=== PATIENT | male | born 1990 | race Caucasian/White ===

== ENCOUNTER 2018-05-22 09:19 | Inpatient (IN) | payer OTHER ==
[2018-05-22 09:31] VITALS: BMI 20.7
--- NOTE | 2018-05-22 10:45 | HP ---
COWS - Scale Resting Pulse: 0= [place] 80 or Below Sweatin= Chills/Flushing Restless Observation: 1= Difficult to Sit Still Pupil Size: 0= Normal to Room Light Bone or Joint Aches: 2= Severe Diffuse Aches Runny Nose/ Eye Tearin= Nasal Congestion GI Upset > 30mins: 2= Nausea/Diarrhea Tremor Observation: 1= Tremor [place], Not Seen Yawning Observation: 1= 1-2x During Session Anxiety or Irritability: 1=Feels Anxious/Irritable Goose Flesh Skin: 0=Smooth Skin COWS Score: 10 CIWA Score - CIWA Score Nausea/Vomitin-Mild Nausea/No Vomiting Muscle Tremors: 1-None Visible, but [place] Anxiety: 2 Agitation: 1-Slight > Activity Paroxysmal Sweats: No Perspiration Orientation: 1-Uncertain about Date Tacttile Disturbances: 1-Very Mild Itch/Numbness Auditory Disturbances: 0-None Visual Disturbances: 0-None Headache: 1-Very Mild CIWA-Ar Total Score: 8 Admission ROS [facility] - HPI Chief Complaint: I need help, I get too sick without the heroin Allergies/Adverse Reactions: Allergies Allergy/AdvReac Type Severity Reaction Status Date / Time No Known Allergies Allergy Verified 05/22/18 10:38 History of Present Illness: 27 yo gentleman here for detox from alcohol, heroin. Denies seizures or black outs. First time here for treatment. Exam Limitations: Clinical Condition - Ebola screening Have you traveled outside of the country in the last 21 days: No Have you had contact with anyone from an Ebola affected area: No Have you been sick,other than usual withdrawal symptoms: No Do you have a fever: No - Review of Systems Constitutional: Loss of Appetite, Changes in sleep, Weakness EENT: reports: Nose Congestion Respiratory: reports: No Symptoms reported Cardiac: reports: No Symptoms Reported GI: reports: Nausea, Poor Appetite, Poor Fluid Intake, Abdominal cramping : reports: Frequency Musculoskeletal: reports: Back Pain, Muscle Pain Integumentary: reports: Dryness Neuro: reports: Headache Endocrine: reports: No Symptoms Reported Hematology: reports: No Symptoms Reported Psychiatric: reports: Judgement Intact, Mood/Affect Appropiate, Anxious Other Systems: Reviewed and Negative Patient History - Patient Medical History Hx Asthma: No Hx Chronic Obstructive Pulmonary Disease (COPD): No Hx Cancer: No Hx Cardiac Disorders: No Hx Congestive Heart Failure: No Hx Hypertension: No HX Cerebrovascular Accident: No Hx Seizures: No Hx Diabetes: No Hx Gastrointestinal Disorders: No Hx Liver Disease: No Hx Genitourinary Disorders: No Hx Sexually Transmitted Disorders: No Hx Renal Disease (ESRD): No Hx Thyroid Disease: No Hx Human Immunodeficiency Virus (HIV): No Hx Hepatitis C: No Hx Depression: No Hx Suicide Attempt: No Hx Schizophrenia: No - Patient Surgical History Past Surgical History: Yes Hx Neurologic Surgery: No Hx Cataract Extraction: No Hx Cardiac Surgery: No Hx Lung Surgery: No Hx Breast Surgery: No Hx Breast Biopsy: No Hx Abdominal Surgery: Yes (hernia repair- 2016) Hx Appendectomy: No Hx Cholecystectomy: No Hx Genitourinary Surgery: No Hx Section: No Hx Orthopedic Surgery: No - PPD History Previous Implant?: Yes Documented Results: Negative w/o proof Implanted On Prior R Admission?: No PPD to be Administered?: Yes - Reproductive History Patient is a Female of Child Bearing Age (11 -55 yrs old): No (male) - Smoking Cessation Smoking history: Never smoked Have you smoked in the past 12 months: No - Substance & Tx. History Hx Alcohol Use: Yes Hx Substance Use: Yes Substance Use Type: Alcohol, Cocaine, Heroin, Marijuana Hx Substance Use Treatment: Yes (history methadone program in [facility]) - Substances Abused Heroin Route: Injection Frequency: Daily Amount used: 4 bags-$40 Age of first use: 25 Date of Last Use: 05/22/18 Alcohol Route: Oral Frequency: Daily Amount used: beer-3cans 24 oz Age of first use: 18 Date of Last Use: 05/21/18 Cocaine Route: Injection Frequency: Daily Amount used: 1bag Age of first use: 27 Date of Last Use: 05/21/18 street methaone Route: Oral Frequency: 3-6 times per week Amount used: 10mg Age of first use: 26 Date of Last Use: 05/21/18 marijuana Route: Smoking Frequency: 1-2 times per week Amount used: 1 blunt Age of first use: 18 Date of Last Use: 05/20/18 Family Disease History - Family Disease History Family Disease History: Other: Father ( - fire - etoh), Mother (living - healthy), Brother (four - living - healthy), Sister (two - living - healthy), Daughter (two - 8 and six ) Admission Physical Exam [facility] - Vital Signs Vital Signs: Vital Signs - 24 hr 05/22/18 09:29 Temperature 97.4 F L Pulse Rate 79 Respiratory 18 Rate Blood Pressure 133/70 - Physical General Appearance: Yes: Nourished, Appropriately Dressed, Moderate Distress, Thin, Anxious HEENTM: Yes: EOMI, Hearing grossly Normal, Normocephalic, Normal Voice, Pharynx Normal Respiratory: Yes: Normal Breath Sounds, No Respiratory Distress Neck: Yes: No masses,lesions,Nodules, Supple Breast: Yes: Breast Exam Deferred Cardiology: Yes: Regular Rhythm, Regular Rate Abdominal: Yes: Flat, Soft Genitourinary: Yes: Frequency Back: Yes: Normal Inspection Musculoskeletal: Yes: full range of Motion, Gait Steady Extremities: Yes: Normal Capillary Refill, Normal Inspection, Normal Range of Motion, Non-Tender Neurological: Yes: Alert, Motor Strength 5/5, Normal Mood/Affect, Normal Response Integumentary: Yes: Normal Color, Warm, Track [place] (both arms) Lymphatic: Yes: Within Normal Limits - Diagnostic (1) Alcohol dependence with uncomplicated withdrawal Current Visit: Yes Status: Acute (2) Opioid dependence with withdrawal Current Visit: Yes Status: Acute (3) Cocaine dependence Current Visit: Yes Status: Acute Qualifiers: Substance use status: uncomplicated Qualified Code(s): F14.20 - Cocaine dependence, uncomplicated (4) Marijuana dependence Current Visit: Yes Status: Acute (5) Underweight Current Visit: Yes Status: Acute Cleared for Admission [facility] - Detox or Rehab [facility] Level of Care: Medically Managed Detox Regimen/Protocol: Methadone/Librium [facility] Breath Alcohol Content Breath Alcohol Content: 0 Urine Drug Screen - Results Drug Screen Negative: No Urine Drug Screen Results: THC-Marijuana, CHAKA-Cocaine, OPI-Opiates, MTD- Methadone
[2018-05-22] MEDS ORDERED: MAGNESIUM CITRATE 300 ML BOTTLE PO PRN (10:51)
[2018-05-22] MEDS ORDERED: chlordiazePOXIDE HCL 25 MG CAPSULE PO PRN (10:51)
[2018-05-22] MEDS ORDERED: LOPERAMIDE HCL 2 MG CAPSULE PO PRN (10:51)
[2018-05-22] MEDS ORDERED: MAG HYDROX/AL HYDROX/SIMETH 30 ML UNIT-DOSE CUP PO PRN (10:51)
[2018-05-22] MEDS ORDERED: guaiFENesin/D-METHORPHAN HB 10 ML UNIT-DOSE CUPS PO PRN (10:51)
[2018-05-22] MEDS ORDERED: P-EPHED 60MG/TRIPROLIDI 2.5MG TABLET PO PRN (10:51)
[2018-05-22] MEDS ORDERED: ACETAMINOPHEN 325 MG TABLET (FP) PO PRN (10:51)
[2018-05-22] MEDS ORDERED: MAGNESIUM HYDROX 2400MG/30ML ORAL SUSPENSION 30 ML CUP PO PRN (10:51)
[2018-05-22] MEDS ORDERED: MENTHOL/PHENOL 1 EACH UD MM PRN (10:51)
[2018-05-22] MEDS ORDERED: IBUPROFEN 400 MG TABLET (FP) PO PRN (10:51)
[2018-05-22] MEDS ORDERED: METHADONE HCL 10 MG TABLET (FOR DETOX USE ONLY) PO ONE ×2 (12:00→23:00)
[2018-05-22] MEDS ORDERED: chlordiazePOXIDE HCL 25 MG CAPSULE PO ONE (12:00)
--- NOTE | 2018-05-22 14:43 | EKG ---
Test Reason : Blood Pressure : / mmHG Vent. Rate : 061 BPM Atrial Rate : 061 BPM P-R Int : 144 ms QRS Dur : 094 ms QT Int : 426 ms P-R-T Axes : 054 081 055 degrees QTc Int : 428 ms NORMAL SINUS RHYTHM NORMAL ECG NO PREVIOUS ECGS AVAILABLE Confirmed by Rhys Osborn ([id number]) on 05/22/2018 2:42:42 PM Referred By: Abby Agrawal Confirmed By:Rhys Osborn
[2018-05-22] MEDS: chlordiazePOXIDE HCL 25 MG CAPSULE PO SCH ×2 (17:21→22:46)
[2018-05-22] MEDS ORDERED: MELATONIN 5 MG TABLETS PO PRN (22:00)
[2018-05-22 22:11] LABS: URINE APPEARANCE CLEAR; URINE BILIRUBIN NEGATIVE (<2.0 mg/dL); URINE COLOR YELLOW; URINE GLUCOSE (UA) NEGATIVE (NEGATIVE); URINE KETONE NEGATIVE (NEGATIVE); URINE LEUK ESTERASE NEGATIVE (NEGATIVE); URINE NITRITE NEGATIVE (NEGATIVE); URINE PROTEIN NEGATIVE (NEGATIVE); URINE UROBILINOGEN 4.0 E.U/dl mg/dL (0.2-1.0)
[2018-05-22] MEDS: THIAMINE HCL 100 MG TABLET (FP) PO SCH (22:46)
[2018-05-23] MEDS: chlordiazePOXIDE HCL 25 MG CAPSULE PO SCH ×4 (06:00→22:32)
[2018-05-23] MEDS ORDERED: METHADONE HCL 10 MG TABLET (FOR DETOX USE ONLY) PO SCH (10:00)
[2018-05-23 10:14] LABS: HEMATOCRIT 41.5 % (35.4-49); HEMOGLOBIN 13.5 GM/dL (11.7-16.9); MCH 31.7 pg (25.7-33.7); MCHC 32.6 g/dl (32.0-35.9); MEAN CELL VOLUME 97.2 fl (80-96); MEAN PLT VOLUME 7.8 fl (7.5-11.1); PLATELET COUNT 239 K/MM3 (134-434); RBC 4.27 M/mm3 (4.00-5.60); RDW 13.8 % (11.9-15.9); WHITE BLOOD COUNT 3.7 K/mm3 (4.0-10.0)
[2018-05-23] MEDS: PRENATAL VITAMINS W/ FOLIC ACID TABLET (FP) PO SCH (10:23)
[2018-05-23 10:28] LABS: ALBUMIN 3.2 g/dl (3.4-5.0); ANION GAP 5 (8-16); BILIRUBIN,TOTAL 0.5 mg/dL (0.2-1.0); BLOOD UREA NITROGEN 14 mg/dL (7-18); CALCIUM 10.1 mg/dL (8.5-10.1); CHLORIDE 109 mmol/L (98-107); CO2 29 mmol/L (21-32); GLUCOSE,RANDOM 76 mg/dL (74-106); POTASSIUM 4.6 mmol/L (3.5-5.1); SGOT/AST 31 U/L (15-37); SGPT/ALT 33 U/L (12-78); SODIUM 143 mmol/L (136-145); TOT PROT 6.2 g/dl (6.4-8.2)
[2018-05-23 10:29] LABS: ALK PHOS 78 U/L (45-117); CREATININE 0.8 mg/dL (0.7-1.3)
--- NOTE | 2018-05-23 11:34 | PN ---
[facility] Progress Note Note: Vital Signs Temperature 97.7 F 05/23/18 09:24 Pulse Rate 75 05/23/18 09:24 Respiratory Rate 18 05/23/18 09:24 Blood Pressure 129/84 05/23/18 09:24 O2 Sat by Pulse Oximetry (%) Laboratory Last Values WBC 3.7 K/mm3 (4.0-10.0) L 05/23/18 07:20 RBC 4.27 M/mm3 (4.00-5.60) 05/23/18 07:20 Hgb 13.5 GM/dL (11.7-16.9) 05/23/18 07:20 Hct 41.5 % (35.4-49) 05/23/18 07:20 MCV 97.2 fl (80-96) H 05/23/18 07:20 MCH 31.7 pg (25.7-33.7) 05/23/18 07:20 MCHC 32.6 g/dl (32.0-35.9) 05/23/18 07:20 RDW 13.8 % (11.9-15.9) 05/23/18 07:20 Plt Count 239 K/MM3 (134-434) 05/23/18 07:20 MPV 7.8 fl (7.5-11.1) 05/23/18 07:20 Sodium 143 mmol/L (136-145) 05/23/18 07:20 Potassium 4.6 mmol/L (3.5-5.1) 05/23/18 07:20 Chloride 109 mmol/L (98-107) H 05/23/18 07:20 Carbon Dioxide 29 mmol/L (21-32) 05/23/18 07:20 Anion Gap 5 (8-16) L 05/23/18 07:20 BUN 14 mg/dL (7-18) 05/23/18 07:20 Creatinine 0.8 mg/dL (0.7-1.3) 05/23/18 07:20 Creat Clearance w eGFR > 60 (>60) 05/23/18 07:20 Random Glucose 76 mg/dL (74-106) 05/23/18 07:20 Calcium 10.1 mg/dL (8.5-10.1) 05/23/18 07:20 Total Bilirubin 0.5 mg/dL (0.2-1.0) 05/23/18 07:20 AST 31 U/L (15-37) 05/23/18 07:20 ALT 33 U/L (12-78) 05/23/18 07:20 Alkaline Phosphatase 78 U/L (45-117) 05/23/18 07:20 Total Protein 6.2 g/dl (6.4-8.2) L 05/23/18 07:20 Albumin 3.2 g/dl (3.4-5.0) L 05/23/18 07:20 Urine Color Yellow 05/22/18 15:00 Urine Appearance Clear 05/22/18 15:00 Urine pH 7.0 (5.0-8.0) 05/22/18 15:00 Ur Specific [place] 1.021 (1.001-1.035) 05/22/18 15:00 Urine Protein Negative (NEGATIVE) 05/22/18 15:00 Urine Glucose (UA) Negative (NEGATIVE) 05/22/18 15:00 Urine Ketones Negative (NEGATIVE) 05/22/18 15:00 Urine Blood Negative (NEGATIVE) 05/22/18 15:00 Urine Nitrite Negative (NEGATIVE) 05/22/18 15:00 Urine Bilirubin Negative (<2.0 mg/dL) 05/22/18 15:00 Urine Urobilinogen 4.0 e.u/dl mg/dL (0.2-1.0) 05/22/18 15:00 Ur Leukocyte Esterase Negative (NEGATIVE) 05/22/18 15:00 RPR Titer Nonreactive (NONREACTIVE) 05/23/18 07:20 HIV 1&2 Antibody Screen Negative 05/23/18 07:20 HIV P24 Antigen Negative 05/23/18 07:20 Patient reports he shared a needle with his friend prior to admission and is concerned regarding meli Hep C. HCV labs ordered. Needle safety discussed with patient.
--- NOTE | 2018-05-23 14:10 | PN ---
[facility] CIWA - CIWA Score Nausea/Vomitin Muscle Tremors: 3 Anxiety: 3 Agitation: 3 Paroxysmal Sweats: 3 Orientation: 0-Oriented Tacttile Disturbances: 0-None Auditory Disturbances: 0-None Visual Disturbances: 0-None Headache: 0-None Present CIWA-Ar Total Score: 15 S COWS - Scale Resting Pulse: 0= [place] 80 or Below Sweatin= Chills/Flushing Restless Observation: 1= Difficult to Sit Still Pupil Size: 0= Normal to Room Light Bone or Joint Aches: 1= Mild Discomfort Runny Nose/ Eye Tearin= Nasal Congestion GI Upset > 30mins: 1= Stomach Cramp Tremor Observation of Outstretched Hands: 2= Slight Tremor Visible Yawning Observation: 1= 1-2x During Session Anxiety or Irritability: 2=Irritable/Anxious Goose Flesh Skin: 0=Smooth Skin COWS Score: 10 [facility] Progress Note (SOAP) Subjective: Shakes sweats Anxious Objective: 05/23/18 14:07 Anxious A & O x 3, not acute distress Vital Signs Temperature 97.7 F 05/23/18 09:24 Pulse Rate 75 05/23/18 09:24 Respiratory Rate 18 05/23/18 09:24 Blood Pressure 129/84 05/23/18 09:24 O2 Sat by Pulse Oximetry (%) Laboratory Last Values WBC 3.7 K/mm3 (4.0-10.0) L 05/23/18 07:20 RBC 4.27 M/mm3 (4.00-5.60) 05/23/18 07:20 Hgb 13.5 GM/dL (11.7-16.9) 05/23/18 07:20 Hct 41.5 % (35.4-49) 05/23/18 07:20 MCV 97.2 fl (80-96) H 05/23/18 07:20 MCH 31.7 pg (25.7-33.7) 05/23/18 07:20 MCHC 32.6 g/dl (32.0-35.9) 05/23/18 07:20 RDW 13.8 % (11.9-15.9) 05/23/18 07:20 Plt Count 239 K/MM3 (134-434) 05/23/18 07:20 MPV 7.8 fl (7.5-11.1) 05/23/18 07:20 Sodium 143 mmol/L (136-145) 05/23/18 07:20 Potassium 4.6 mmol/L (3.5-5.1) 05/23/18 07:20 Chloride 109 mmol/L (98-107) H 05/23/18 07:20 Carbon Dioxide 29 mmol/L (21-32) 05/23/18 07:20 Anion Gap 5 (8-16) L 05/23/18 07:20 BUN 14 mg/dL (7-18) 05/23/18 07:20 Creatinine 0.8 mg/dL (0.7-1.3) 05/23/18 07:20 Creat Clearance w eGFR > 60 (>60) 05/23/18 07:20 Random Glucose 76 mg/dL (74-106) 05/23/18 07:20 Calcium 10.1 mg/dL (8.5-10.1) 05/23/18 07:20 Total Bilirubin 0.5 mg/dL (0.2-1.0) 05/23/18 07:20 AST 31 U/L (15-37) 05/23/18 07:20 ALT 33 U/L (12-78) 05/23/18 07:20 Alkaline Phosphatase 78 U/L (45-117) 05/23/18 07:20 Total Protein 6.2 g/dl (6.4-8.2) L 05/23/18 07:20 Albumin 3.2 g/dl (3.4-5.0) L 05/23/18 07:20 Urine Color Yellow 05/22/18 15:00 Urine Appearance Clear 05/22/18 15:00 Urine pH 7.0 (5.0-8.0) 05/22/18 15:00 Ur Specific [place] 1.021 (1.001-1.035) 05/22/18 15:00 Urine Protein Negative (NEGATIVE) 05/22/18 15:00 Urine Glucose (UA) Negative (NEGATIVE) 05/22/18 15:00 Urine Ketones Negative (NEGATIVE) 05/22/18 15:00 Urine Blood Negative (NEGATIVE) 05/22/18 15:00 Urine Nitrite Negative (NEGATIVE) 05/22/18 15:00 Urine Bilirubin Negative (<2.0 mg/dL) 05/22/18 15:00 Urine Urobilinogen 4.0 e.u/dl mg/dL (0.2-1.0) 05/22/18 15:00 Ur Leukocyte Esterase Negative (NEGATIVE) 05/22/18 15:00 RPR Titer Nonreactive (NONREACTIVE) 05/23/18 07:20 HIV 1&2 Antibody Screen Negative 05/23/18 07:20 HIV P24 Antigen Negative 05/23/18 07:20 labs noted, wnl Assessment: 05/23/18 14:09 withdrawal sx Plan: continue detox
[2018-05-23] MEDS ORDERED: NICOTINE POLACRILEX 4 MG GUM BUC PRN (17:28)
--- NOTE | 2018-05-23 17:31 | PN ---
[facility] Progress Note Note: Patient requested nicotine gum, patient uses 1-2 packs of cigarettes per day. GUM 4mg and patch 21 mg ordered.
[2018-05-23] MEDS: THIAMINE HCL 100 MG TABLET (FP) PO SCH (22:32)
[2018-05-24] MEDS: chlordiazePOXIDE HCL 25 MG CAPSULE PO SCH ×2 (06:32→10:09)
[2018-05-24] MEDS: PRENATAL VITAMINS W/ FOLIC ACID TABLET (FP) PO SCH (10:09)
[2018-05-24] MEDS: METHADONE HCL 5 MG TABLET (FOR DETOX USE ONLY) PO SCH (10:09)
[2018-05-24] MEDS: NICOTINE 21 MG/24 HOURS TOPICAL PATCH TD SCH (10:10)
--- NOTE | 2018-05-24 12:22 | CONSULT ---
[facility] Psychiatric Consult - Data Date of interview: 05/24/18 Admission source: [facility]
[2018-05-24] MEDS: hydrOXYzine PAMOATE 25 MG CAPSULE (FP) PO PRN (14:13)
--- NOTE | 2018-05-24 15:14 | PN ---
S CIWA - CIWA Score Nausea/Vomitin Muscle Tremors: 3 Anxiety: 4-Mod. Anxious/Guarded Agitation: 5 Paroxysmal Sweats: 2 Orientation: 0-Oriented Tacttile Disturbances: 0-None Auditory Disturbances: 0-None Visual Disturbances: 0-None Headache: 0-None Present CIWA-Ar Total Score: 16 S Progress Note (SOAP) Subjective: Shakes sweats Anxious, Objective: 05/24/18 15:09 Anxious A & O x 3, not acute distress Repeatedly asking about his Hep C status. Vital Signs Temperature 97.3 F L 05/24/18 14:31 Pulse Rate 65 05/24/18 14:31 Respiratory Rate 16 05/24/18 14:31 Blood Pressure 128/72 05/24/18 14:31 O2 Sat by Pulse Oximetry (%) withdrawal sx Anxiety Plan: continue detox Await result from lab - explained to pt that the the Ab test will be ready in a couple of days
[2018-05-24] MEDS: chlordiazePOXIDE 5 MG CAPSULE PO SCH ×2 (17:32→22:08)
[2018-05-24] MEDS: THIAMINE HCL 100 MG TABLET (FP) PO SCH (22:08)
[2018-05-25] MEDS: chlordiazePOXIDE 5 MG CAPSULE PO SCH ×2 (06:12→10:19)
[2018-05-25] MEDS: NICOTINE 21 MG/24 HOURS TOPICAL PATCH TD SCH (10:19)
[2018-05-25] MEDS: PRENATAL VITAMINS W/ FOLIC ACID TABLET (FP) PO SCH (10:19)
[2018-05-25] MEDS: METHADONE HCL 5 MG TABLET (FOR DETOX USE ONLY) PO SCH (10:20)
--- NOTE | 2018-05-25 13:36 | PN ---
[facility] Progress Note (SOAP) Subjective: Sweating, Anxious. Objective: PATIENT A & O X 3, OBSERVED AMBULATING ON UNIT. NO ACUTE DISTRESS. 05/25/18 13:34 Vital Signs Temperature 97.4 F L 05/25/18 13:32 Pulse Rate 81 05/25/18 13:32 Respiratory Rate 16 05/25/18 13:32 Blood Pressure 130/74 05/25/18 13:32 O2 Sat by Pulse Oximetry (%) Laboratory Tests 05/22/18 05/23/18 05/23/18 15:00 07:20 07:20 WBC 3.7 L RBC 4.27 Hgb 13.5 Hct 41.5 MCV 97.2 H MCH 31.7 MCHC 32.6 RDW 13.8 Plt Count 239 MPV 7.8 Sodium Potassium Chloride Carbon Dioxide Anion Gap BUN Creatinine Creat Clearance w eGFR Random Glucose Calcium Total Bilirubin AST ALT Alkaline Phosphatase Total Protein Albumin Urine Color Yellow Urine Appearance Clear Urine pH 7.0 Ur Specific [place] 1.021 Urine Protein Negative Urine Glucose (UA) Negative Urine Ketones Negative Urine Blood Negative Urine Nitrite Negative Urine Bilirubin Negative Urine Urobilinogen 4.0 e.u/dl Ur Leukocyte Esterase Negative RPR Titer Hep C Ab Diagnostic Liver Fibrosis Interp HIV 1&2 Antibody Screen Negative HIV P24 Antigen Negative 05/23/18 05/23/18 05/24/18 07:20 07:20 07:00 WBC RBC Hgb Hct MCV MCH MCHC RDW Plt Count MPV Sodium 143 Potassium 4.6 Chloride 109 H Carbon Dioxide 29 Anion Gap 5 L BUN 14 Creatinine 0.8 Creat Clearance w eGFR > 60 Random Glucose 76 Calcium 10.1 Total Bilirubin 0.5 AST 31 ALT 33 Alkaline Phosphatase 78 Total Protein 6.2 L Albumin 3.2 L Urine Color Urine Appearance Urine pH Ur Specific [place] Urine Protein Urine Glucose (UA) Urine Ketones Urine Blood Urine Nitrite Urine Bilirubin Urine Urobilinogen Ur Leukocyte Esterase RPR Titer Nonreactive Hep C Ab Diagnostic <0.1 Liver Fibrosis Interp HIV 1&2 Antibody Screen HIV P24 Antigen LABS NOTED. Assessment: 05/25/18 13:35 WITHDRAWAL SYMPTOMS. Plan: CONTINUE DETOX. INCREASE DAILY PO FLUID INTAKE.
[2018-05-25] MEDS: chlordiazePOXIDE HCL 10 MG CAPSULE PO SCH ×2 (17:32→23:16)
[2018-05-25] MEDS: THIAMINE HCL 100 MG TABLET (FP) PO SCH (23:16)
[2018-05-26] MEDS: chlordiazePOXIDE HCL 10 MG CAPSULE PO SCH ×2 (05:43→10:23)
[2018-05-26] MEDS ORDERED: METHADONE HCL 10 MG TABLET (FOR DETOX USE ONLY) PO SCH (10:00)
[2018-05-26] MEDS: NICOTINE 21 MG/24 HOURS TOPICAL PATCH TD SCH (10:23)
[2018-05-26] MEDS: PRENATAL VITAMINS W/ FOLIC ACID TABLET (FP) PO SCH (10:23)
--- NOTE | 2018-05-26 14:50 | PN ---
[facility] Progress Note (SOAP) Subjective: Anxious, Sweating. Objective: 05/26/18 14:51 Vital Signs Temperature 97.1 F L 05/26/18 13:58 Pulse Rate 87 05/26/18 13:58 Respiratory Rate 20 05/26/18 13:58 Blood Pressure 105/63 05/26/18 13:58 O2 Sat by Pulse Oximetry (%) Laboratory Tests 05/22/18 05/23/18 05/23/18 15:00 07:20 07:20 WBC 3.7 L RBC 4.27 Hgb 13.5 Hct 41.5 MCV 97.2 H MCH 31.7 MCHC 32.6 RDW 13.8 Plt Count 239 MPV 7.8 Sodium Potassium Chloride Carbon Dioxide Anion Gap BUN Creatinine Creat Clearance w eGFR Random Glucose Calcium Total Bilirubin AST ALT Alkaline Phosphatase Total Protein Albumin Urine Color Yellow Urine Appearance Clear Urine pH 7.0 Ur Specific [place] 1.021 Urine Protein Negative Urine Glucose (UA) Negative Urine Ketones Negative Urine Blood Negative Urine Nitrite Negative Urine Bilirubin Negative Urine Urobilinogen 4.0 e.u/dl Ur Leukocyte Esterase Negative RPR Titer Hep C Ab Diagnostic Liver Fibrosis Interp HIV 1&2 Antibody Screen Negative HIV P24 Antigen Negative 05/23/18 05/23/18 05/24/18 07:20 07:20 07:00 WBC RBC Hgb Hct MCV MCH MCHC RDW Plt Count MPV Sodium 143 Potassium 4.6 Chloride 109 H Carbon Dioxide 29 Anion Gap 5 L BUN 14 Creatinine 0.8 Creat Clearance w eGFR > 60 Random Glucose 76 Calcium 10.1 Total Bilirubin 0.5 AST 31 ALT 33 Alkaline Phosphatase 78 Total Protein 6.2 L Albumin 3.2 L Urine Color Urine Appearance Urine pH Ur Specific [place] Urine Protein Urine Glucose (UA) Urine Ketones Urine Blood Urine Nitrite Urine Bilirubin Urine Urobilinogen Ur Leukocyte Esterase RPR Titer Nonreactive Hep C Ab Diagnostic <0.1 Liver Fibrosis Interp HIV 1&2 Antibody Screen HIV P24 Antigen LABS NOTED. Assessment: 05/26/18 14:51 WITHDRAWAL SYMPTOMS. Plan: CONTINUE DETOX. PATIENT MADE AWARE OF (NEGATIVE) HCV RESULT. PATIENT SCHEDULED FOR D/C TOMORROW.
[2018-05-26] MEDS: THIAMINE HCL 100 MG TABLET (FP) PO SCH (23:10)
[2018-05-27] MEDS: hydrOXYzine PAMOATE 25 MG CAPSULE (FP) PO PRN (01:26)
[2018-05-27] MEDS ORDERED: METHADONE HCL 5 MG TABLET (FOR DETOX USE ONLY) PO SCH (06:00)
[2018-05-27 10:22] VITALS: BP 140/85; PULSE 84; TEMP 97.5
--- NOTE | 2018-05-27 15:56 | PN ---
[facility] Progress Note (SOAP) Subjective: Patient denies current Detox symptoms and reports that he feels well overall. Objective: PATIENT A & O X 3, OBSERVED AMBULATING ON UNIT. NO ACUTE DISTRESS. 05/27/18 16:06 Vital Signs Temperature 97.5 F L 05/27/18 09:30 Pulse Rate 84 05/27/18 09:30 Respiratory Rate 20 05/27/18 09:30 Blood Pressure 140/85 05/27/18 09:30 O2 Sat by Pulse Oximetry (%) Laboratory Tests 05/22/18 05/23/18 05/23/18 15:00 07:20 07:20 WBC 3.7 L RBC 4.27 Hgb 13.5 Hct 41.5 MCV 97.2 H MCH 31.7 MCHC 32.6 RDW 13.8 Plt Count 239 MPV 7.8 Sodium Potassium Chloride Carbon Dioxide Anion Gap BUN Creatinine Creat Clearance w eGFR Random Glucose Calcium Total Bilirubin AST ALT Alkaline Phosphatase Total Protein Albumin Urine Color Yellow Urine Appearance Clear Urine pH 7.0 Ur Specific [place] 1.021 Urine Protein Negative Urine Glucose (UA) Negative Urine Ketones Negative Urine Blood Negative Urine Nitrite Negative Urine Bilirubin Negative Urine Urobilinogen 4.0 e.u/dl Ur Leukocyte Esterase Negative RPR Titer Hep C Ab Diagnostic Liver Fibrosis Interp HIV 1&2 Antibody Screen Negative HIV P24 Antigen Negative 05/23/18 05/23/18 05/24/18 07:20 07:20 07:00 WBC RBC Hgb Hct MCV MCH MCHC RDW Plt Count MPV Sodium 143 Potassium 4.6 Chloride 109 H Carbon Dioxide 29 Anion Gap 5 L BUN 14 Creatinine 0.8 Creat Clearance w eGFR > 60 Random Glucose 76 Calcium 10.1 Total Bilirubin 0.5 AST 31 ALT 33 Alkaline Phosphatase 78 Total Protein 6.2 L Albumin 3.2 L Urine Color Urine Appearance Urine pH Ur Specific [place] Urine Protein Urine Glucose (UA) Urine Ketones Urine Blood Urine Nitrite Urine Bilirubin Urine Urobilinogen Ur Leukocyte Esterase RPR Titer Nonreactive Hep C Ab Diagnostic <0.1 Liver Fibrosis Interp HIV 1&2 Antibody Screen HIV P24 Antigen LABS NOTED. Assessment: 05/27/18 16:06 COMPLETION OF DETOX REGIMEN. Plan: PATIENT SCHEDULED FOR DISCHARGE FROM DETOX UNIT TODAY.
--- NOTE | 2018-05-27 16:09 | DS ---
[facility] Detox Discharge Summary Admission Date: 05/22/18 Discharge Date: 05/27/18 - History Present History: Alcohol Dependence, Cannabis Dependence, Cocaine Dependence, Opioid Dependence Additional Comments: PATIENT GOING TO [facility] ([place], [place] AND WILL ATTEND '[facility]' (OUTPATIENT, [place], [place] FOR AFTERCARE. PATIENT WAS DISCHARGED FROM DETOX UNIT IN STABLE MEDICAL CONDITION. Pertinent Past History: Underweight. - Physical Exam Results Vital Signs: Vital Signs Temperature 97.5 F L 05/27/18 09:30 Pulse Rate 84 05/27/18 09:30 Respiratory Rate 20 05/27/18 09:30 Blood Pressure 140/85 05/27/18 09:30 O2 Sat by Pulse Oximetry (%) Pertinent Admission Physical Exam Findings: WITHDRAWAL SYMPTOMS. Laboratory Tests 05/22/18 05/23/18 05/23/18 15:00 07:20 07:20 WBC 3.7 L RBC 4.27 Hgb 13.5 Hct 41.5 MCV 97.2 H MCH 31.7 MCHC 32.6 RDW 13.8 Plt Count 239 MPV 7.8 Sodium Potassium Chloride Carbon Dioxide Anion Gap BUN Creatinine Creat Clearance w eGFR Random Glucose Calcium Total Bilirubin AST ALT Alkaline Phosphatase Total Protein Albumin Urine Color Yellow Urine Appearance Clear Urine pH 7.0 Ur Specific [place] 1.021 Urine Protein Negative Urine Glucose (UA) Negative Urine Ketones Negative Urine Blood Negative Urine Nitrite Negative Urine Bilirubin Negative Urine Urobilinogen 4.0 e.u/dl Ur Leukocyte Esterase Negative RPR Titer Hep C Ab Diagnostic Liver Fibrosis Interp HIV 1&2 Antibody Screen Negative HIV P24 Antigen Negative 05/23/18 05/23/18 05/24/18 07:20 07:20 07:00 WBC RBC Hgb Hct MCV MCH MCHC RDW Plt Count MPV Sodium 143 Potassium 4.6 Chloride 109 H Carbon Dioxide 29 Anion Gap 5 L BUN 14 Creatinine 0.8 Creat Clearance w eGFR > 60 Random Glucose 76 Calcium 10.1 Total Bilirubin 0.5 AST 31 ALT 33 Alkaline Phosphatase 78 Total Protein 6.2 L Albumin 3.2 L Urine Color Urine Appearance Urine pH Ur Specific [place] Urine Protein Urine Glucose (UA) Urine Ketones Urine Blood Urine Nitrite Urine Bilirubin Urine Urobilinogen Ur Leukocyte Esterase RPR Titer Nonreactive Hep C Ab Diagnostic <0.1 Liver Fibrosis Interp HIV 1&2 Antibody Screen HIV P24 Antigen LABS NOTED. - Treatment Hospital Course: Detox Protocol Followed, Detoxed Safely, Responded well, Discharged Condition Good Patient has Accepted a Rehab Referral to: PATIENT GOING TO [facility] ([place]PAT[place], [place]). - Medication Discharge Medications: Ambulatory Orders NK [No Known Home Medication] 05/22/18 - Diagnosis (1) Alcohol dependence with uncomplicated withdrawal Status: Acute (2) Cocaine dependence Status: Acute Qualifiers: Substance use status: uncomplicated Qualified Code(s): F14.20 - Cocaine dependence, uncomplicated (3) Marijuana dependence Status: Acute (4) Opioid dependence with withdrawal Status: Acute (5) Underweight Status: Acute - AMA Did Patient Leave Against Medical Advice: No
== END 2018-05-27 09:25 | disposition home or self-care (01) | DRG 773 ==
LOC: YASAS 09:19 → Y3N 11:37
PROVIDERS: ADMIT Surgery; ATTEND Surgery
PROC: HZ2ZZZZ Detoxification Services for Substance Abuse Treatment (ICD-10-PCS; principal; 2018-05-22)
DX: F11.23 Opioid dependence with withdrawal (principal); F10.230 Alcohol dependence with withdrawal, uncomplicated; F14.20 Cocaine dependence, uncomplicated; F12.20 Cannabis dependence, uncomplicated; R63.6 Underweight; Z68.20 Body mass index [BMI] 20.0-20.9, adult
CPT/HCPCS: 36415; 80053; 81003; 85027; 86593; 86803; 87389; 93005; 93010

== ENCOUNTER 2019-01-03 11:54 | Inpatient (IN) | payer OTHER ==
[2019-01-03 12:35] VITALS: BMI 22.4
--- NOTE | 2019-01-03 14:41 | HP ---
CIWA Score Nausea/Vomitin-Mild Nausea/No Vomiting Muscle Tremors: 4-Moderate,w/Arms Extend Anxiety: 4-Mod. Anxious/Guarded Agitation: 4-Moderately Restless Paroxysmal Sweats: 3 Orientation: 0-Oriented Tacttile Disturbances: 0-None Auditory Disturbances: 0-None Visual Disturbances: 0-None Headache: 0-None Present CIWA-Ar Total Score: 16 - Admission Criteria OASAS Guidelines: Admission for Medically Managed Detox: Requires at least one of the followin. CIWA greater than 12 2. Seizures within the past 24 hours 3. Delirium tremens within the past 24 hours 4. Hallucinations within the past 24 hours 5. Acute intervention needed for co occurring medical disorder 6. Acute intervention needed for co occurring psychiatric disorder 7. Severe withdrawal that cannot be handled at a lower level of care (continued vomiting, continued diarrhea, abnormal vital signs) requiring intravenous medication and/or fluids 8. Admission ROS [facility] Chief Complaint: pt is a 28yrold male with a history of alcohol dependence seeking detox for treatment. Allergies/Adverse Reactions: Allergies Allergy/AdvReac Type Severity Reaction Status Date / Time No Known Allergies Allergy Verified 01/03/19 13:00 History of Present Illness: pt also states he had belonged to a [facility] ([facility])but was discharged and referred to a suboxone program ([facility]). Pt states and it was confirmed he was at the program on thursday and received one SL 8mg/2mg but now pt is refusing to return to the suboxone program because he didnt like the way it made him feel. U/A toxicology result was pos for methadone and cannabis only. When asked about the methadone pt confessed he had take home bottles from his [facility] program and didnt returned them but did take the methadone. Pt was told he can return back to his suboxone program but pt refused to return back to taking suboxone. Pt was made aware he will not be detox with any methadone there is no opiates in his urine and he will need to go back to the methadone program and drop off the last two bottles he was given. pt in agreement. pt was also made aware he will only be detoxed for his alcohol dependence. pt in agreement. Exam Limitations: No Limitations - Ebola screening Have you traveled outside of the country in the last 21 days: No Have you had contact with anyone from an Ebola affected area: No Have you been sick,other than usual withdrawal symptoms: No Do you have a fever: No - Review of Systems Constitutional: Chills, Diaphoresis, Night Sweats, Changes in sleep EENT: reports: Tearing, Nose Congestion Respiratory: reports: No Symptoms reported Cardiac: reports: No Symptoms Reported GI: reports: Diarrhea, Poor Appetite, Poor Fluid Intake : reports: No Symptoms Reported Musculoskeletal: reports: Back Pain, Joint Pain Integumentary: reports: Flushing, Sweating Neuro: reports: Headache, Tingling, Tremors Endocrine: reports: Excessive Sweating, Flushing, Intolerance to Cold, Intolerance to Heat Hematology: reports: No Symptoms Reported Psychiatric: reports: Judgement Intact, Mood/Affect Appropiate, Orientated x3, Agitated, Anxious Other Systems: Reviewed and Negative Patient History - Patient Medical History Hx Anemia: No Hx Asthma: No Hx Chronic Obstructive Pulmonary Disease (COPD): No Hx Cancer: No Hx Cardiac Disorders: No Hx Congestive Heart Failure: No Hx Hypertension: No Hx Hypercholesterolemia: No Hx Pacemaker: No HX Cerebrovascular Accident: No Hx Seizures: No Hx Dementia: No Hx Diabetes: No Hx Gastrointestinal Disorders: No Hx Liver Disease: No Hx Genitourinary Disorders: No Hx Sexually Transmitted Disorders: No Hx Renal Disease (ESRD): No Hx Thyroid Disease: No Hx Human Immunodeficiency Virus (HIV): No Hx Hepatitis C: No Hx Depression: No Hx Suicide Attempt: No Hx Schizophrenia: No - Patient Surgical History Past Surgical History: Yes Hx Neurologic Surgery: No Hx Cataract Extraction: No Hx Cardiac Surgery: No Hx Lung Surgery: No Hx Breast Surgery: No Hx Breast Biopsy: No Hx Abdominal Surgery: No Hx Appendectomy: No Hx Cholecystectomy: No Hx Genitourinary Surgery: No Hx Section: No Hx Orthopedic Surgery: No Other Surgical History: left inguinal hernia repair in 2016 - PPD History Previous Implant?: Yes Documented Results: Negative w/proof Implanted On Prior [facility] Admission?: Yes Date: 05/24/18 Results: 0 mm PPD to be Administered?: No - Reproductive History Patient is a Female of Child Bearing Age (11 -55 yrs old): No - Smoking Cessation Smoking history: Former smoker Have you smoked in the past 12 months: No If you are a former smoker, when did you quit?: at age 22 Hx Chewing Tobacco Use: No Initiated information on smoking cessation: No - Substance & Tx. History Hx Alcohol Use: Yes Hx Substance Use: Yes Substance Use Type: Alcohol, Cocaine, Marijuana Hx Substance Use Treatment: Yes - Substances Abused Cocaine Route: Injection Frequency: 3-6 times per week Amount used: $20-30 Age of first use: 25 Date of Last Use: 12/27/18 Alcohol-beer1 Route: Oral Frequency: Daily Amount used: 1-6 pk. Age of first use: 18 Date of Last Use: 01/02/19 Marijuana Route: Smoking Frequency: Daily Amount used: $5-10 Age of first use: 21 Date of Last Use: 01/02/19 Family Disease History - Family Disease History Family Disease History: Other: Father ( - fire - etoh), Mother (living - healthy), Brother (four - living - healthy), Sister (two - living - healthy), Daughter (two - 8 and six ) Admission Physical Exam [facility] - Vital Signs Vital Signs: Vital Signs - 24 hr 01/03/19 12:31 Temperature 99.0 F Pulse Rate 70 Respiratory 19 Rate Blood Pressure 122/74 - Physical General Appearance: Yes: Appropriately Dressed, Mild Distress, Thin, Tremorous, Irritable, Sweating, Anxious HEENTM: Yes: Hearing grossly Normal, Normal Voice, Nasal Congestion Respiratory: Yes: Lungs Clear, Normal Breath Sounds, No Respiratory Distress Neck: Yes: No masses,lesions,Nodules Breast: Yes: Within Normal Limits Cardiology: Yes: Regular Rhythm, Regular Rate, S1, S2 Abdominal: Yes: Normal Bowel Sounds, Non Tender, Soft Genitourinary: Yes: Within Normal Limits Back: Yes: Normal Inspection Musculoskeletal: Yes: full range of Motion, Back pain, Muscle Pain Extremities: Yes: Normal Capillary Refill, Normal Inspection, Non-Tender, Tremors Neurological: Yes: Fully Oriented, Alert, Normal Response Integumentary: Yes: Normal Color, Diaphoresis Lymphatic: Yes: Within Normal Limits - Diagnostic (1) Alcohol dependence with uncomplicated withdrawal Current Visit: Yes Status: Chronic (2) Cocaine dependence Current Visit: Yes Status: Chronic Qualifiers: Substance use status: uncomplicated Qualified Code(s): F14.20 - Cocaine dependence, uncomplicated (3) Marijuana dependence Current Visit: Yes Status: Chronic (4) Underweight Current Visit: Yes Status: Acute Cleared for Admission [facility] - Detox or Rehab [facility] Level of Care: Medically Managed Detox Regimen/Protocol: Librium [facility] Breath Alcohol Content Breath Alcohol Content: 0 Urine Drug Screen - Results Drug Screen Negative: No Urine Drug Screen Results: THC-Marijuana, MTD-Methadone Inpatient Rehab Admission - Rehab Decision to Admit Inpatient rehab admission?: No
[2019-01-03] MEDS ORDERED: MENTHOL/PHENOL 1 EACH UD MM PRN (14:58)
[2019-01-03] MEDS ORDERED: ACETAMINOPHEN 325 MG TABLET (FP) PO PRN (14:58)
[2019-01-03] MEDS ORDERED: IBUPROFEN 400 MG TABLET (FP) PO PRN (14:58)
[2019-01-03] MEDS ORDERED: MAG HYDROX/AL HYDROX/SIMETH 30 ML UNIT-DOSE CUP PO PRN (14:58)
[2019-01-03] MEDS ORDERED: guaiFENesin/D-METHORPHAN HB 10 ML UNIT-DOSE CUPS PO PRN (14:58)
[2019-01-03] MEDS ORDERED: MAGNESIUM HYDROX 2400MG/30ML ORAL SUSPENSION 30 ML CUP PO PRN (14:58)
[2019-01-03] MEDS ORDERED: LOPERAMIDE HCL 2 MG CAPSULE PO PRN (14:58)
[2019-01-03] MEDS ORDERED: chlordiazePOXIDE HCL 25 MG CAPSULE PO PRN (14:58)
[2019-01-03] MEDS ORDERED: MAGNESIUM CITRATE 300 ML BOTTLE PO PRN (14:58)
[2019-01-03] MEDS ORDERED: chlordiazePOXIDE HCL 25 MG CAPSULE PO ONE (14:58)
[2019-01-03] MEDS ORDERED: P-EPHED 60MG/TRIPROLIDI 2.5MG TABLET PO PRN (14:58)
[2019-01-03] MEDS: chlordiazePOXIDE HCL 25 MG CAPSULE PO SCH ×2 (16:41→22:52)
[2019-01-03] MEDS: hydrOXYzine PAMOATE 50 MG CAPSULE (FP) PO PRN ×2 (16:42→22:50)
[2019-01-03] MEDS: MELATONIN 5 MG TABLETS PO PRN (22:50)
[2019-01-03] MEDS: IBUPROFEN 400 MG TABLET (FP) PO PRN (22:50)
[2019-01-03] MEDS: THIAMINE HCL 100 MG TABLET (FP) PO SCH (22:50)
[2019-01-04] MEDS: chlordiazePOXIDE HCL 25 MG CAPSULE PO SCH ×4 (05:43→22:14)
[2019-01-04] MEDS: hydrOXYzine PAMOATE 50 MG CAPSULE (FP) PO PRN ×2 (10:24→22:13)
[2019-01-04] MEDS: PRENATAL VITAMINS W/ FOLIC ACID TABLET (FP) PO SCH (10:25)
[2019-01-04] MEDS: IBUPROFEN 400 MG TABLET (FP) PO PRN ×3 (10:26→22:13)
[2019-01-04 12:38] LABS: HEMATOCRIT 43.1 % (35.4-49); HEMOGLOBIN 14.3 GM/dL (11.7-16.9); MCH 31.4 pg (25.7-33.7); MCHC 33.2 g/dl (32.0-35.9); MEAN CELL VOLUME 94.6 fl (80-96); MEAN PLT VOLUME 7.8 fl (7.5-11.1); PLATELET COUNT 248 K/MM3 (134-434); RBC 4.55 M/mm3 (4.00-5.60); RDW 13.7 % (11.9-15.9); WHITE BLOOD COUNT 4.9 K/mm3 (4.0-10.0)
[2019-01-04 12:53] LABS: ALBUMIN 3.4 g/dl (3.4-5.0); ALK PHOS 86 U/L (45-117); ANION GAP 6 MMOL/L (8-16); BILIRUBIN,TOTAL 0.3 mg/dL (0.2-1); BLOOD UREA NITROGEN 10 mg/dL (7-18); CALCIUM 10.3 mg/dL (8.5-10.1); CHLORIDE 109 mmol/L (98-107); CO2 26 mmol/L (21-32); CREATININE 0.8 mg/dL (0.55-1.3); GLUCOSE,RANDOM 69 mg/dL (74-106); POTASSIUM 4.1 mmol/L (3.5-5.1); SGOT/AST 10 U/L (15-37); SGPT/ALT 20 U/L (13-61); SODIUM 141 mmol/L (136-145); TOT PROT 6.4 g/dl (6.4-8.2)
--- NOTE | 2019-01-04 15:17 | PN ---
S CIWA - CIWA Score Nausea/Vomitin-Mild Nausea/No Vomiting Muscle Tremors: 3 Anxiety: 3 Agitation: 2 Paroxysmal Sweats: 1-Minimal Palms Moist Orientation: 1-Uncertain about Date Tacttile Disturbances: 0-None Auditory Disturbances: 0-None Visual Disturbances: 0-None Headache: 1-Very Mild CIWA-Ar Total Score: 12 S Progress Note (SOAP) Subjective: tremor sweating restlessness itchy skull patient requests methadone / suboxone discuss with the patient that patient needs to return to methadone program that last dose of methadone was Thursday01/02/19 that he has take home bottle for Thursday and he took the methadone however the patient said he does not want to return to the methadone program that [facility] and received "a film" patient go on that he dose not want to return to suboxone program Objective: 01/04/19 15:22 alcohol withdrawal sx Vital Signs Temperature 98.9 F 01/04/19 13:30 Pulse Rate 90 01/04/19 13:30 Respiratory Rate 18 01/04/19 13:30 Blood Pressure 134/75 01/04/19 13:30 O2 Sat by Pulse Oximetry (%) Laboratory Last Values WBC 4.9 K/mm3 (4.0-10.0) 01/04/19 07:00 RBC 4.55 M/mm3 (4.00-5.60) 01/04/19 07:00 Hgb 14.3 GM/dL (11.7-16.9) 01/04/19 07:00 Hct 43.1 % (35.4-49) 01/04/19 07:00 MCV 94.6 fl (80-96) 01/04/19 07:00 MCH 31.4 pg (25.7-33.7) 01/04/19 07:00 MCHC 33.2 g/dl (32.0-35.9) 01/04/19 07:00 RDW 13.7 % (11.9-15.9) 01/04/19 07:00 Plt Count 248 K/MM3 (134-434) 01/04/19 07:00 MPV 7.8 fl (7.5-11.1) 01/04/19 07:00 Sodium 141 mmol/L (136-145) 01/04/19 07:00 Potassium 4.1 mmol/L (3.5-5.1) 01/04/19 07:00 Chloride 109 mmol/L (98-107) H 01/04/19 07:00 Carbon Dioxide 26 mmol/L (21-32) 01/04/19 07:00 Anion Gap 6 MMOL/L (8-16) L 01/04/19 07:00 BUN 10 mg/dL (7-18) 01/04/19 07:00 Creatinine 0.8 mg/dL (0.55-1.3) 01/04/19 07:00 Creat Clearance w eGFR > 60 (>60) 01/04/19 07:00 Random Glucose 69 mg/dL (74-106) L 01/04/19 07:00 Calcium 10.3 mg/dL (8.5-10.1) H 01/04/19 07:00 Total Bilirubin 0.3 mg/dL (0.2-1) 01/04/19 07:00 AST 10 U/L (15-37) L 01/04/19 07:00 ALT 20 U/L (13-61) 01/04/19 07:00 Alkaline Phosphatase 86 U/L (45-117) 01/04/19 07:00 Total Protein 6.4 g/dl (6.4-8.2) 01/04/19 07:00 Albumin 3.4 g/dl (3.4-5.0) 01/04/19 07:00 RPR Titer Nonreactive (NONREACTIVE) 01/04/19 07:00 lab noted Assessment: 01/04/19 15:23 alcohol withdrawal sx itchy skull Plan: continue detox patient reported that he is feeling ok that able to tolerate food and fluid and attend to personal hygiene patient requests special shampoo for his hair patient is alert social with peers in day room
[2019-01-04] MEDS: SELENIUM SULFIDE 2.25% 180 ML SHAMPOO TP SCH (17:54)
[2019-01-04] MEDS: THIAMINE HCL 100 MG TABLET (FP) PO SCH (22:14)
[2019-01-04] MEDS: MELATONIN 5 MG TABLETS PO PRN (22:15)
[2019-01-05] MEDS: chlordiazePOXIDE HCL 25 MG CAPSULE PO SCH ×2 (06:15→10:45)
[2019-01-05] MEDS: IBUPROFEN 400 MG TABLET (FP) PO PRN ×2 (06:47→18:01)
[2019-01-05] MEDS: PRENATAL VITAMINS W/ FOLIC ACID TABLET (FP) PO SCH (10:45)
[2019-01-05] MEDS: SELENIUM SULFIDE 2.25% 180 ML SHAMPOO TP SCH (10:46)
--- NOTE | 2019-01-05 15:29 | PN ---
S CIWA - CIWA Score Nausea/Vomitin-No Nausea/No Vomiting Muscle Tremors: 2 Anxiety: 1-Mildly Anxious Agitation: 2 Paroxysmal Sweats: 1-Minimal Palms Moist Orientation: 1-Uncertain about Date Tacttile Disturbances: 0-None Auditory Disturbances: 0-None Visual Disturbances: 0-None Headache: 1-Very Mild CIWA-Ar Total Score: 8 S Progress Note (SOAP) Subjective: tremor sweating feeling better today social with peers in day room Objective: 01/05/19 15:28 Vital Signs Temperature 98.0 F 01/05/19 13:40 Pulse Rate 20 L 01/05/19 13:40 Respiratory Rate 75 H 01/05/19 13:40 Blood Pressure 129/75 01/05/19 13:40 O2 Sat by Pulse Oximetry (%) Laboratory Last Values WBC 4.9 K/mm3 (4.0-10.0) 01/04/19 07:00 RBC 4.55 M/mm3 (4.00-5.60) 01/04/19 07:00 Hgb 14.3 GM/dL (11.7-16.9) 01/04/19 07:00 Hct 43.1 % (35.4-49) 01/04/19 07:00 MCV 94.6 fl (80-96) 01/04/19 07:00 MCH 31.4 pg (25.7-33.7) 01/04/19 07:00 MCHC 33.2 g/dl (32.0-35.9) 01/04/19 07:00 RDW 13.7 % (11.9-15.9) 01/04/19 07:00 Plt Count 248 K/MM3 (134-434) 01/04/19 07:00 MPV 7.8 fl (7.5-11.1) 01/04/19 07:00 Sodium 141 mmol/L (136-145) 01/04/19 07:00 Potassium 4.1 mmol/L (3.5-5.1) 01/04/19 07:00 Chloride 109 mmol/L (98-107) H 01/04/19 07:00 Carbon Dioxide 26 mmol/L (21-32) 01/04/19 07:00 Anion Gap 6 MMOL/L (8-16) L 01/04/19 07:00 BUN 10 mg/dL (7-18) 01/04/19 07:00 Creatinine 0.8 mg/dL (0.55-1.3) 01/04/19 07:00 Creat Clearance w eGFR > 60 (>60) 01/04/19 07:00 Random Glucose 69 mg/dL (74-106) L 01/04/19 07:00 Calcium 10.3 mg/dL (8.5-10.1) H 01/04/19 07:00 Total Bilirubin 0.3 mg/dL (0.2-1) 01/04/19 07:00 AST 10 U/L (15-37) L 01/04/19 07:00 ALT 20 U/L (13-61) 01/04/19 07:00 Alkaline Phosphatase 86 U/L (45-117) 01/04/19 07:00 Total Protein 6.4 g/dl (6.4-8.2) 01/04/19 07:00 Albumin 3.4 g/dl (3.4-5.0) 01/04/19 07:00 RPR Titer Nonreactive (NONREACTIVE) 01/04/19 07:00 lab noted Assessment: 01/05/19 15:29 alcohol withdrawal sx Plan: continue detox
[2019-01-05] MEDS: chlordiazePOXIDE 5 MG CAPSULE PO SCH ×2 (17:57→22:14)
[2019-01-05] MEDS: hydrOXYzine PAMOATE 50 MG CAPSULE (FP) PO PRN (22:14)
[2019-01-05] MEDS: MELATONIN 5 MG TABLETS PO PRN (22:14)
[2019-01-05] MEDS: THIAMINE HCL 100 MG TABLET (FP) PO SCH (22:14)
[2019-01-06] MEDS: chlordiazePOXIDE 5 MG CAPSULE PO SCH ×2 (06:14→10:44)
--- NOTE | 2019-01-06 09:10 | DS ---
[facility] Detox Discharge Summary Admission Date: 01/03/19 Discharge Date: 01/06/19 - History Present History: Alcohol Dependence Additional Comments: 28 years old male admitted on 01/03/19 for alcohol withdrawal stabilization feeling better today prefers to go to rehab today alert no suicidal ideation aftercare [facility] Pertinent Past History: feeling better today patient has confidence to manage alcohol withdrawal symptoms and prefers beginning chemical rehab today discuss with counselor that [facility] available today - Physical Exam Results Vital Signs: Vital Signs Temperature 97.1 F L 01/06/19 06:17 Pulse Rate 70 01/06/19 06:17 Respiratory Rate 18 01/06/19 06:17 Blood Pressure 133/73 01/06/19 06:17 O2 Sat by Pulse Oximetry (%) Pertinent Admission Physical Exam Findings: alcohol withdrawal sx Laboratory Last Values WBC 4.9 K/mm3 (4.0-10.0) 01/04/19 07:00 RBC 4.55 M/mm3 (4.00-5.60) 01/04/19 07:00 Hgb 14.3 GM/dL (11.7-16.9) 01/04/19 07:00 Hct 43.1 % (35.4-49) 01/04/19 07:00 MCV 94.6 fl (80-96) 01/04/19 07:00 MCH 31.4 pg (25.7-33.7) 01/04/19 07:00 MCHC 33.2 g/dl (32.0-35.9) 01/04/19 07:00 RDW 13.7 % (11.9-15.9) 01/04/19 07:00 Plt Count 248 K/MM3 (134-434) 01/04/19 07:00 MPV 7.8 fl (7.5-11.1) 01/04/19 07:00 Sodium 141 mmol/L (136-145) 01/04/19 07:00 Potassium 4.1 mmol/L (3.5-5.1) 01/04/19 07:00 Chloride 109 mmol/L (98-107) H 01/04/19 07:00 Carbon Dioxide 26 mmol/L (21-32) 01/04/19 07:00 Anion Gap 6 MMOL/L (8-16) L 01/04/19 07:00 BUN 10 mg/dL (7-18) 01/04/19 07:00 Creatinine 0.8 mg/dL (0.55-1.3) 01/04/19 07:00 Creat Clearance w eGFR > 60 (>60) 01/04/19 07:00 Random Glucose 69 mg/dL (74-106) L 01/04/19 07:00 Calcium 10.3 mg/dL (8.5-10.1) H 01/04/19 07:00 Total Bilirubin 0.3 mg/dL (0.2-1) 01/04/19 07:00 AST 10 U/L (15-37) L 01/04/19 07:00 ALT 20 U/L (13-61) 01/04/19 07:00 Alkaline Phosphatase 86 U/L (45-117) 01/04/19 07:00 Total Protein 6.4 g/dl (6.4-8.2) 01/04/19 07:00 Albumin 3.4 g/dl (3.4-5.0) 01/04/19 07:00 RPR Titer Nonreactive (NONREACTIVE) 01/04/19 07:00 lab noted - Treatment Hospital Course: Detox Protocol Followed, Detoxed Safely, Responded well, Discharged Condition Good, Rehab Referral Accepted Patient has Accepted a Rehab Referral to: [facility] - Medication Discharge Medications: Ambulatory Orders NK [No Known Home Medication] 01/03/19 - Diagnosis (1) Underweight Status: Acute (2) Alcohol dependence with uncomplicated withdrawal Status: Acute - AMA Did Patient Leave Against Medical Advice: No
[2019-01-06 09:16] VITALS: BP 125/76; PULSE 74; TEMP 96.2
[2019-01-06] MEDS: PRENATAL VITAMINS W/ FOLIC ACID TABLET (FP) PO SCH (10:44)
[2019-01-06] MEDS: SELENIUM SULFIDE 2.25% 180 ML SHAMPOO TP SCH (10:48)
[2019-01-06] MEDS ORDERED: chlordiazePOXIDE HCL 10 MG CAPSULE PO SCH (17:00)
== END 2019-01-06 12:32 | disposition other institution (70) | DRG 773 ==
LOC: YASAS 11:54 → Y3N 15:16
PROVIDERS: ADMIT Surgery; ATTEND Surgery
PROC: HZ2ZZZZ Detoxification Services for Substance Abuse Treatment (ICD-10-PCS; principal; 2019-01-03)
DX: F10.230 Alcohol dependence with withdrawal, uncomplicated (principal); F14.20 Cocaine dependence, uncomplicated; F12.20 Cannabis dependence, uncomplicated; F11.20 Opioid dependence, uncomplicated; R63.6 Underweight; Z68.22 Body mass index [BMI] 22.0-22.9, adult
CPT/HCPCS: 36415; 80053; 85027; 86593

== ENCOUNTER 2019-01-06 12:40 | Inpatient (IN) | payer OTHER ==
--- NOTE | 2019-01-06 14:25 | HP ---
[facility] Rehab Assess/Revision - Admission History Admitted to Rehab from: [facility] Date of Admission to Rehab: 01/06/19 - Vital signs Vital Signs: Vital Signs Period Temp Pulse Resp BP Sys/Boyce Pulse Ox Last 24 Hr 98 F 87 18 136/88 - Findings Detox History & Physical reviewed: Yes Concur with findings: Yes Comments/Additional Findings: transferred from detox to rehab admission as per protocol Inpatient Rehab Admission - Rehab Decision to Admit Inpatient rehab admission?: Yes - Initial Determination Are CD services needed?: Yes Free of communicable disease: Yes Not in need of hospitalization: Yes - Rehab Admission Criteria Previous failed treatment: Yes Poor recovery environment: Yes Comorbidities: Yes Lacks judgement: No Patient is meeting Inpatient Rehab admission criteria:: Yes
[2019-01-06] MEDS ORDERED: MAGNESIUM CITRATE 300 ML BOTTLE PO PRN ×2 (14:26→14:56)
[2019-01-06] MEDS ORDERED: NICOTINE 14 MG/24 HOURS TOPICAL PATCH TD PRN (14:26)
[2019-01-06] MEDS ORDERED: ACETAMINOPHEN 325 MG TABLET (FP) PO PRN ×2 (14:26→14:56)
[2019-01-06] MEDS ORDERED: LOPERAMIDE HCL 2 MG CAPSULE PO PRN ×2 (14:26→14:56)
[2019-01-06] MEDS ORDERED: P-EPHED 60MG/TRIPROLIDI 2.5MG TABLET PO PRN ×2 (14:26→14:56)
[2019-01-06] MEDS ORDERED: MAG HYDROX/AL HYDROX/SIMETH 30 ML UNIT-DOSE CUP PO PRN ×2 (14:26→14:56)
[2019-01-06] MEDS ORDERED: guaiFENesin/D-METHORPHAN HB 10 ML UNIT-DOSE CUPS PO PRN ×2 (14:26→14:56)
[2019-01-06] MEDS ORDERED: MAGNESIUM HYDROX 2400MG/30ML ORAL SUSPENSION 30 ML CUP PO PRN ×2 (14:26→14:56)
[2019-01-06] MEDS ORDERED: MENTHOL/PHENOL 1 EACH UD MM PRN ×2 (14:26→14:56)
[2019-01-06] MEDS ORDERED: IBUPROFEN 400 MG TABLET (FP) PO PRN (14:56)
[2019-01-06] MEDS ORDERED: FLU VACCINE QUAD 60 MCG/0.5 ML (MDV 18-19) IM ONE (15:15)
[2019-01-06] MEDS: THIAMINE HCL 100 MG TABLET (FP) PO SCH (21:04)
[2019-01-06] MEDS: MELATONIN 5 MG TABLETS PO PRN (21:04)
[2019-01-06] MEDS ORDERED: MELATONIN 5 MG TABLETS PO PRN (22:00)
[2019-01-06] MEDS ORDERED: THIAMINE HCL 100 MG TABLET (FP) PO SCH (22:00)
[2019-01-07] MEDS: IBUPROFEN 400 MG TABLET (FP) PO PRN ×2 (07:41→14:48)
[2019-01-07] MEDS ORDERED: PRENATAL VITAMINS W/ FOLIC ACID TABLET (FP) PO SCH (10:00)
[2019-01-07] MEDS: PRENATAL VITAMINS W/ FOLIC ACID TABLET (FP) PO SCH (10:43)
[2019-01-07] MEDS: THIAMINE HCL 100 MG TABLET (FP) PO SCH (21:56)
[2019-01-07] MEDS: MELATONIN 5 MG TABLETS PO PRN (21:56)
[2019-01-08] MEDS: PRENATAL VITAMINS W/ FOLIC ACID TABLET (FP) PO SCH (10:01)
[2019-01-08] MEDS: IBUPROFEN 400 MG TABLET (FP) PO PRN (10:02)
[2019-01-08] MEDS: THIAMINE HCL 100 MG TABLET (FP) PO SCH (21:35)
[2019-01-08] MEDS: MELATONIN 5 MG TABLETS PO PRN (21:35)
[2019-01-09 07:28] VITALS: BP 141/82; PULSE 69; TEMP 97.6
[2019-01-09] MEDS: PRENATAL VITAMINS W/ FOLIC ACID TABLET (FP) PO SCH (10:23)
--- NOTE | 2019-01-09 13:14 | PN ---
[facility] Progress Note Note: patient does not want to complete treatment,all convinces by counselor,myself and nurses with no avail,stated he has to go to work, risk of relapsing is high,patient understand,advise to go to nearest emergency room if any emergency problem, patient signed release against medical advice,,left the unit in stable condition ,no suicidal,no homicidal
--- NOTE | 2019-01-09 13:19 | DS ---
[facility] Detox Discharge Summary Admission Date: 01/06/19 Discharge Date: 01/09/19 - History Present History: Alcohol Dependence, Cannabis Dependence, Cocaine Dependence Additional Comments: patient did not want to complete treatment,signed release ama,left rehab unit in stable condition,high rsk for relapsing,patient under stood Pertinent Past History: weight loss - Physical Exam Results Vital Signs: Vital Signs Temperature 97.6 F 01/09/19 07:27 Pulse Rate 69 01/09/19 07:27 Respiratory Rate 18 01/09/19 07:27 Blood Pressure 141/82 01/09/19 07:27 O2 Sat by Pulse Oximetry (%) Pertinent Admission Physical Exam Findings: Vital Signs Temperature 97.6 F 01/09/19 07:27 Pulse Rate 69 01/09/19 07:27 Respiratory Rate 18 01/09/19 07:27 Blood Pressure 141/82 01/09/19 07:27 O2 Sat by Pulse Oximetry (%) - Medication Discharge Medications: Ambulatory Orders NK [No Known Home Medication] 01/03/19 - AMA Did Patient Leave Against Medical Advice: Yes
== END 2019-01-09 13:00 | disposition left against medical advice (07) | DRG 770 ==
LOC: YASAS 12:40 → Y3W 12:41
PROVIDERS: ADMIT Neuromusculoskeletal Medicine & OMM; ATTEND Neuromusculoskeletal Medicine & OMM
PROC: HZ42ZZZ Group Counseling for Substance Abuse Treatment, Cognitive-Behavioral (ICD-10-PCS; principal; 2019-01-06)
DX: F10.20 Alcohol dependence, uncomplicated (principal); F14.20 Cocaine dependence, uncomplicated; F12.20 Cannabis dependence, uncomplicated; R63.6 Underweight; Z68.22 Body mass index [BMI] 22.0-22.9, adult
CPT/HCPCS: 36415; 87522; 90688; G0008

== ENCOUNTER 2019-05-07 10:55 | Inpatient (IN) | payer OTHER ==
[2019-05-07 11:57] VITALS: BMI 21.1
--- NOTE | 2019-05-07 12:41 | HP ---
COWS - Scale Resting Pulse: 0= NE 80 or Below Sweatin= Chills/Flushing Restless Observation: 1= Difficult to Sit Still Pupil Size: 1= Pupils >than Normal Bone or Joint Aches: 2= Severe Diffuse Aches Runny Nose/ Eye Tearin= Runny Nose/Eyes GI Upset > 30mins: 2= Nausea/Diarrhea Tremor Observation: 2= Slight Tremor Visible Yawning Observation: 1= 1-2x During Session Anxiety or Irritability: 2=Irritable/Anxious Goose Flesh Skin: 3=Piloerection COWS Score: 17 CIWA Score Nausea/Vomitin Muscle Tremors: 2 Anxiety: 2 Agitation: 2 Paroxysmal Sweats: 2 Orientation: 0-Oriented Tacttile Disturbances: 2-Mild Itch/Numbness/Burn Auditory Disturbances: 0-None Visual Disturbances: 0-None Headache: 2-Mild CIWA-Ar Total Score: 14 - Admission Criteria OASAS Guidelines: Admission for Medically Managed Detox: Requires at least one of the followin. CIWA greater than 12 2. Seizures within the past 24 hours 3. Delirium tremens within the past 24 hours 4. Hallucinations within the past 24 hours 5. Acute intervention needed for co occurring medical disorder 6. Acute intervention needed for co occurring psychiatric disorder 7. Severe withdrawal that cannot be handled at a lower level of care (continued vomiting, continued diarrhea, abnormal vital signs) requiring intravenous medication and/or fluids 8. Patient presents the following: CIWA greater than 12 Admission Criteria Met: Admission criteria met Admission ROS [facility] Chief Complaint: I need detox Allergies/Adverse Reactions: Allergies Allergy/AdvReac Type Severity Reaction Status Date / Time No Known Allergies Allergy Verified 01/03/19 13:00 History of Present Illness: Patient is a 28 year old male who completed detox from [facility] in December of this year, denies any further treatments. Patient was previously in the [facility] methadone program but has since been discharged and has resumed using opiates. Exam Limitations: No Limitations - Ebola screening Have you traveled outside of the country in the last 21 days: No (N) Have you had contact with anyone from an Ebola affected area: No Have you been sick,other than usual withdrawal symptoms: No Do you have a fever: No - Review of Systems Constitutional: Chills, Loss of Appetite, Unexplained wgt Loss EENT: reports: Tearing, Nose Congestion Respiratory: reports: No Symptoms reported Cardiac: reports: No Symptoms Reported GI: reports: Diarrhea, Poor Appetite : reports: No Symptoms Reported Musculoskeletal: reports: Back Pain, Muscle Pain, Muscle Weakness Integumentary: reports: Flushing Neuro: reports: Headache, Tingling, Tremors Endocrine: reports: No Symptoms Reported Hematology: reports: No Symptoms Reported Psychiatric: reports: Anxious Other Systems: Reviewed and Negative Patient History - Patient Medical History Hx Anemia: No Hx Asthma: No Hx Chronic Obstructive Pulmonary Disease (COPD): No Hx Cancer: No Hx Cardiac Disorders: No Hx Congestive Heart Failure: No Hx Hypertension: No Hx Hypercholesterolemia: No Hx Pacemaker: No HX Cerebrovascular Accident: No Hx Seizures: No Hx Dementia: No Hx Diabetes: No Hx Gastrointestinal Disorders: No Hx Liver Disease: No Hx Genitourinary Disorders: No Hx Sexually Transmitted Disorders: No Hx Renal Disease (ESRD): No Hx Thyroid Disease: No Hx Human Immunodeficiency Virus (HIV): No Hx Hepatitis C: No Hx Depression: No Hx Suicide Attempt: No Hx Schizophrenia: No - Patient Surgical History Past Surgical History: Yes Hx Neurologic Surgery: No Hx Cataract Extraction: No Hx Cardiac Surgery: No Hx Lung Surgery: No Hx Breast Surgery: No Hx Breast Biopsy: No Hx Abdominal Surgery: No Hx Appendectomy: No Hx Cholecystectomy: No Hx Genitourinary Surgery: No Hx Orthopedic Surgery: No Other Surgical History: left inguinal hernia repair in 2016 Anesthesia Reaction: No - PPD History Previous Implant?: Yes Documented Results: Negative w/proof Implanted On Prior [facility] Admission?: Yes Date: 05/24/18 Results: 0 mm PPD to be Administered?: No - Smoking Cessation Smoking history: Former smoker Have you smoked in the past 12 months: No If you are a former smoker, when did you quit?: at age 22 Hx Chewing Tobacco Use: No Initiated information on smoking cessation: No - Substances abused Heroin Substance route: Injection Frequency: Daily Amount used: 4 bags/day Age of first use: 20 Date of last use: 05/07/19 Marijuana/Hashish Substance route: Smoking Frequency: Daily Amount used: 3 blunts/day Age of first use: 16 Date of last use: 05/07/19 Family Disease History - Family Disease History Family Disease History: Other: Father ( - etoh), Mother (living - healthy), Brother (four - living - healthy), Sister (two - living - healthy), Daughter (two - 8 and six ) Admission Physical Exam [facility] - Vital Signs Vital Signs: Vital Signs - 24 hr 05/07/19 11:45 Temperature 97.8 F Pulse Rate 67 Respiratory 18 Rate Blood Pressure 115/77 - Physical General Appearance: Yes: Mild Distress HEENTM: Yes: Normal ENT Inspection, Normocephalic, Normal Voice Respiratory: Yes: Chest Non-Tender, Lungs Clear, Normal Breath Sounds, No Respiratory Distress, No Accessory Muscle Use Neck: Yes: No masses,lesions,Nodules, Supple Breast: Yes: Breast Exam Deferred Cardiology: Yes: Regular Rhythm, Regular Rate, S1, S2 Abdominal: Yes: Normal Bowel Sounds, Non Tender, Flat Genitourinary: Yes: Within Normal Limits Back: Yes: Normal Inspection Extremities: Yes: Non-Tender, Tremors, Coldness 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 NML intact, Fully Oriented, Normal Mood/Affect, Normal Response Integumentary: Yes: Track Zamora (both arms) Lymphatic: Yes: Within Normal Limits - Diagnostic (1) Heroin dependence Current Visit: Yes Status: Acute (2) Alcohol dependence with uncomplicated withdrawal Current Visit: No Status: Acute (3) Cocaine dependence Current Visit: No Status: Acute Qualifiers: Substance use status: uncomplicated Qualified Code(s): F14.20 - Cocaine dependence, uncomplicated (4) Marijuana dependence Current Visit: No Status: Chronic Cleared for Admission [facility] - Detox or Rehab [facility] Level of Care: Medically Managed Detox Regimen/Protocol: Methadone/Librium Breathalyzer - Breathalyzer Breathalyzer: 0 Urine Drug Screen - Test Device Lot number: [id number] Expiration date: 01/06/21 - Control Is test valid?: Yes - Results Drug screen NEGATIVE: No Urine drug screen results: THC-Marijuana, CHAKA-Cocaine, MOP-Opiates Inpatient Rehab Admission - Rehab Decision to Admit Inpatient rehab admission?: No
[2019-05-07] MEDS ORDERED: MAGNESIUM HYDROX 2400MG/30ML ORAL SUSPENSION 30 ML CUP PO PRN (12:57)
[2019-05-07] MEDS ORDERED: ACETAMINOPHEN 325 MG TABLET (FP) PO PRN ×2 (12:57)
[2019-05-07] MEDS ORDERED: METHOCARBAMOL 500 MG TABLET PO PRN (12:57)
[2019-05-07] MEDS ORDERED: chlordiazePOXIDE HCL 25 MG CAPSULE PO ONE (12:57)
[2019-05-07] MEDS ORDERED: NALOXONE HCL 0.4 MG/ML VIAL IVPUSH PRN (12:57)
[2019-05-07] MEDS ORDERED: BISMUTH SUBSALICYLATE 524 MG/30 ML UD PO PRN (12:57)
[2019-05-07] MEDS ORDERED: MELATONIN 5 MG TABLETS PO PRN (12:57)
[2019-05-07] MEDS ORDERED: MAG HYDROX/AL HYDROX/SIMETH 30 ML UNIT-DOSE CUP PO PRN (12:57)
[2019-05-07] MEDS ORDERED: chlordiazePOXIDE HCL 10 MG CAPSULE PO PRN (12:57)
[2019-05-07] MEDS ORDERED: cloNIDine HCL 0.1 MG TABLET PO PRN (12:57)
[2019-05-07] MEDS ORDERED: METHADONE HCL 10 MG TABLET (FOR DETOX USE ONLY) PO ONE ×2 (12:57→23:00)
[2019-05-07] MEDS ORDERED: clonazePAM 0.5 MG TABLET PO PRN (12:57)
[2019-05-07] MEDS ORDERED: IBUPROFEN 400 MG TABLET (FP) PO PRN (12:57)
[2019-05-07] MEDS ORDERED: MAGNESIUM CITRATE 300 ML BOTTLE PO PRN (12:57)
[2019-05-07] MEDS ORDERED: MENTHOL/PHENOL 1 EACH UD MM PRN (12:57)
[2019-05-07] MEDS: chlordiazePOXIDE HCL 25 MG CAPSULE PO SCH (22:50)
[2019-05-07] MEDS: THIAMINE HCL 100 MG TABLET (FP) PO SCH (22:51)
[2019-05-08] MEDS: chlordiazePOXIDE HCL 25 MG CAPSULE PO SCH ×2 (06:15→13:46)
[2019-05-08 09:32] LABS: HEMATOCRIT 41.4 % (35.4-49); HEMOGLOBIN 13.6 GM/dL (11.7-16.9); MCH 30.7 pg (25.7-33.7); MCHC 32.7 g/dl (32.0-35.9); MEAN CELL VOLUME 93.6 fl (80-96); MEAN PLT VOLUME 8.6 fl (7.5-11.1); RBC 4.42 M/mm3 (4.00-5.60); RDW 12.8 % (11.9-15.9); WHITE BLOOD COUNT 3.7 K/mm3 (4.0-10.0)
[2019-05-08 09:40] LABS: ALBUMIN 3.1 g/dl (3.4-5.0); BILIRUBIN,TOTAL 0.5 mg/dL (0.2-1); BLOOD UREA NITROGEN 7.7 mg/dL (7-18); CREATININE 0.7 mg/dL (0.55-1.3); POTASSIUM 4.4 mmol/L (3.5-5.1); TOT PROT 6.3 g/dl (6.4-8.2)
[2019-05-08] MEDS ORDERED: METHADONE HCL 5 MG TABLET (FOR DETOX USE ONLY) PO ONE (10:00)
[2019-05-08 10:01] LABS: PLATELET COUNT 205 K/MM3 (134-434)
[2019-05-08] MEDS: PRENATAL VITAMINS W/ FOLIC ACID TABLET (FP) PO SCH (11:00)
--- NOTE | 2019-05-08 16:07 | PN ---
[facility] CIWA - CIWA Score Nausea/Vomitin-Mild Nausea/No Vomiting Muscle Tremors: 4-Moderate,w/Arms Extend Anxiety: 4-Mod. Anxious/Guarded Agitation: 3 Paroxysmal Sweats: 3 Orientation: 0-Oriented Tacttile Disturbances: 0-None Auditory Disturbances: 0-None Visual Disturbances: 0-None Headache: 0-None Present CIWA-Ar Total Score: 15 S COWS - Scale Resting Pulse: 0= [place] 80 or Below Sweatin= Chills/Flushing Restless Observation: 3= Extraneous Movement Pupil Size: 0= Normal to Room Light Bone or Joint Aches: 2= Severe Diffuse Aches Runny Nose/ Eye Tearin= Runny Nose/Eyes GI Upset > 30mins: 2= Nausea/Diarrhea Tremor Observation of Outstretched Hands: 2= Slight Tremor Visible Yawning Observation: 0= None Anxiety or Irritability: 2=Irritable/Anxious Goose Flesh Skin: 0=Smooth Skin COWS Score: 14 S Progress Note (SOAP) Subjective: Feels ok, symptoms controlled with medication. Request ensure. Objective: 05/08/19 16:05 Last Vital Signs Temp Pulse Resp BP Pulse Ox 97.7 F 61 18 131/74 05/08/19 14:25 05/08/19 14:25 05/08/19 14:25 05/08/19 14:25 Laboratory Tests 05/08/19 05/08/19 05/08/19 07:30 07:30 07:30 WBC 3.7 L RBC 4.42 Hgb 13.6 Hct 41.4 MCV 93.6 MCH 30.7 MCHC 32.7 RDW 12.8 Plt Count 205 MPV 8.6 D Sodium 142 Potassium 4.4 Chloride 110 H Carbon Dioxide 29 Anion Gap 3 L BUN 7.7 Creatinine 0.7 Est GFR (CKD-EPI)AfAm 148.85 Est GFR (CKD-EPI)NonAf 128.43 Random Glucose 83 Calcium 10.0 Total Bilirubin 0.5 AST 80 H ALT 311 H Alkaline Phosphatase 118 H Total Protein 6.3 L Albumin 3.1 L RPR Titer Nonreactive HIV 1&2 Antibody Screen HIV P24 Antigen 05/08/19 07:30 WBC RBC Hgb Hct MCV MCH MCHC RDW Plt Count MPV Sodium Potassium Chloride Carbon Dioxide Anion Gap BUN Creatinine Est GFR (CKD-EPI)AfAm Est GFR (CKD-EPI)NonAf Random Glucose Calcium Total Bilirubin AST ALT Alkaline Phosphatase Total Protein Albumin RPR Titer HIV 1&2 Antibody Screen Negative HIV P24 Antigen Negative Labs reviewed: LFTs elevated Assessment: 05/08/19 16:06 Withdrawal symptoms Noted with elevated LFTs Plan: Continue detox Encouraged PO water intake Elevated LFTs: could be r/t alcoholism, repeat hepatic panel
[2019-05-08 21:30] VITALS: TEMP 97.9
[2019-05-08] MEDS: THIAMINE HCL 100 MG TABLET (FP) PO SCH (23:50)
[2019-05-08] MEDS: chlordiazePOXIDE 5 MG CAPSULE PO SCH (23:50)
[2019-05-09] MEDS: chlordiazePOXIDE 5 MG CAPSULE PO SCH (05:55)
[2019-05-09 06:05] VITALS: BP 123/71; PULSE 53
[2019-05-09] MEDS ORDERED: METHADONE HCL 10 MG TABLET (FOR DETOX USE ONLY) PO ONE (10:00)
[2019-05-09] MEDS: PRENATAL VITAMINS W/ FOLIC ACID TABLET (FP) PO SCH (10:31)
--- NOTE | 2019-05-09 12:13 | PN ---
S Progress Note Note: pt admitted in withdrawals..pt c/o withdrawals s/s and aggressive symptoms management attempted however pt in spite of extensive motivational counseling regarding the risk of relapse, seizures, OD, loss, pt chose to sign out AMA.
--- NOTE | 2019-05-09 12:14 | DS ---
[facility] Detox Discharge Summary Admission Date: 05/07/19 - History Present History: Alcohol Dependence, Cannabis Dependence, Opioid Dependence - Physical Exam Results Vital Signs: Vital Signs Temperature 97.9 F 05/09/19 06:00 Pulse Rate 53 L 05/09/19 06:00 Respiratory Rate 18 05/09/19 06:00 Blood Pressure 123/71 05/09/19 06:00 O2 Sat by Pulse Oximetry (%) - Treatment Hospital Course: Discharged Condition Good - Medication Discharge Medications: Ambulatory Orders NK [No Known Home Medication] 01/03/19 - Diagnosis (1) Heroin dependence Current Visit: Yes Status: Chronic (2) Alcohol dependence with uncomplicated withdrawal Current Visit: Yes Status: Chronic (3) Cocaine dependence Current Visit: Yes Status: Chronic Qualifiers: Substance use status: uncomplicated Qualified Code(s): F14.20 - Cocaine dependence, uncomplicated (4) Underweight Current Visit: Yes Status: Acute (5) Marijuana dependence Current Visit: Yes Status: Chronic - AMA Did Patient Leave Against Medical Advice: Yes (going home; declined aftercare/ referral)
[2019-05-09] MEDS ORDERED: chlordiazePOXIDE HCL 10 MG CAPSULE PO SCH (21:00)
[2019-05-09] MEDS ORDERED: chlordiazePOXIDE HCL 10 MG CAPSULE PO PRN (21:00)
[2019-05-10] MEDS ORDERED: METHADONE HCL 5 MG TABLET (FOR DETOX USE ONLY) PO ONE (06:00)
== END 2019-05-09 12:09 | disposition left against medical advice (07) | DRG 770 ==
LOC: YASAS 10:55 → Y6N 12:58
PROVIDERS: ADMIT Surgery; ATTEND Surgery
PROC: HZ2ZZZZ Detoxification Services for Substance Abuse Treatment (ICD-10-PCS; principal; 2019-05-07)
DX: F11.23 Opioid dependence with withdrawal (principal); F10.230 Alcohol dependence with withdrawal, uncomplicated; F14.20 Cocaine dependence, uncomplicated; F12.20 Cannabis dependence, uncomplicated; R63.6 Underweight; Z68.21 Body mass index [BMI] 21.0-21.9, adult; Z87.891 Personal history of nicotine dependence
CPT/HCPCS: 36415; 80053; 85027; 86593; 87389

== ENCOUNTER 2019-05-26 09:12 | Inpatient (IN) | payer OTHER ==
[2019-05-26 11:21] VITALS: BMI 20.9
--- NOTE | 2019-05-26 14:31 | HP ---
COWS - Scale Resting Pulse: 0= [place] 80 or Below Sweatin= Chills/Flushing Restless Observation: 1= Difficult to Sit Still Pupil Size: 2= Moderately Dilated Bone or Joint Aches: 2= Severe Diffuse Aches Runny Nose/ Eye Tearin= Nasal Congestion GI Upset > 30mins: 2= Nausea/Diarrhea Tremor Observation: 2= Slight Tremor Visible Yawning Observation: 0= None Anxiety or Irritability: 2=Irritable/Anxious Goose Flesh Skin: 0=Smooth Skin COWS Score: 13 CIWA Score Nausea/Vomitin Muscle Tremors: 3 Anxiety: 1-Mildly Anxious Agitation: 2 Paroxysmal Sweats: 2 Orientation: 0-Oriented Tacttile Disturbances: 0-None Auditory Disturbances: 0-None Visual Disturbances: 0-None Headache: 2-Mild CIWA-Ar Total Score: 12 - Admission Criteria OASAS Guidelines: Admission for Medically Managed Detox: Requires at least one of the followin. CIWA greater than 12 2. Seizures within the past 24 hours 3. Delirium tremens within the past 24 hours 4. Hallucinations within the past 24 hours 5. Acute intervention needed for co occurring medical disorder 6. Acute intervention needed for co occurring psychiatric disorder 7. Severe withdrawal that cannot be handled at a lower level of care (continued vomiting, continued diarrhea, abnormal vital signs) requiring intravenous medication and/or fluids 8. Patient presents the following: CIWA greater than 12 Admission Criteria Met: Admission criteria met Admission ROS [facility] - [facility] Chief Complaint: I NEED TO STOP EVERYHITNG Allergies/Adverse Reactions: Allergies Allergy/AdvReac Type Severity Reaction Status Date / Time No Known Allergies Allergy Verified 05/26/19 11:12 History of Present Illness: 24 YO BEGAN USING HEROIN, INITIALLY INHALATION THEN INJECTION CURRENTLY USING 4 BAGS DAILY, MAX 7-10 BAGS 18 YO BEGAN SMOKING CANNABIS DENIES PRIOR SUBSTANCE USE - Ebola screening Have you traveled outside of the country in the last 21 days: No Have you had contact with anyone from an Ebola affected area: No Do you have a fever: No - Review of Systems Constitutional: Malaise, Unintentional Wgt. Loss EENT: reports: Tearing Respiratory: reports: No Symptoms reported Cardiac: reports: No Symptoms Reported GI: reports: Nausea, Abdominal cramping : reports: Other Musculoskeletal: reports: Joint Pain, Muscle Pain Integumentary: reports: Other (TRACTS) Neuro: reports: No Symptoms reported Endocrine: reports: No Symptoms Reported Hematology: reports: No Symptoms Reported Psychiatric: reports: No Sypmtoms Reported, Judgement Intact, Mood/Affect Appropiate Patient History - Patient Medical History Hx Anemia: No Hx Asthma: No Hx Chronic Obstructive Pulmonary Disease (COPD): No Hx Cancer: No Hx Cardiac Disorders: No Hx Congestive Heart Failure: No Hx Hypertension: No Hx Hypercholesterolemia: No Hx Pacemaker: No HX Cerebrovascular Accident: No Hx Seizures: No Hx Dementia: No Hx Diabetes: No Hx Gastrointestinal Disorders: No Hx Liver Disease: No Hx Genitourinary Disorders: No Hx Sexually Transmitted Disorders: No Hx Renal Disease (ESRD): No Hx Thyroid Disease: No Hx Human Immunodeficiency Virus (HIV): No Hx Hepatitis C: No Hx Depression: No Hx Suicide Attempt: No Hx Schizophrenia: No - Patient Surgical History Past Surgical History: Yes Hx Neurologic Surgery: No Hx Cataract Extraction: No Hx Cardiac Surgery: No Hx Lung Surgery: No Hx Breast Surgery: No Hx Breast Biopsy: No Hx Abdominal Surgery: No Hx Appendectomy: No Hx Cholecystectomy: No Hx Genitourinary Surgery: No Hx Section: No Hx Orthopedic Surgery: No Other Surgical History: left inguinal hernia repair in 2016 Anesthesia Reaction: No - PPD History Date: 05/24/18 Results: 0 mm - Smoking Cessation Smoking history: Former smoker Have you smoked in the past 12 months: No If you are a former smoker, when did you quit?: at age 22 Hx Chewing Tobacco Use: No Initiated information on smoking cessation: No 'Breaking Loose' booklet given: 05/26/19 - Substances abused Heroin Substance route: Injection Frequency: Daily Amount used: 4 bags Age of first use: 24 Date of last use: 05/25/19 Marijuana/Hashish Substance route: Smoking Frequency: Daily Amount used: 3 blunts/day Age of first use: 21 Date of last use: 05/25/19 Alcohol Substance route: Oral Frequency: Daily Amount used: 16OZ beer (5 cans) Age of first use: 18 Date of last use: 05/24/19 Cocaine Substance route: Injection Frequency: Daily Amount used: 4 bags Age of first use: 24 Date of last use: 05/25/19 Family Disease History - Family Disease History Family Disease History: Other: Father ( - etoh), Mother (living - healthy), Brother (four - living - healthy), Sister (two - living - healthy), Daughter (two - 8 and six ) Admission Physical Exam [facility] - Vital Signs Vital Signs: Vital Signs - 24 hr 05/26/19 05/26/19 11:13 12:15 Temperature 97.1 F L 97.1 F L Pulse Rate 68 68 Respiratory 16 16 Rate Blood Pressure 132/59 L 132/59 L - Physical General Appearance: Yes: Disheveled, Irritable, Anxious HEENTM: Yes: EOMI, Nasal Congestion, Rhinorrhea Respiratory: Yes: Chest Non-Tender, Lungs Clear, Normal Breath Sounds Neck: Yes: Within Normal Limits Breast: Yes: Breast Exam Deferred Cardiology: Yes: Within Normal Limits, Regular Rhythm, Regular Rate, S1, S2 Abdominal: Yes: Normal Bowel Sounds, Non Tender Back: Yes: Normal Inspection Musculoskeletal: Yes: Within Normal Limits, full range of Motion Extremities: Yes: Within Normal Limits, Normal Capillary Refill, Normal Inspection Neurological: Yes: Within Normal Limits, leather tooler II-XII NML intact, Fully Oriented Integumentary: Yes: Track Zamora Lymphatic: Yes: Within Normal Limits - Diagnostic (1) Alcohol dependence with uncomplicated withdrawal Current Visit: Yes Status: Chronic (2) Heroin dependence Current Visit: Yes Status: Chronic Cleared for Admission [facility] - Detox or Rehab [facility] Level of Care: Medically Supervised Breathalyzer - Breathalyzer Breathalyzer: 0 Urine Drug Screen - Test Device Lot number: [id number] Expiration date: 03/08/21 - Control Is test valid?: Yes - Results Drug screen NEGATIVE: No Urine drug screen results: THC-Marijuana, CHAKA-Cocaine, MOP-Opiates, MTD- Methadone Inpatient Rehab Admission - Rehab Decision to Admit Inpatient rehab admission?: No
[2019-05-26] MEDS ORDERED: cloNIDine HCL 0.1 MG TABLET PO PRN (14:50)
[2019-05-26] MEDS ORDERED: MAGNESIUM HYDROX 2400MG/30ML ORAL SUSPENSION 30 ML CUP PO PRN (14:50)
[2019-05-26] MEDS ORDERED: MENTHOL/PHENOL 1 EACH UD MM PRN (14:50)
[2019-05-26] MEDS ORDERED: METHOCARBAMOL 500 MG TABLET PO PRN (14:50)
[2019-05-26] MEDS ORDERED: MAGNESIUM CITRATE 300 ML BOTTLE PO PRN (14:50)
[2019-05-26] MEDS ORDERED: hydrOXYzine HCL 25 MG TABLET (FP) PO PRN (14:50)
[2019-05-26] MEDS ORDERED: MAG HYDROX/AL HYDROX/SIMETH 30 ML UNIT-DOSE CUP PO PRN (14:50)
[2019-05-26] MEDS ORDERED: ACETAMINOPHEN 325 MG TABLET (FP) PO PRN ×2 (14:50)
[2019-05-26] MEDS ORDERED: BISMUTH SUBSALICYLATE 262 MG/15 ML BTL PO PRN (14:50)
[2019-05-26] MEDS ORDERED: METHADONE HCL 10 MG TABLET (FOR DETOX USE ONLY) PO ONE (15:30)
[2019-05-26] MEDS: IBUPROFEN 400 MG TABLET (FP) PO PRN (22:27)
[2019-05-26] MEDS: MELATONIN 5 MG TABLETS PO PRN (22:27)
[2019-05-26] MEDS: THIAMINE HCL 100 MG TABLET (FP) PO SCH (22:27)
[2019-05-26] MEDS: chlordiazePOXIDE HCL 25 MG CAPSULE PO SCH (22:27)
[2019-05-27] MEDS: chlordiazePOXIDE HCL 25 MG CAPSULE PO SCH ×3 (05:51→22:25)
[2019-05-27] MEDS ORDERED: METHADONE HCL 5 MG TABLET (FOR DETOX USE ONLY) PO ONE (10:00)
[2019-05-27] MEDS: PRENATAL VITAMINS W/ FOLIC ACID TABLET (FP) PO SCH (10:16)
[2019-05-27] MEDS: chlordiazePOXIDE HCL 10 MG CAPSULE PO PRN ×2 (10:21→18:18)
[2019-05-27] MEDS: IBUPROFEN 400 MG TABLET (FP) PO PRN (10:21)
--- NOTE | 2019-05-27 11:38 | PN ---
[facility] CIWA - CIWA Score Nausea/Vomitin-No Nausea/No Vomiting Muscle Tremors: 3 Anxiety: 2 Agitation: 3 Paroxysmal Sweats: 2 Orientation: 0-Oriented Tacttile Disturbances: 0-None Auditory Disturbances: 0-None Visual Disturbances: 0-None Headache: 0-None Present CIWA-Ar Total Score: 10 S COWS - Scale Resting Pulse: 0= [place] 80 or Below Sweatin=Flushed/Facial Moisture Restless Observation: 1= Difficult to Sit Still Pupil Size: 0= Normal to Room Light Bone or Joint Aches: 2= Severe Diffuse Aches Runny Nose/ Eye Tearin= Nasal Congestion GI Upset > 30mins: 1= Stomach Cramp Tremor Observation of Outstretched Hands: 1= Tremor [place], Not Seen Yawning Observation: 1= 1-2x During Session Anxiety or Irritability: 2=Irritable/Anxious Goose Flesh Skin: 0=Smooth Skin COWS Score: 11 [facility] Progress Note (SOAP) Subjective: body aches sweats shakes interrupted sleep irritable nasal congestion Objective: 05/27/19 11:36 Vital Signs Temperature 98.1 F 05/27/19 09:10 Pulse Rate 64 05/27/19 09:10 Respiratory Rate 18 05/27/19 09:10 Blood Pressure 135/63 05/27/19 09:10 O2 Sat by Pulse Oximetry (%) labs pending aaox3 ambulating no acute distress Assessment: 05/27/19 11:39 withdrawal sx Plan: continue detox increase fluids pending labs
[2019-05-27 12:16] LABS: HEMATOCRIT 40.2 % (35.4-49); HEMOGLOBIN 13.3 GM/dL (11.7-16.9); MCH 30.8 pg (25.7-33.7); MCHC 33.2 g/dl (32.0-35.9); MEAN CELL VOLUME 92.7 fl (80-96); MEAN PLT VOLUME 8.1 fl (7.5-11.1); PLATELET COUNT 231 K/MM3 (134-434); RBC 4.34 M/mm3 (4.00-5.60); WHITE BLOOD COUNT 3.9 K/mm3 (4.0-10.0)
[2019-05-27 12:25] LABS: ALBUMIN 3.2 g/dl (3.4-5.0); BILIRUBIN,TOTAL 0.5 mg/dL (0.2-1); CALCIUM 10.4 mg/dL (8.5-10.1); CREATININE 0.8 mg/dL (0.55-1.3); POTASSIUM 4.7 mmol/L (3.5-5.1); TOT PROT 6.3 g/dl (6.4-8.2)
[2019-05-27] MEDS: THIAMINE HCL 100 MG TABLET (FP) PO SCH (22:25)
[2019-05-27] MEDS: MELATONIN 5 MG TABLETS PO PRN (22:27)
[2019-05-28] MEDS: chlordiazePOXIDE 5 MG CAPSULE PO SCH ×3 (06:22→22:39)
[2019-05-28] MEDS ORDERED: METHADONE HCL 10 MG TABLET (FOR DETOX USE ONLY) PO ONE (10:00)
[2019-05-28] MEDS: PRENATAL VITAMINS W/ FOLIC ACID TABLET (FP) PO SCH (10:18)
--- NOTE | 2019-05-28 10:31 | PN ---
[facility] CIWA - CIWA Score Nausea/Vomitin-No Nausea/No Vomiting Muscle Tremors: None Anxiety: 2 Agitation: 2 Paroxysmal Sweats: 3 Orientation: 0-Oriented Tacttile Disturbances: 0-None Auditory Disturbances: 0-None Visual Disturbances: 0-None Headache: 2-Mild CIWA-Ar Total Score: 9 S COWS - Scale Resting Pulse: 0= [place] 80 or Below Sweatin= Beads of Sweat on Face Restless Observation: 1= Difficult to Sit Still Pupil Size: 0= Normal to Room Light Bone or Joint Aches: 0= None Runny Nose/ Eye Tearin= None GI Upset > 30mins: 0= None Tremor Observation of Outstretched Hands: 2= Slight Tremor Visible Yawning Observation: 1= 1-2x During Session Anxiety or Irritability: 2=Irritable/Anxious Goose Flesh Skin: 0=Smooth Skin COWS Score: 9 [facility] Progress Note (SOAP) Subjective: c/o anxiety/irritability, sweats, and shakes. Objective: 05/28/19 10:30 Vital Signs 05/28/19 05/28/19 05/28/19 03:30 07:36 09:48 Temperature 97.9 F 97.7 F Pulse Rate 65 63 Respiratory 18 18 18 Rate Blood Pressure 129/60 134/77 Lab Results WBC 3.9 K/mm3 (4.0-10.0) L 05/27/19 07:00 RBC 4.34 M/mm3 (4.00-5.60) 05/27/19 07:00 Hgb 13.3 GM/dL (11.7-16.9) 05/27/19 07:00 Hct 40.2 % (35.4-49) 05/27/19 07:00 MCV 92.7 fl (80-96) 05/27/19 07:00 MCHC 33.2 g/dl (32.0-35.9) 05/27/19 07:00 RDW 13.0 % (11.9-15.9) 05/27/19 07:00 Plt Count 231 K/MM3 (134-434) 05/27/19 07:00 Sodium 141 mmol/L (136-145) 05/27/19 07:00 Potassium 4.7 mmol/L (3.5-5.1) 05/27/19 07:00 Chloride 107 mmol/L (98-107) 05/27/19 07:00 Carbon Dioxide 31 mmol/L (21-32) 05/27/19 07:00 Anion Gap 2 MMOL/L (8-16) L 05/27/19 07:00 BUN 14.0 mg/dL (7-18) 05/27/19 07:00 Creatinine 0.8 mg/dL (0.55-1.3) 05/27/19 07:00 Random Glucose 56 mg/dL (74-106) L 05/27/19 07:00 Calcium 10.4 mg/dL (8.5-10.1) H 05/27/19 07:00 Labs noted. Assessment: 05/28/19 10:30 AOX3, in no acute distress. Full ROM, ambulating in the unit. withdrawal symptoms. Plan: continue detox.
[2019-05-28] MEDS: chlordiazePOXIDE HCL 10 MG CAPSULE PO PRN (18:02)
[2019-05-28] MEDS: MELATONIN 5 MG TABLETS PO PRN (22:39)
[2019-05-28] MEDS: THIAMINE HCL 100 MG TABLET (FP) PO SCH (22:39)
[2019-05-28] MEDS: IBUPROFEN 400 MG TABLET (FP) PO PRN (22:42)
[2019-05-29] MEDS ORDERED: chlordiazePOXIDE HCL 10 MG CAPSULE PO PRN
[2019-05-29] MEDS ORDERED: METHADONE HCL 5 MG TABLET (FOR DETOX USE ONLY) PO ONE (06:00)
[2019-05-29] MEDS: chlordiazePOXIDE HCL 10 MG CAPSULE PO SCH ×3 (06:38→22:16)
[2019-05-29] MEDS: PRENATAL VITAMINS W/ FOLIC ACID TABLET (FP) PO SCH (10:09)
--- NOTE | 2019-05-29 11:53 | PN ---
[facility] COWS - Scale Resting Pulse: 0= [place] 80 or Below Sweatin= Chills/Flushing Restless Observation: 1= Difficult to Sit Still Pupil Size: 1= Pupils >than Normal Bone or Joint Aches: 0= None Runny Nose/ Eye Tearin= None GI Upset > 30mins: 0= None Tremor Observation of Outstretched Hands: 0= None Yawning Observation: 0= None Anxiety or Irritability: 2=Irritable/Anxious Goose Flesh Skin: 0=Smooth Skin COWS Score: 5 [facility] Progress Note (SOAP) Subjective: PATIENT C/O MILD BODY ACHES, FEELING TIRED, ANXIETY AND RESTLESSNESS. Objective: 05/29/19 11:50 Vital Signs Temperature 97.9 F 05/29/19 09:17 Pulse Rate 70 05/29/19 09:17 Respiratory Rate 16 05/29/19 09:17 Blood Pressure 132/87 05/29/19 09:17 O2 Sat by Pulse Oximetry (%) Laboratory Tests 05/27/19 05/27/19 05/27/19 07:00 07:00 07:00 WBC 3.9 L RBC 4.34 Hgb 13.3 Hct 40.2 MCV 92.7 MCH 30.8 MCHC 33.2 RDW 13.0 Plt Count 231 MPV 8.1 Sodium 141 Potassium 4.7 Chloride 107 Carbon Dioxide 31 Anion Gap 2 L BUN 14.0 Creatinine 0.8 Est GFR (CKD-EPI)AfAm 140.90 Est GFR (CKD-EPI)NonAf 121.57 Random Glucose 56 L Calcium 10.4 H Total Bilirubin 0.5 AST 44 H ALT 116 H Alkaline Phosphatase 102 Total Protein 6.3 L Albumin 3.2 L RPR Titer Nonreactive PE: ALERT AND ORIENTED X 3 SKIN WARM AND DRY +PERRLA EOMS INTACT BL EXT NO VISIBLE EDEMA, FULL ROM AMB AD SETH Assessment: 05/29/19 11:51 WITHDRAWAL SX IMPROVED SYMPTOMS Plan: ENCOURAGE ORAL FLUIDS CONTINUE DETOX FOR D/C IN AM REFERRED TO COUNSELOR TO DISCUSS POSSIBLE TRANSFER TO INPATIENT REHAB
[2019-05-29] MEDS: THIAMINE HCL 100 MG TABLET (FP) PO SCH (22:16)
[2019-05-29] MEDS: MELATONIN 5 MG TABLETS PO PRN (22:16)
[2019-05-29] MEDS: IBUPROFEN 400 MG TABLET (FP) PO PRN (22:17)
[2019-05-30] MEDS ORDERED: chlordiazePOXIDE HCL 10 MG CAPSULE PO ONE (05:00)
[2019-05-30 09:12] VITALS: BP 129/54; PULSE 88; TEMP 98.2
--- NOTE | 2019-05-30 09:22 | DS ---
[facility] Detox Discharge Summary Admission Date: 05/26/19 Discharge Date: 05/30/19 - History Present History: Alcohol Dependence, Cannabis Dependence, Cocaine Dependence, Opioid Dependence - Physical Exam Results Vital Signs: Vital Signs Temperature 98.2 F 05/30/19 09:11 Pulse Rate 88 05/30/19 09:11 Respiratory Rate 18 05/30/19 09:11 Blood Pressure 129/54 L 05/30/19 09:11 O2 Sat by Pulse Oximetry (%) Pertinent Admission Physical Exam Findings: pt admitted in withdrawal Laboratory Tests 05/27/19 05/27/19 05/27/19 07:00 07:00 07:00 WBC 3.9 L RBC 4.34 Hgb 13.3 Hct 40.2 MCV 92.7 MCH 30.8 MCHC 33.2 RDW 13.0 Plt Count 231 MPV 8.1 Sodium 141 Potassium 4.7 Chloride 107 Carbon Dioxide 31 Anion Gap 2 L BUN 14.0 Creatinine 0.8 Est GFR (CKD-EPI)AfAm 140.90 Est GFR (CKD-EPI)NonAf 121.57 Random Glucose 56 L Calcium 10.4 H Total Bilirubin 0.5 AST 44 H ALT 116 H Alkaline Phosphatase 102 Total Protein 6.3 L Albumin 3.2 L RPR Titer Nonreactive today pt is aaox3 ambulating no acute distress no s/s of withdrawals - Treatment Hospital Course: Detox Protocol Followed, Detoxed Safely, Responded well, Discharged Condition Good, Rehab Referral Accepted - Medication Discharge Medications: Ambulatory Orders NK [No Known Home Medication] 01/03/19 - Diagnosis (1) Alcohol dependence with uncomplicated withdrawal Current Visit: Yes Status: Chronic (2) Heroin dependence Current Visit: Yes Status: Chronic (3) Underweight Current Visit: No Status: Acute (4) Cocaine dependence Current Visit: Yes Status: Chronic Qualifiers: Substance use status: uncomplicated Qualified Code(s): F14.20 - Cocaine dependence, uncomplicated (5) Marijuana dependence Current Visit: Yes Status: Chronic - AMA Did Patient Leave Against Medical Advice: No (pt declined rehab; going home. )
[2019-05-30] MEDS: PRENATAL VITAMINS W/ FOLIC ACID TABLET (FP) PO SCH (11:00)
== END 2019-05-30 12:20 | disposition home or self-care (01) | DRG 773 ==
LOC: YASAS 09:12 → Y6N 15:21
PROVIDERS: ADMIT Surgery; ATTEND Surgery
PROC: HZ2ZZZZ Detoxification Services for Substance Abuse Treatment (ICD-10-PCS; principal; 2019-05-26)
DX: F11.23 Opioid dependence with withdrawal (principal); F10.230 Alcohol dependence with withdrawal, uncomplicated; F14.20 Cocaine dependence, uncomplicated; F12.20 Cannabis dependence, uncomplicated; R63.6 Underweight; Z68.21 Body mass index [BMI] 21.0-21.9, adult; Z87.891 Personal history of nicotine dependence
CPT/HCPCS: 36415; 80053; 85027; 86593

== ENCOUNTER 2019-09-09 10:01 | Inpatient (IN) | payer OTHER ==
[2019-09-09 10:35] VITALS: BMI 23.9
--- NOTE | 2019-09-09 10:57 | HP ---
COWS - Scale Resting Pulse: 0= [place] 80 or Below Sweatin= Chills/Flushing Restless Observation: 1= Difficult to Sit Still Pupil Size: 1= Pupils >than Normal Bone or Joint Aches: 2= Severe Diffuse Aches Runny Nose/ Eye Tearin= Nasal Congestion GI Upset > 30mins: 2= Nausea/Diarrhea Tremor Observation: 2= Slight Tremor Visible Yawning Observation: 1= 1-2x During Session Anxiety or Irritability: 2=Irritable/Anxious Goose Flesh Skin: 0=Smooth Skin COWS Score: 13 CIWA Score Nausea/Vomitin Muscle Tremors: 2 Anxiety: 3 Agitation: 3 Paroxysmal Sweats: 1-Minimal [place] Moist Orientation: 0-Oriented Tacttile Disturbances: 1-Very Mild Itch/Numbness Auditory Disturbances: 0-None Visual Disturbances: 0-None Headache: 2-Mild CIWA-Ar Total Score: 14 - Admission Criteria OASAS Guidelines: Admission for Medically Managed Detox: Requires at least one of the followin. CIWA greater than 12 2. Seizures within the past 24 hours 3. Delirium tremens within the past 24 hours 4. Hallucinations within the past 24 hours 5. Acute intervention needed for co occurring medical disorder 6. Acute intervention needed for co occurring psychiatric disorder 7. Severe withdrawal that cannot be handled at a lower level of care (continued vomiting, continued diarrhea, abnormal vital signs) requiring intravenous medication and/or fluids 8. Admitting History and Physical - Smoking History Smoking history: Former smoker Have you smoked in the past 12 months: No If you are a former smoker, when did you quit?: at age 22 - Alcohol/Substance Use Hx Alcohol Use: Yes Admission ROS [facility] - [facility] Chief Complaint: i need help to stop using heroin,alcohol,cocaine Allergies/Adverse Reactions: Allergies Allergy/AdvReac Type Severity Reaction Status Date / Time No Known Allergies Allergy Verified 09/09/19 10:28 History of Present Illness: this 29 years old male with heroin,cocaine,alcohol dependence seeking detox, withdrawal symptom,multiple admissions in the past ,last detox to keep relapsing unemployed weight loss plan fo rehab after detox no significant period of sobriety seen in [facility] last night - Ebola screening Have you traveled outside of the country in the last 21 days: No Have you had contact with anyone from an Ebola affected area: No Do you have a fever: No - Review of Systems Constitutional: Chills, Loss of Appetite, Malaise, Night Sweats, Changes in sleep, Weakness, Unintentional Wgt. Loss EENT: reports: Tearing, Nose Congestion Respiratory: reports: No Symptoms reported Cardiac: reports: No Symptoms Reported GI: reports: Diarrhea, Nausea, Poor Appetite, Abdominal cramping : reports: No Symptoms Reported Integumentary: reports: Dryness Neuro: reports: Headache, Tremors Endocrine: reports: No Symptoms Reported Hematology: reports: No Symptoms Reported Psychiatric: reports: No Sypmtoms Reported, Judgement Intact, Mood/Affect Appropiate, Orientated x3 Other Systems: Reviewed and Negative Patient History - Patient Medical History Hx Anemia: No Hx Asthma: No Hx Chronic Obstructive Pulmonary Disease (COPD): No Hx Cancer: No Hx Cardiac Disorders: No Hx Congestive Heart Failure: No Hx Hypertension: No Hx Hypercholesterolemia: No Hx Pacemaker: No HX Cerebrovascular Accident: No Hx Seizures: No Hx Dementia: No Hx Diabetes: No Hx Gastrointestinal Disorders: No Hx Liver Disease: No Hx Genitourinary Disorders: No Hx Sexually Transmitted Disorders: No Hx Renal Disease (ESRD): No Hx Thyroid Disease: No Hx Human Immunodeficiency Virus (HIV): No (last 07/28 ntative) Hx Hepatitis C: No Hx Depression: Yes Hx Suicide Attempt: No Hx Schizophrenia: No Other Medical History: no suicidal,no homicidal - Patient Surgical History Past Surgical History: Yes Hx Neurologic Surgery: No Hx Cataract Extraction: No Hx Cardiac Surgery: No Hx Lung Surgery: No Hx Breast Surgery: No Hx Breast Biopsy: No Hx Abdominal Surgery: No Hx Appendectomy: No Hx Cholecystectomy: No Hx Genitourinary Surgery: No Hx Section: No Hx Orthopedic Surgery: No Other Surgical History: left inguinal hernia repair in 2016 Anesthesia Reaction: No - PPD History Previous Implant?: Yes Implanted On Prior R Admission?: Yes Date: 05/24/18 Results: 0 mm PPD to be Administered?: No - Smoking Cessation Smoking history: Former smoker Have you smoked in the past 12 months: No If you are a former smoker, when did you quit?: at age 22 Hx Chewing Tobacco Use: No Initiated information on smoking cessation: Yes 'Breaking Loose' booklet given: 09/09/19 - Substance & Tx. History Hx Alcohol Use: Yes Hx Substance Use: Yes Substance Use Type: Alcohol, Cocaine, Heroin, Marijuana Hx Substance Use Treatment: Yes (last [facility] 05/26/19 to 05/10/19) - Substances abused Heroin Substance route: Injection Frequency: Daily Amount used: 3 bags Age of first use: 24 Date of last use: 09/08/19 Marijuana/Hashish Substance route: Smoking Frequency: Daily Amount used: 3 blunts/day Age of first use: 21 Date of last use: 05/25/19 Alcohol Substance route: Oral Frequency: Daily Amount used: 16OZ beer (8 -10) cans Age of first use: 18 Date of last use: 09/08/19 Cocaine Substance route: Injection Frequency: Daily Amount used: 3 bags Age of first use: 24 Date of last use: 09/08/19 Admission Physical Exam [facility] - Vital Signs Vital Signs: Vital Signs - 24 hr 09/09/19 09/09/19 10:28 10:44 Temperature 97.8 F 97.8 F Pulse Rate 77 77 Respiratory 16 16 Rate Blood Pressure 128/56 L 128/56 L - Physical General Appearance: Yes: Moderate Distress, Tremorous, Irritable, Sweating, Anxious HEENTM: Yes: Normocephalic, EARLINE, Pharynx Normal, Other (abrasion of aldo from scratch) Respiratory: Yes: Lungs Clear, Normal Breath Sounds, No Respiratory Distress Neck: Yes: Within Normal Limits, Supple, Trachea in good position Breast: Yes: Within Normal Limits Cardiology: Yes: Within Normal Limits, Regular Rhythm, Regular Rate, S1, S2 Abdominal: Yes: Normal Bowel Sounds, Non Tender, Flat, Soft, Organomegaly Genitourinary: Yes: Within Normal Limits Back: Yes: Muscle Spasm Musculoskeletal: Yes: full range of Motion, Back pain, Muscle Pain Neurological: Yes: emissions engineer II-XII NML intact, Fully Oriented, Alert, Motor Strength 5/5 Integumentary: Yes: Dry, Track [place] Lymphatic: Yes: Within Normal Limits - Diagnostic (1) Opioid dependence with withdrawal Current Visit: Yes Status: Acute (2) Alcohol dependence with uncomplicated withdrawal Current Visit: No Status: Chronic (3) Weight loss Current Visit: Yes Status: Acute (4) IVDU (intravenous drug user) Current Visit: Yes Status: Acute (5) Abrasion of nose Current Visit: Yes Status: Acute Cleared for Admission S - Detox or Rehab [facility] Level of Care: Medically Managed Detox Regimen/Protocol: Methadone/Librium Breathalyzer - Breathalyzer Breathalyzer: 0 Urine Drug Screen - Test Device Lot number: [id number] Expiration date: 05/08/21 - Control Is test valid?: Yes - Results Drug screen NEGATIVE: No Urine drug screen results: CHAKA-Cocaine, FEN-Fentanyl, MOP-Opiates, OXY-Oxycodone , BUP-Suboxone Inpatient Rehab Admission - Rehab Decision to Admit Inpatient rehab admission?: No
[2019-09-09] MEDS ORDERED: chlordiazePOXIDE HCL 25 MG CAPSULE PO PRN (11:08)
[2019-09-09] MEDS ORDERED: ACETAMINOPHEN 325 MG TABLET (FP) PO PRN ×2 (11:08)
[2019-09-09] MEDS ORDERED: MAGNESIUM CITRATE 300 ML BOTTLE PO PRN (11:08)
[2019-09-09] MEDS ORDERED: hydrOXYzine PAMOATE 25 MG CAPSULE (FP) PO PRN (11:08)
[2019-09-09] MEDS ORDERED: MAGNESIUM HYDROX 2400MG/30ML ORAL SUSPENSION 30 ML CUP PO PRN (11:08)
[2019-09-09] MEDS ORDERED: cloNIDine HCL 0.1 MG TABLET PO PRN (11:08)
[2019-09-09] MEDS ORDERED: BISMUTH SUBSALICYLATE 262 MG/15 ML BTL PO PRN (11:08)
[2019-09-09] MEDS ORDERED: MENTHOL/PHENOL 1 EACH UD MM PRN (11:08)
[2019-09-09] MEDS ORDERED: MAG HYDROX/AL HYDROX/SIMETH 30 ML UNIT-DOSE CUP PO PRN (11:08)
[2019-09-09] MEDS ORDERED: METHADONE HCL 10 MG TABLET (FOR DETOX USE ONLY) PO ONE (11:35)
[2019-09-09] MEDS: BACITRACIN 15 GM TUBE TOPICAL OINTMENT TP SCH ×2 (12:27→22:04)
[2019-09-09 16:33] LABS: HEMATOCRIT 39.9 % (35.4-49); HEMOGLOBIN 13.6 GM/dL (11.7-16.9); MCH 32.1 pg (25.7-33.7); MCHC 34.1 g/dl (32.0-35.9); MEAN PLT VOLUME 7.6 fl (7.5-11.1); PLATELET COUNT 262 K/MM3 (134-434); RBC 4.24 M/mm3 (4.00-5.60); WHITE BLOOD COUNT 4.8 K/mm3 (4.0-10.0)
[2019-09-09 16:53] LABS: ALBUMIN 3.7 g/dl (3.4-5.0); BILIRUBIN,TOTAL 0.9 mg/dL (0.2-1); BLOOD UREA NITROGEN 23.9 mg/dL (7-18); CALCIUM 10.3 mg/dL (8.5-10.1); POTASSIUM 4.2 mmol/L (3.5-5.1); TOT PROT 6.7 g/dl (6.4-8.2)
[2019-09-09] MEDS: chlordiazePOXIDE HCL 25 MG CAPSULE PO SCH ×2 (16:53→22:04)
[2019-09-09] MEDS: THIAMINE HCL 100 MG TABLET (FP) PO SCH (22:04)
[2019-09-10] MEDS: chlordiazePOXIDE HCL 25 MG CAPSULE PO SCH ×4 (05:57→22:02)
[2019-09-10] MEDS ORDERED: METHADONE HCL 5 MG TABLET (FOR DETOX USE ONLY) PO ONE (10:00)
[2019-09-10] MEDS: PRENATAL VITAMINS W/ FOLIC ACID TABLET (FP) PO SCH (10:26)
[2019-09-10] MEDS: BACITRACIN 15 GM TUBE TOPICAL OINTMENT TP SCH ×2 (10:27→22:02)
--- NOTE | 2019-09-10 10:55 | PN ---
[facility] CIWA - CIWA Score Nausea/Vomitin-No Nausea/No Vomiting Muscle Tremors: None Anxiety: 3 Agitation: 2 Paroxysmal Sweats: 3 Orientation: 0-Oriented Tacttile Disturbances: 0-None Auditory Disturbances: 0-None Visual Disturbances: 0-None Headache: 0-None Present CIWA-Ar Total Score: 8 S COWS - Scale Resting Pulse: 0= [place] 80 or Below Sweatin= Beads of Sweat on Face Restless Observation: 1= Difficult to Sit Still Pupil Size: 0= Normal to Room Light Bone or Joint Aches: 2= Severe Diffuse Aches Runny Nose/ Eye Tearin= None GI Upset > 30mins: 0= None Tremor Observation of Outstretched Hands: 0= None Yawning Observation: 1= 1-2x During Session Anxiety or Irritability: 2=Irritable/Anxious Goose Flesh Skin: 0=Smooth Skin COWS Score: 9 [facility] Progress Note (SOAP) Subjective: c/o sweats, headache, anxiety, and irritability. Objective: 09/10/19 10:53 Vital Signs 09/10/19 09/10/19 09/10/19 03:30 06:07 08:53 Temperature 96.9 F L 97.5 F L Pulse Rate 65 73 Respiratory 18 18 18 Rate Blood Pressure 118/60 104/53 L Lab Results WBC 4.8 K/mm3 (4.0-10.0) 09/09/19 11:20 RBC 4.24 M/mm3 (4.00-5.60) 09/09/19 11:20 Hgb 13.6 GM/dL (11.7-16.9) 09/09/19 11:20 Hct 39.9 % (35.4-49) 09/09/19 11:20 MCV 94.0 fl (80-96) 09/09/19 11:20 MCHC 34.1 g/dl (32.0-35.9) 09/09/19 11:20 RDW 14.0 % (11.9-15.9) 09/09/19 11:20 Plt Count 262 K/MM3 (134-434) 09/09/19 11:20 Sodium 141 mmol/L (136-145) 09/09/19 11:20 Potassium 4.2 mmol/L (3.5-5.1) 09/09/19 11:20 Chloride 107 mmol/L (98-107) 09/09/19 11:20 Carbon Dioxide 30 mmol/L (21-32) 09/09/19 11:20 Anion Gap 4 MMOL/L (8-16) L 09/09/19 11:20 BUN 23.9 mg/dL (7-18) H 09/09/19 11:20 Creatinine 1.0 mg/dL (0.55-1.3) 09/09/19 11:20 Random Glucose 88 mg/dL (74-106) 09/09/19 11:20 Calcium 10.3 mg/dL (8.5-10.1) H 09/09/19 11:20 Labs noted. Assessment: 09/10/19 10:54 AOX3, in no acute respiratory distress. Full ROM, ambulating in the unit. Withdrawal symptoms. Plan: continue detox.
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
[2019-09-10 17:16] LABS: PH,URINE 5.5 (5.0-8.0); URINE APPEARANCE CLEAR; URINE BILIRUBIN NEGATIVE (NEGATIVE); URINE COLOR YELLOW; URINE GLUCOSE (UA) NEGATIVE (NEGATIVE); URINE KETONE NEGATIVE (NEGATIVE); URINE LEUK ESTERASE NEGATIVE (NEGATIVE); URINE NITRITE NEGATIVE (NEGATIVE); URINE PROTEIN NEGATIVE (NEGATIVE); URINE UROBILINOGEN 0.2 mg/dL (0.2-1.0)
[2019-09-10] MEDS: CEPHALEXIN MONOHYDRATE 500 MG CAPSULE (UD) PO SCH (22:02)
[2019-09-10] MEDS: THIAMINE HCL 100 MG TABLET (FP) PO SCH (22:02)
[2019-09-11] MEDS: chlordiazePOXIDE HCL 25 MG CAPSULE PO SCH ×4 (06:12→22:05)
[2019-09-11] MEDS ORDERED: METHADONE HCL 10 MG TABLET (FOR DETOX USE ONLY) PO ONE (10:00)
[2019-09-11] MEDS: PRENATAL VITAMINS W/ FOLIC ACID TABLET (FP) PO SCH (10:04)
[2019-09-11] MEDS: CEPHALEXIN MONOHYDRATE 500 MG CAPSULE (UD) PO SCH ×2 (10:04→22:05)
[2019-09-11] MEDS: BACITRACIN 15 GM TUBE TOPICAL OINTMENT TP SCH ×2 (10:04→22:04)
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
[2019-09-11] MEDS: IBUPROFEN 400 MG TABLET (FP) PO PRN ×2 (13:37→21:07)
[2019-09-11] MEDS: THIAMINE HCL 100 MG TABLET (FP) PO SCH (22:05)
[2019-09-12] MEDS ORDERED: chlordiazePOXIDE HCL 10 MG CAPSULE PO PRN
[2019-09-12] MEDS ORDERED: METHADONE HCL 5 MG TABLET (FOR DETOX USE ONLY) PO ONE (06:00)
[2019-09-12] MEDS: chlordiazePOXIDE HCL 10 MG CAPSULE PO SCH ×4 (06:20→22:15)
[2019-09-12] MEDS: CEPHALEXIN MONOHYDRATE 500 MG CAPSULE (UD) PO SCH ×2 (10:23→22:14)
[2019-09-12] MEDS: PRENATAL VITAMINS W/ FOLIC ACID TABLET (FP) PO SCH (10:24)
[2019-09-12] MEDS: LIDOCAINE 5% TOPICAL PATCH TP SCH (10:25)
[2019-09-12] MEDS: METHYL SALICYLATE/MENTHOL OINT 30 GM TUBE TP SCH ×2 (10:27→22:17)
[2019-09-12] MEDS: BACITRACIN 15 GM TUBE TOPICAL OINTMENT TP SCH ×2 (10:27→22:17)
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
[2019-09-12] MEDS: METHOCARBAMOL 500 MG TABLET PO PRN (22:14)
[2019-09-12] MEDS: THIAMINE HCL 100 MG TABLET (FP) PO SCH (22:14)
[2019-09-12] MEDS: MELATONIN 5 MG TABLETS PO PRN (22:15)
[2019-09-12] MEDS: LIDOCAINE PATCH REMOVAL MC SCH (22:18)
[2019-09-13] MEDS: chlordiazePOXIDE HCL 10 MG CAPSULE PO SCH ×2 (05:56→17:17)
[2019-09-13] MEDS: CEPHALEXIN MONOHYDRATE 500 MG CAPSULE (UD) PO SCH ×2 (09:54→21:40)
[2019-09-13] MEDS: PRENATAL VITAMINS W/ FOLIC ACID TABLET (FP) PO SCH (09:54)
[2019-09-13] MEDS: BACITRACIN 15 GM TUBE TOPICAL OINTMENT TP SCH ×2 (09:55→21:45)
[2019-09-13] MEDS: LIDOCAINE 5% TOPICAL PATCH TP SCH (09:55)
[2019-09-13] MEDS: METHYL SALICYLATE/MENTHOL OINT 30 GM TUBE TP SCH ×2 (09:55→21:45)
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
[2019-09-13] MEDS: THIAMINE HCL 100 MG TABLET (FP) PO SCH (21:40)
[2019-09-13] MEDS: METHOCARBAMOL 500 MG TABLET PO PRN (21:41)
[2019-09-13] MEDS: MELATONIN 5 MG TABLETS PO PRN (21:41)
[2019-09-13] MEDS: LIDOCAINE PATCH REMOVAL MC SCH (21:45)
[2019-09-14] MEDS ORDERED: chlordiazePOXIDE HCL 10 MG CAPSULE PO ONE (05:00)
[2019-09-14 06:05] VITALS: BP 117/66; PULSE 63; TEMP 96.5
[2019-09-14] MEDS: CEPHALEXIN MONOHYDRATE 500 MG CAPSULE (UD) PO SCH (09:20)
[2019-09-14] MEDS: PRENATAL VITAMINS W/ FOLIC ACID TABLET (FP) PO SCH (09:20)
[2019-09-14] MEDS: METHYL SALICYLATE/MENTHOL OINT 30 GM TUBE TP SCH (09:20)
[2019-09-14] MEDS: BACITRACIN 15 GM TUBE TOPICAL OINTMENT TP SCH (09:20)
[2019-09-14] MEDS: LIDOCAINE 5% TOPICAL PATCH TP SCH (09:21)
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
== END 2019-09-14 09:15 | disposition home or self-care (01) | DRG 773 ==
LOC: YASAS 10:01 → Y3N 11:28
PROVIDERS: ADMIT Allergy & Immunology; ATTEND Allergy & Immunology
PROC: HZ2ZZZZ Detoxification Services for Substance Abuse Treatment (ICD-10-PCS; principal; 2019-09-09)
DX: F10.230 Alcohol dependence with withdrawal, uncomplicated (principal); F11.23 Opioid dependence with withdrawal; F14.20 Cocaine dependence, uncomplicated; R63.4 Abnormal weight loss; Z68.24 Body mass index [BMI] 24.0-24.9, adult; S60.415A Abrasion of left ring finger, initial encounter; S00.31XA Abrasion of nose, initial encounter; L08.9 Local infection of the skin and subcutaneous tissue, unspecified; Y04.1XXA Assault by human bite, initial encounter; Y93.89 Activity, other specified; Y92.89 Other specified places as the place of occurrence of the external cause; Y99.8 Other external cause status
CPT/HCPCS: 36415; 80053; 81003; 85027; 86593

== ENCOUNTER 2019-11-09 09:24 | Inpatient (IN) | payer OTHER ==
[2019-11-09 10:30] VITALS: BMI 24.4
--- NOTE | 2019-11-09 11:20 | HP ---
COWS - Scale Resting Pulse: 1= SD 81-100 Sweatin= Chills/Flushing Restless Observation: 3= Extraneous Movement Pupil Size: 1= Pupils >than Normal Bone or Joint Aches: 1= Mild Discomfort Runny Nose/ Eye Tearin= Nasal Congestion GI Upset > 30mins: 2= Nausea/Diarrhea Tremor Observation: 1= Tremor [place], Not Seen Yawning Observation: 1= 1-2x During Session Anxiety or Irritability: 1=Feels Anxious/Irritable Goose Flesh Skin: 0=Smooth Skin COWS Score: 13 CIWA Score - Admission Criteria OASAS Guidelines: Admission for Medically Managed Detox: Requires at least one of the followin. CIWA greater than 12 2. Seizures within the past 24 hours 3. Delirium tremens within the past 24 hours 4. Hallucinations within the past 24 hours 5. Acute intervention needed for co occurring medical disorder 6. Acute intervention needed for co occurring psychiatric disorder 7. Severe withdrawal that cannot be handled at a lower level of care (continued vomiting, continued diarrhea, abnormal vital signs) requiring intravenous medication and/or fluids 8. Admitting History and Physical - Admission Chief Complaint: " I want to enter detox and then go to residential treatment." History of Present Illness: 29 years old male with heroin,cocaine,alcohol dependence seeking detox, withdrawal symptom,multiple admissions in the past ,last detox 09/2019 completed and then could not go to rehab due to inactive medicaid that would not cover. 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 He is using 1 bundle of heroin daily, last used midnight last night. He did have an over dose last year. He does not carry or have Narcan. He is using $60 daily, last used last night. He is not currently drinking alcohol on a regular basis, sporadically. PMH: None Psych: Depression but on no meds, Denies SI, or plans. Psurg: Left inguinal hernia repair He is unemployed and has no real occupation. He's had unintentional weight loss History Source: Patient Limitations to Obtaining History: No Limitations - Past Surgical History Past Surgical History: Yes: None - Advance Directives Advance Directives: No: Living Will, Health Care Proxy, DNR - Smoking History Smoking history: Former smoker Have you smoked in the past 12 months: No If you are a former smoker, when did you quit?: at age 22 - Alcohol/Substance Use Hx Alcohol Use: Yes History of Substance Use: reports: Cocaine, Heroin Date of Last Use: 11/09/19 - Social History Usual Living Arrangement: Yes: Alone Do you think of yourself as: Straight/Heterosexual ADL: Independent Occupation: unemployed History of Recent Travel: No Admission ROS S - HPI Allergies/Adverse Reactions: Allergies Allergy/AdvReac Type Severity Reaction Status Date / Time No Known Allergies Allergy Verified 11/09/19 10:26 Exam Limitations: No Limitations - Ebola screening Have you traveled outside of the country in the last 21 days: No (NN) Have you had contact with anyone from an Ebola affected area: No Have you been sick,other than usual withdrawal symptoms: No Do you have a fever: No - Review of Systems Constitutional: Chills, Unintentional Wgt. Loss EENT: reports: No Symptoms Reported Respiratory: reports: No Symptoms reported Cardiac: reports: No Symptoms Reported GI: reports: Nausea, Abdominal cramping : reports: No Symptoms Reported Musculoskeletal: reports: Back Pain, Muscle Pain Integumentary: reports: No Symptoms Reported Neuro: reports: No Symptoms reported Endocrine: reports: No Symptoms Reported Hematology: reports: No Symptoms Reported Psychiatric: reports: Judgement Intact, Mood/Affect Appropiate, Orientated x3, Agitated, Anxious Other Systems: Reviewed and Negative Patient History - Patient Medical History Hx Anemia: No Hx Asthma: No Hx Chronic Obstructive Pulmonary Disease (COPD): No Hx Cancer: No Hx Cardiac Disorders: No Hx Congestive Heart Failure: No Hx Hypertension: No Hx Hypercholesterolemia: No Hx Pacemaker: No HX Cerebrovascular Accident: No Hx Seizures: No Hx Dementia: No Hx Diabetes: No Hx Gastrointestinal Disorders: No Hx Liver Disease: No Hx Genitourinary Disorders: No Hx Sexually Transmitted Disorders: No Hx Renal Disease (ESRD): No Hx Thyroid Disease: No Hx Human Immunodeficiency Virus (HIV): No (last 07/28 ntative) Hx Hepatitis C: No Hx Depression: Yes Hx Suicide Attempt: No Hx Schizophrenia: No - Patient Surgical History Past Surgical History: Yes Hx Neurologic Surgery: No Hx Cataract Extraction: No Hx Cardiac Surgery: No Hx Lung Surgery: No Hx Breast Surgery: No Hx Breast Biopsy: No Hx Abdominal Surgery: No Hx Appendectomy: No Hx Cholecystectomy: No Hx Genitourinary Surgery: No Hx Section: No Hx Orthopedic Surgery: No Other Surgical History: left inguinal hernia repair in 2016 Anesthesia Reaction: No - PPD History Date: 05/24/18 Results: 0 mm - Smoking Cessation Smoking history: Former smoker Have you smoked in the past 12 months: No If you are a former smoker, when did you quit?: at age 22 Hx Chewing Tobacco Use: No Initiated information on smoking cessation: No - Substances abused Heroin Substance route: Injection Frequency: Daily Amount used: 5 bags Age of first use: 24 Date of last use: 11/08/19 Marijuana/Hashish Substance route: Smoking Frequency: Daily Amount used: 3 blunts/day Age of first use: 21 Date of last use: 05/25/19 Alcohol Substance route: Oral Frequency: Daily Amount used: 16OZ beer (8 -10) cans Age of first use: 18 Date of last use: 11/07/19 Cocaine Substance route: Injection Frequency: Daily Amount used: 3 bags Age of first use: 24 Date of last use: 11/09/19 Admission Physical Exam S - Vital Signs Vital Signs: Vital Signs - 24 hr 11/09/19 11/09/19 10:26 11:11 Temperature 98.9 F 98.9 F Pulse Rate 96 H 96 H Respiratory 16 16 Rate Blood Pressure 127/57 L 127/57 L - Physical General Appearance: Yes: Moderate Distress, Irritable, Sweating, Anxious HEENTM: Yes: EOMI, Hearing grossly Normal, Normal ENT Inspection, Normocephalic , Normal Voice, EARLINE, Pharynx Normal, Tm's normal Respiratory: Yes: Chest Non-Tender, Lungs Clear, Normal Breath Sounds, No Respiratory Distress, No Accessory Muscle Use Neck: Yes: No masses,lesions,Nodules, Supple, Trachea in good position Breast: Yes: Within Normal Limits Cardiology: Yes: Regular Rhythm, S1, S2, Tachycardia Abdominal: Yes: Non Tender, Flat, Soft, Increased Bowel Sounds, Surgical Scar ( left inguinal hernia scar), Other Genitourinary: Yes: Within Normal Limits Back: Yes: Normal Inspection Musculoskeletal: Yes: full range of Motion, Gait Steady, Pelvis Stable Extremities: Yes: Normal Capillary Refill, Normal Inspection, Normal Range of Motion, Non-Tender Neurological: Yes: hardboard grinder II-XII NML intact, Fully Oriented, Alert, Motor Strength 5/5, Normal Mood/Affect, Normal Response Integumentary: Yes: Normal Color, Warm Lymphatic: Yes: Within Normal Limits - Diagnostic (1) IVDU (intravenous drug user) Current Visit: Yes Status: Acute (2) Opioid dependence with withdrawal Current Visit: Yes Status: Acute (3) Weight loss Current Visit: Yes Status: Acute (4) Cocaine dependence Current Visit: Yes Status: Chronic Qualifiers: Substance use status: uncomplicated Qualified Code(s): F14.20 - Cocaine dependence, uncomplicated (5) Marijuana dependence Current Visit: Yes Status: Chronic Cleared for Admission [facility] - Detox or Rehab [facility] Level of Care: Medically Managed Detox Regimen/Protocol: Methadone Claeared for Rehab Admission: No Screened but not Admitted - Documentation of Visit Screened but not Admitted: No Breathalyzer - Breathalyzer Breathalyzer: 0 Urine Drug Screen - Test Device Lot number: [id number] Expiration date: 06/08/21 - Control Is test valid?: Yes - Results Drug screen NEGATIVE: No Urine drug screen results: THC-Marijuana, CHAKA-Cocaine, FEN-Fentanyl, MOP-Opiates , BUP-Suboxone Inpatient Rehab Admission - Rehab Decision to Admit Inpatient rehab admission?: No
[2019-11-09] MEDS ORDERED: MAGNESIUM CITRATE 300 ML BOTTLE PO PRN (11:27)
[2019-11-09] MEDS ORDERED: MENTHOL/PHENOL 1 EACH UD MM PRN (11:27)
[2019-11-09] MEDS ORDERED: MAG HYDROX/AL HYDROX/SIMETH 30 ML UNIT-DOSE CUP PO PRN (11:27)
[2019-11-09] MEDS ORDERED: METHADONE HCL 10 MG TABLET (FOR DETOX USE ONLY) PO ONE (11:27)
[2019-11-09] MEDS ORDERED: BISMUTH SUBSALICYLATE 524 MG/30 ML UD PO PRN (11:27)
[2019-11-09] MEDS ORDERED: IBUPROFEN 400 MG TABLET (FP) PO PRN (11:27)
[2019-11-09] MEDS ORDERED: MAGNESIUM HYDROX 2400MG/30ML ORAL SUSPENSION 30 ML CUP PO PRN (11:27)
[2019-11-09] MEDS ORDERED: cloNIDine HCL 0.1 MG TABLET PO PRN (11:27)
[2019-11-09] MEDS ORDERED: ACETAMINOPHEN 325 MG TABLET (FP) PO PRN ×2 (11:27)
[2019-11-09] MEDS: hydrOXYzine PAMOATE 25 MG CAPSULE (FP) PO PRN ×2 (12:47→22:33)
[2019-11-09] MEDS: METHOCARBAMOL 500 MG TABLET PO PRN (17:17)
[2019-11-09] MEDS: THIAMINE HCL 100 MG TABLET (FP) PO SCH (22:32)
[2019-11-09] MEDS: MELATONIN 5 MG TABLETS PO PRN (22:33)
[2019-11-10] MEDS ORDERED: METHADONE HCL 10 MG TABLET (FOR DETOX USE ONLY) ONE (08:19)
[2019-11-10] MEDS ORDERED: METHADONE HCL 5 MG TABLET (FOR DETOX USE ONLY) ONE (08:20)
[2019-11-10] MEDS ORDERED: METHADONE (DETOX) 20 MG, METHADONE (DETOX) 5 MG PO ONE (10:00)
[2019-11-10 10:13] LABS: HEMATOCRIT 35.5 % (35.4-49); HEMOGLOBIN 11.7 GM/dL (11.7-16.9); MCH 30.3 pg (25.7-33.7); MCHC 32.9 g/dl (32.0-35.9); MEAN CELL VOLUME 92.1 fl (80-96); MEAN PLT VOLUME 7.6 fl (7.5-11.1); PLATELET COUNT 281 K/MM3 (134-434); RBC 3.85 M/mm3 (4.00-5.60); RDW 13.5 % (11.9-15.9); WHITE BLOOD COUNT 4.1 K/mm3 (4.0-10.0)
[2019-11-10] MEDS: PRENATAL VITAMINS W/ FOLIC ACID TABLET (FP) PO SCH (10:17)
[2019-11-10 10:25] LABS: BILIRUBIN,TOTAL 0.4 mg/dL (0.2-1); BLOOD UREA NITROGEN 10.6 mg/dL (7-18); CALCIUM 10.2 mg/dL (8.5-10.1); CREATININE 0.7 mg/dL (0.55-1.3); TOT PROT 5.8 g/dl (6.4-8.2)
--- NOTE | 2019-11-10 10:50 | PN ---
[facility] COWS - Scale Resting Pulse: 1= AR 81-100 Sweatin= Chills/Flushing Restless Observation: 0= Sits Still Pupil Size: 1= Pupils >than Normal Bone or Joint Aches: 2= Severe Diffuse Aches Runny Nose/ Eye Tearin= None GI Upset > 30mins: 2= Nausea/Diarrhea Tremor Observation of Outstretched Hands: 1= Tremor [place], Not Seen Yawning Observation: 0= None Anxiety or Irritability: 1=Feels Anxious/Irritable Goose Flesh Skin: 3=Piloerection COWS Score: 12 [facility] Progress Note (SOAP) Subjective: 29 years old male admitted on 11/09/28 for opiate withdrawal sx management treating with methadone detox regimen feeling tired resting on bed discuss medication assisted treatment program encourage to fiber picker narcan from pharmacy Objective: 11/10/19 10:54 Vital Signs Temperature 98.1 F 11/10/19 09:23 Pulse Rate 81 11/10/19 09:23 Respiratory Rate 19 11/10/19 09:23 Blood Pressure 127/79 11/10/19 09:23 O2 Sat by Pulse Oximetry (%) Laboratory Last Values WBC 4.1 K/mm3 (4.0-10.0) 11/10/19 08:00 RBC 3.85 M/mm3 (4.00-5.60) L 11/10/19 08:00 Hgb 11.7 GM/dL (11.7-16.9) 11/10/19 08:00 Hct 35.5 % (35.4-49) 11/10/19 08:00 MCV 92.1 fl (80-96) 11/10/19 08:00 MCH 30.3 pg (25.7-33.7) 11/10/19 08:00 MCHC 32.9 g/dl (32.0-35.9) 11/10/19 08:00 RDW 13.5 % (11.9-15.9) 11/10/19 08:00 Plt Count 281 K/MM3 (134-434) 11/10/19 08:00 MPV 7.6 fl (7.5-11.1) 11/10/19 08:00 Sodium 141 mmol/L (136-145) 11/10/19 08:00 Potassium 4.0 mmol/L (3.5-5.1) 11/10/19 08:00 Chloride 109 mmol/L (98-107) H 11/10/19 08:00 Carbon Dioxide 29 mmol/L (21-32) 11/10/19 08:00 Anion Gap 4 MMOL/L (8-16) L 11/10/19 08:00 BUN 10.6 mg/dL (7-18) 11/10/19 08:00 Creatinine 0.7 mg/dL (0.55-1.3) 11/10/19 08:00 Est GFR (CKD-EPI)AfAm 147.81 11/10/19 08:00 Est GFR (CKD-EPI)NonAf 127.53 11/10/19 08:00 Random Glucose 82 mg/dL (74-106) 11/10/19 08:00 Calcium 10.2 mg/dL (8.5-10.1) H 11/10/19 08:00 Total Bilirubin 0.4 mg/dL (0.2-1) 11/10/19 08:00 AST 18 U/L (15-37) 11/10/19 08:00 ALT 19 U/L (13-61) 11/10/19 08:00 Alkaline Phosphatase 71 U/L (45-117) 11/10/19 08:00 Total Protein 5.8 g/dl (6.4-8.2) L 11/10/19 08:00 Albumin 3.0 g/dl (3.4-5.0) L 11/10/19 08:00 lab noted Assessment: 11/10/19 10:55 opiate withdrawal Plan: methadone regimen
[2019-11-10] MEDS ORDERED: FLU VACCINE QUAD 60 MCG/0.5 ML (MDV 19-20) IM ONE (12:00)
[2019-11-10] MEDS: MELATONIN 5 MG TABLETS PO PRN (22:26)
[2019-11-10] MEDS: THIAMINE HCL 100 MG TABLET (FP) PO SCH (22:26)
[2019-11-11] MEDS: PRENATAL VITAMINS W/ FOLIC ACID TABLET (FP) PO SCH (09:13)
[2019-11-11] MEDS ORDERED: METHADONE HCL 10 MG TABLET (FOR DETOX USE ONLY) PO ONE (10:00)
--- NOTE | 2019-11-11 11:08 | PN ---
S COWS - Scale Resting Pulse: 1= VT 81-100 Sweatin= Beads of Sweat on Face Restless Observation: 1= Difficult to Sit Still Pupil Size: 0= Normal to Room Light Bone or Joint Aches: 1= Mild Discomfort Runny Nose/ Eye Tearin= None GI Upset > 30mins: 0= None Tremor Observation of Outstretched Hands: 2= Slight Tremor Visible Yawning Observation: 1= 1-2x During Session Anxiety or Irritability: 2=Irritable/Anxious Goose Flesh Skin: 0=Smooth Skin COWS Score: 11 [facility] Progress Note (SOAP) Subjective: c/o muscle aches, chills, sweats, irritability, shakes, and anxiety. Objective: 11/11/19 11:10 Vital Signs 11/11/19 11/11/19 11/11/19 03:30 06:33 09:14 Temperature 98.6 F 975 F H Pulse Rate 85 95 H Respiratory 18 18 18 Rate Blood Pressure 119/66 133/86 Laboratory Last Values WBC 4.1 K/mm3 (4.0-10.0) 11/10/19 08:00 RBC 3.85 M/mm3 (4.00-5.60) L 11/10/19 08:00 Hgb 11.7 GM/dL (11.7-16.9) 11/10/19 08:00 Hct 35.5 % (35.4-49) 11/10/19 08:00 MCV 92.1 fl (80-96) 11/10/19 08:00 MCH 30.3 pg (25.7-33.7) 11/10/19 08:00 MCHC 32.9 g/dl (32.0-35.9) 11/10/19 08:00 RDW 13.5 % (11.9-15.9) 11/10/19 08:00 Plt Count 281 K/MM3 (134-434) 11/10/19 08:00 MPV 7.6 fl (7.5-11.1) 11/10/19 08:00 Sodium 141 mmol/L (136-145) 11/10/19 08:00 Potassium 4.0 mmol/L (3.5-5.1) 11/10/19 08:00 Chloride 109 mmol/L (98-107) H 11/10/19 08:00 Carbon Dioxide 29 mmol/L (21-32) 11/10/19 08:00 Anion Gap 4 MMOL/L (8-16) L 11/10/19 08:00 BUN 10.6 mg/dL (7-18) 11/10/19 08:00 Creatinine 0.7 mg/dL (0.55-1.3) 11/10/19 08:00 Est GFR (CKD-EPI)AfAm 147.81 11/10/19 08:00 Est GFR (CKD-EPI)NonAf 127.53 11/10/19 08:00 Random Glucose 82 mg/dL (74-106) 11/10/19 08:00 Calcium 10.2 mg/dL (8.5-10.1) H 11/10/19 08:00 Total Bilirubin 0.4 mg/dL (0.2-1) 11/10/19 08:00 AST 18 U/L (15-37) 11/10/19 08:00 ALT 19 U/L (13-61) 11/10/19 08:00 Alkaline Phosphatase 71 U/L (45-117) 11/10/19 08:00 Total Protein 5.8 g/dl (6.4-8.2) L 11/10/19 08:00 Albumin 3.0 g/dl (3.4-5.0) L 11/10/19 08:00 RPR Titer Nonreactive (NONREACTIVE) 11/10/19 08:00 Labs noted. Assessment: 11/11/19 11:10 AOX3, in no acute respiratory distress. Full ROM, ambulating in the unit. Withdrawal symptoms. Plan: continue detox. Increase fluids.
[2019-11-11] MEDS: hydrOXYzine PAMOATE 25 MG CAPSULE (FP) PO PRN (22:57)
[2019-11-11] MEDS: MELATONIN 5 MG TABLETS PO PRN (22:57)
[2019-11-11] MEDS: METHOCARBAMOL 500 MG TABLET PO PRN (22:57)
[2019-11-11] MEDS: THIAMINE HCL 100 MG TABLET (FP) PO SCH (22:57)
[2019-11-12] MEDS ORDERED: METHADONE HCL 10 MG TABLET (FOR DETOX USE ONLY) ONE (08:58)
[2019-11-12] MEDS ORDERED: METHADONE HCL 5 MG TABLET (FOR DETOX USE ONLY) ONE (08:58)
[2019-11-12] MEDS ORDERED: METHADONE (DETOX) 10 MG, METHADONE (DETOX) 5 MG PO ONE (10:00)
[2019-11-12] MEDS: PRENATAL VITAMINS W/ FOLIC ACID TABLET (FP) PO SCH (10:34)
--- NOTE | 2019-11-12 12:13 | PN ---
S COWS - Scale Resting Pulse: 0= MT 80 or Below Sweatin= Beads of Sweat on Face Restless Observation: 1= Difficult to Sit Still Pupil Size: 0= Normal to Room Light Bone or Joint Aches: 2= Severe Diffuse Aches Runny Nose/ Eye Tearin= None GI Upset > 30mins: 0= None Tremor Observation of Outstretched Hands: 0= None Yawning Observation: 1= 1-2x During Session Anxiety or Irritability: 2=Irritable/Anxious Goose Flesh Skin: 0=Smooth Skin COWS Score: [address] [facility] Progress Note (SOAP) Subjective: c/o muscle aches, anxiety, and sweats. Objective: 11/12/19 12:14 Vital Signs 11/12/19 11/12/19 06:25 09:16 Temperature 98.1 F 98.5 F Pulse Rate 70 73 Respiratory 16 18 Rate Blood Pressure 122/63 118/78 Lab Results WBC 4.1 K/mm3 (4.0-10.0) 11/10/19 08:00 RBC 3.85 M/mm3 (4.00-5.60) L 11/10/19 08:00 Hgb 11.7 GM/dL (11.7-16.9) 11/10/19 08:00 Hct 35.5 % (35.4-49) 11/10/19 08:00 MCV 92.1 fl (80-96) 11/10/19 08:00 MCHC 32.9 g/dl (32.0-35.9) 11/10/19 08:00 RDW 13.5 % (11.9-15.9) 11/10/19 08:00 Plt Count 281 K/MM3 (134-434) 11/10/19 08:00 Sodium 141 mmol/L (136-145) 11/10/19 08:00 Potassium 4.0 mmol/L (3.5-5.1) 11/10/19 08:00 Chloride 109 mmol/L (98-107) H 11/10/19 08:00 Carbon Dioxide 29 mmol/L (21-32) 11/10/19 08:00 Anion Gap 4 MMOL/L (8-16) L 11/10/19 08:00 BUN 10.6 mg/dL (7-18) 11/10/19 08:00 Creatinine 0.7 mg/dL (0.55-1.3) 11/10/19 08:00 Random Glucose 82 mg/dL (74-106) 11/10/19 08:00 Calcium 10.2 mg/dL (8.5-10.1) H 11/10/19 08:00 Labs noted. Assessment: 11/12/19 12:14 AOX3, in no acute respiratory distress. Full ROM, ambulating in the unit. Withdrawal symptoms. Plan: continue detox.
[2019-11-12] MEDS: MELATONIN 5 MG TABLETS PO PRN (22:16)
[2019-11-12] MEDS: THIAMINE HCL 100 MG TABLET (FP) PO SCH (22:16)
[2019-11-13] MEDS ORDERED: METHADONE HCL 10 MG TABLET (FOR DETOX USE ONLY) PO ONE (10:00)
[2019-11-13] MEDS: PRENATAL VITAMINS W/ FOLIC ACID TABLET (FP) PO SCH (10:32)
--- NOTE | 2019-11-13 12:43 | PN ---
[facility] COWS - Scale Resting Pulse: 0= [place] 80 or Below Sweatin= Chills/Flushing Restless Observation: 0= Sits Still Pupil Size: 0= Normal to Room Light Bone or Joint Aches: 1= Mild Discomfort Runny Nose/ Eye Tearin= None GI Upset > 30mins: 1= Stomach Cramp Tremor Observation of Outstretched Hands: 1= Tremor [place], Not Seen Yawning Observation: 0= None Anxiety or Irritability: 1=Feels Anxious/Irritable Goose Flesh Skin: 0=Smooth Skin COWS Score: 5 [facility] Progress Note (SOAP) Subjective: 29 years old male admitted on 11/09/19 for opiate withdrawal sx management treating with methadone detox regimen feeling better today mild body aches ate breakfast in day room social with peers in day room discuss medication assisted treatment program picking up narcan from pharmacy Objective: 11/13/19 12:44 Vital Signs Temperature 97.2 F L 11/13/19 09:27 Pulse Rate 72 11/13/19 09:27 Respiratory Rate 18 11/13/19 09:27 Blood Pressure 127/76 11/13/19 09:27 O2 Sat by Pulse Oximetry (%) Laboratory Last Values WBC 4.1 K/mm3 (4.0-10.0) 11/10/19 08:00 RBC 3.85 M/mm3 (4.00-5.60) L 11/10/19 08:00 Hgb 11.7 GM/dL (11.7-16.9) 11/10/19 08:00 Hct 35.5 % (35.4-49) 11/10/19 08:00 MCV 92.1 fl (80-96) 11/10/19 08:00 MCH 30.3 pg (25.7-33.7) 11/10/19 08:00 MCHC 32.9 g/dl (32.0-35.9) 11/10/19 08:00 RDW 13.5 % (11.9-15.9) 11/10/19 08:00 Plt Count 281 K/MM3 (134-434) 11/10/19 08:00 MPV 7.6 fl (7.5-11.1) 11/10/19 08:00 Sodium 141 mmol/L (136-145) 11/10/19 08:00 Potassium 4.0 mmol/L (3.5-5.1) 11/10/19 08:00 Chloride 109 mmol/L (98-107) H 11/10/19 08:00 Carbon Dioxide 29 mmol/L (21-32) 11/10/19 08:00 Anion Gap 4 MMOL/L (8-16) L 11/10/19 08:00 BUN 10.6 mg/dL (7-18) 11/10/19 08:00 Creatinine 0.7 mg/dL (0.55-1.3) 11/10/19 08:00 Est GFR (CKD-EPI)AfAm 147.81 11/10/19 08:00 Est GFR (CKD-EPI)NonAf 127.53 11/10/19 08:00 Random Glucose 82 mg/dL (74-106) 11/10/19 08:00 Calcium 10.2 mg/dL (8.5-10.1) H 11/10/19 08:00 Total Bilirubin 0.4 mg/dL (0.2-1) 11/10/19 08:00 AST 18 U/L (15-37) 11/10/19 08:00 ALT 19 U/L (13-61) 11/10/19 08:00 Alkaline Phosphatase 71 U/L (45-117) 11/10/19 08:00 Total Protein 5.8 g/dl (6.4-8.2) L 11/10/19 08:00 Albumin 3.0 g/dl (3.4-5.0) L 11/10/19 08:00 RPR Titer Nonreactive (NONREACTIVE) 11/10/19 08:00 lab noted Assessment: 11/13/19 12:45 opiate withdrawal Plan: methadone regimen
[2019-11-13] MEDS ORDERED: PT OWN MED DRAWER 7, Y5N ONE (21:35)
[2019-11-13] MEDS: THIAMINE HCL 100 MG TABLET (FP) PO SCH (22:22)
[2019-11-13] MEDS: MELATONIN 5 MG TABLETS PO PRN (22:22)
[2019-11-14] MEDS ORDERED: METHADONE HCL 5 MG TABLET (FOR DETOX USE ONLY) PO ONE (06:00)
[2019-11-14 09:05] VITALS: BP 115/68; PULSE 73; TEMP 97.4
[2019-11-14] MEDS: PRENATAL VITAMINS W/ FOLIC ACID TABLET (FP) PO SCH (10:31)
--- NOTE | 2019-11-14 12:56 | DS ---
[facility] Detox Discharge Summary Admission Date: 11/09/19 Discharge Date: 11/14/19 - History Present History: Opioid Dependence Additional Comments: 29 years old male admitted on 11/09/19 for opiate withdrawal sx management treated with methadone detox regimen patient tolerated well alert oriented x 3 cardiac s1s2 regular rate rhythm respiratory clear lungs bilaterally on auscultation extremities full range of motion - Physical Exam Results Vital Signs: Vital Signs Temperature 97.4 F L 11/14/19 09:05 Pulse Rate 73 11/14/19 09:05 Respiratory Rate 18 11/14/19 09:05 Blood Pressure 115/68 11/14/19 09:05 O2 Sat by Pulse Oximetry (%) Pertinent Admission Physical Exam Findings: opiate withdrawal Laboratory Last Values WBC 4.1 K/mm3 (4.0-10.0) 11/10/19 08:00 RBC 3.85 M/mm3 (4.00-5.60) L 11/10/19 08:00 Hgb 11.7 GM/dL (11.7-16.9) 11/10/19 08:00 Hct 35.5 % (35.4-49) 11/10/19 08:00 MCV 92.1 fl (80-96) 11/10/19 08:00 MCH 30.3 pg (25.7-33.7) 11/10/19 08:00 MCHC 32.9 g/dl (32.0-35.9) 11/10/19 08:00 RDW 13.5 % (11.9-15.9) 11/10/19 08:00 Plt Count 281 K/MM3 (134-434) 11/10/19 08:00 MPV 7.6 fl (7.5-11.1) 11/10/19 08:00 Sodium 141 mmol/L (136-145) 11/10/19 08:00 Potassium 4.0 mmol/L (3.5-5.1) 11/10/19 08:00 Chloride 109 mmol/L (98-107) H 11/10/19 08:00 Carbon Dioxide 29 mmol/L (21-32) 11/10/19 08:00 Anion Gap 4 MMOL/L (8-16) L 11/10/19 08:00 BUN 10.6 mg/dL (7-18) 11/10/19 08:00 Creatinine 0.7 mg/dL (0.55-1.3) 11/10/19 08:00 Est GFR (CKD-EPI)AfAm 147.81 11/10/19 08:00 Est GFR (CKD-EPI)NonAf 127.53 11/10/19 08:00 Random Glucose 82 mg/dL (74-106) 11/10/19 08:00 Calcium 10.2 mg/dL (8.5-10.1) H 11/10/19 08:00 Total Bilirubin 0.4 mg/dL (0.2-1) 11/10/19 08:00 AST 18 U/L (15-37) 11/10/19 08:00 ALT 19 U/L (13-61) 11/10/19 08:00 Alkaline Phosphatase 71 U/L (45-117) 11/10/19 08:00 Total Protein 5.8 g/dl (6.4-8.2) L 11/10/19 08:00 Albumin 3.0 g/dl (3.4-5.0) L 11/10/19 08:00 RPR Titer Nonreactive (NONREACTIVE) 11/10/19 08:00 lab noted - Treatment Hospital Course: Detox Protocol Followed, Detoxed Safely, Responded well, Discharged Condition Good, Rehab Referral Accepted Patient has Accepted [facility] - Medication Discharge Medications: Ambulatory Orders Naloxone HCl [Narcan] 4 mg NS ASDIR PRN #1 spray 11/10/19 - Diagnosis (1) Opioid dependence with withdrawal Current Visit: Yes Status: Acute - AMA Did Patient Leave Against Medical Advice: No COWS (PN) - Opiate Withdrawal Resting Pulse: 0= DC 80 or Below Sweatin= No chills or Flushing Restless Observation: 0= Sits Still Pupil Size: 0= Normal to Room Light Bone or Joint Aches: 1= Mild Discomfort Runny Nose/ Eye Tearin= None GI Upset > 30mins: 0= None Tremor Observation of Outstretched Hands: 0= None Yawning Observation: 0= None Anxiety or Irritability: 1=Feels Anxious/Irritable Goose Flesh Skin: 0=Smooth Skin COWS Score: 2
== END 2019-11-14 13:00 | disposition other institution (70) | DRG 773 ==
LOC: YASAS 09:24 → Y3N 11:45
PROVIDERS: ADMIT Allergy & Immunology; ATTEND Allergy & Immunology
PROC: HZ2ZZZZ Detoxification Services for Substance Abuse Treatment (ICD-10-PCS; principal; 2019-11-09)
DX: F11.23 Opioid dependence with withdrawal (principal); F14.20 Cocaine dependence, uncomplicated; F12.20 Cannabis dependence, uncomplicated; R63.4 Abnormal weight loss; R00.0 Tachycardia, unspecified; Z87.891 Personal history of nicotine dependence; Z56.0 Unemployment, unspecified
CPT/HCPCS: 36415; 80053; 85027; 86593; J0735; Q2036

== ENCOUNTER 2019-11-14 13:36 | Inpatient (IN) | payer OTHER ==
--- NOTE | 2019-11-14 12:58 | HP ---
LAURO GRACIA Rehab Assess/Revision - Admission History Admitted to Rehab from: [facility] Date of Admission to Rehab: 11/14/19 - Findings Detox History & Physical reviewed: Yes Concur with findings: Yes Comments/Additional Findings: transferred from detox to rehab admission as per protocol Inpatient Rehab Admission - Rehab Decision to Admit Inpatient rehab admission?: Yes - Initial Determination Are CD services needed?: Yes Free of communicable disease: Yes Not in need of hospitalization: Yes - Rehab Admission Criteria Previous failed treatment: Yes Poor recovery environment: Yes Comorbidities: Yes Lacks judgement: Yes Patient is meeting Inpatient Rehab admission criteria:: Yes
[~2019-11-14 13:36] MED LIST: ACETAMINOPHEN 325 MG TABLET (FP) PO PRN; IBUPROFEN 400 MG TABLET (FP) PO PRN; LOPERAMIDE HCL 2 MG CAPSULE PO PRN; MAG HYDROX/AL HYDROX/SIMETH 30 ML UNIT-DOSE CUP PO PRN; MAGNESIUM CITRATE 300 ML BOTTLE PO PRN; MAGNESIUM HYDROX 2400MG/30ML ORAL SUSPENSION 30 ML CUP PO PRN; MENTHOL/PHENOL 1 EACH UD MM PRN; P-EPHED 60MG/TRIPROLIDI 2.5MG TABLET PO PRN; guaiFENesin 200 MG/10 ML 10 ML UNIT-DOSE CUPS PO PRN
[2019-11-14] MEDS ORDERED: PT OWN MED DRAWER 7, Y5N ONE (17:11)
--- NOTE | 2019-11-14 20:28 | PN ---
[facility] Progress Note Note: Patient was hospitalized at [facility] for an overdose and left on 11/08. States while at [place] they did chest x-rays and he also had a robles catheter in. 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 patient transferred here to rehab today.. Patient presently c/o blood w/ urination x 1 day w/ burning. Objective: Urine + reddish color. No clots. Neg CVA tenderness. Bladder non-distended but tender to deep palpation. Circumcised penis w/o swelling, lesions, or urethral discharge. Lungs clear w/ good chest expansion. Pulse Ox = 99 % Prior labs reviewed. No U/A taken. Assess: Hematuria. R/o UTI Plan: Encouraged 2 pitchers water daily. Sent urine specimen for U/A and C&S. Will start Amoxicillin 750 BID x 7 days, after urine specimen collected.
[2019-11-14] MEDS: MELATONIN 5 MG TABLETS PO PRN (22:08)
[2019-11-14] MEDS: THIAMINE HCL 100 MG TABLET (FP) PO SCH (22:08)
[2019-11-14 22:40] LABS: EPI CELLS 2.2 /HPF (0-5/HPF); HYALINE CASTS 4 /lpf (0-8); URINE APPEARANCE CLOUDY; URINE BILIRUBIN NEGATIVE (NEGATIVE); URINE COLOR RED; URINE GLUCOSE (UA) NEGATIVE (NEGATIVE); URINE KETONE NEGATIVE (NEGATIVE); URINE LEUK ESTERASE TRACE (NEGATIVE); URINE NITRITE NEGATIVE (NEGATIVE); URINE PROTEIN TRACE (NEGATIVE); URINE RBC 2097 /hpf (0-4); URINE UROBILINOGEN 0.2 mg/dL (0.2-1.0); URINE WBC 6 /hpf (0-5)
[2019-11-14] MEDS: AMOXICILLIN 250 MG CAPSULE PO SCH (22:50)
[2019-11-15] MEDS ORDERED: MIDAZOLAM HCL 2 MG/2 ML SINGLE DOSE VIAL ONE ×2 (10:25)
[2019-11-15] MEDS ORDERED: fentaNYL CITRATE 250 MCG/5 ML VIAL ONE (10:25)
[2019-11-15] MEDS ORDERED: PROPOFOL 20 ML ONE (10:26)
[2019-11-15] MEDS: AMOXICILLIN 250 MG CAPSULE PO SCH ×2 (11:04→21:48)
[2019-11-15] MEDS: PRENATAL VITAMINS W/ FOLIC ACID TABLET (FP) PO SCH (11:04)
--- NOTE | 2019-11-15 14:33 | PN ---
[facility] Progress Note Note: Pt is a 29 y/o male with a hx of BAKARI-heroin,cocaine and alcohol("a little bit") admitted to rehab from [facility] yesterday. Pt reports he has no doctor but goes to [facility] ER for care. Pt was seen yesterday by provider, Elizabeth Oconnor for Hematuria(please see Ms Dale's note). Pt was started on Antibiotics and UA/UC ordered but specimen is yet to be obtained from patient. Vital Signs - 24 hr 11/15/19 11/15/19 11/15/19 00:30 03:30 07:12 Respiratory 18 18 18 Rate Alert o x 3 nad oob ambulating with steady gait. extremities/skin:no edema;skin intact. A/P new rehab pt s/p detox Maintain safety continue rehab d/w pt and explained he needs to give urine specimen to be sent to lab. Pt agreed he understands poc/explanation.
[2019-11-15] MEDS: THIAMINE HCL 100 MG TABLET (FP) PO SCH (21:49)
[2019-11-15] MEDS: MELATONIN 5 MG TABLETS PO PRN (21:49)
[2019-11-16] MEDS: AMOXICILLIN 250 MG CAPSULE PO SCH ×2 (10:49→21:53)
[2019-11-16] MEDS: PRENATAL VITAMINS W/ FOLIC ACID TABLET (FP) PO SCH (10:49)
--- NOTE | 2019-11-16 11:14 | EKG ---
Test Reason : Blood Pressure : / mmHG Vent. Rate : 063 BPM Atrial Rate : 063 BPM P-R Int : 150 ms QRS Dur : 094 ms QT Int : 408 ms P-R-T Axes : 047 073 026 degrees QTc Int : 417 ms NORMAL SINUS RHYTHM NONSPECIFIC ST ABNORMALITY ABNORMAL ECG WHEN COMPARED WITH ECG OF 22-MAY-2018 12:31, NONSPECIFIC T WAVE ABNORMALITY NOW EVIDENT IN INFERIOR LEADS Confirmed by MARTHA GRACIA, CARMELO ([id number]) on 11/16/2019 11:13:39 AM Referred By: Confirmed By:CARMELO THOMAS MD
[2019-11-16] MEDS: MELATONIN 5 MG TABLETS PO PRN (21:53)
[2019-11-16] MEDS: THIAMINE HCL 100 MG TABLET (FP) PO SCH (21:53)
[2019-11-17] MEDS: PRENATAL VITAMINS W/ FOLIC ACID TABLET (FP) PO SCH (10:59)
[2019-11-17] MEDS: AMOXICILLIN 250 MG CAPSULE PO SCH (10:59)
--- NOTE | 2019-11-17 13:38 | DS ---
[facility] Rehab Discharge Summary - [facility] Rehab Discharge Summary Admission Date: 11/14/19 Discharge Date: 11/17/19 - History Present History: Cannabis dependence, Cocaine dependence, Opioid dependence Additional Comments: Pt came to the nursing station angry and agitated and demanded he wants to signed out now or he will walk out right away. Pt met with his counselor, Ms David Contreras to discuss CD aftercare plans with Dwayne. Pt also got very agitated when this clinical writer wanted to meet with him and says to just give him his papers now or he is walking out and does not care. Pertinent Past History: IVDU - Discharge Physical Exam Vital Signs: Vital Signs Temperature Pulse Rate Respiratory Rate 18 11/17/19 06:59 Blood Pressure O2 Sat by Pulse Oximetry (%) Refused to speak to this provider. Pertinent Admission Physical Exam Findings: Laboratory Tests 11/14/19 22:25 Urine Color Red Urine Appearance Cloudy Urine pH 6.0 Ur Specific Galvin 1.018 Urine Protein Trace Urine Glucose (UA) Negative Urine Ketones Negative Urine Blood 3+ H Urine Nitrite Negative Urine Bilirubin Negative Urine Urobilinogen 0.2 Ur Leukocyte Esterase Trace Urine WBC (Auto) 6 Urine RBC (Auto) 2097 Urine Casts (Auto) 4 U Epithel Cells (Auto) 2.2 Urine Bacteria (Auto) 1.0 - Treatment Discharge Condition: Discharge condition good Hospital Course: Pt completed detox on [address] [place] on 11/14/19 and referred to rehab [place]. pt declined to continue with rehab today and signed out AMA - Medication Discharge Medications: Ambulatory Orders Naloxone HCl [Narcan] 4 mg NS ASDIR PRN #1 spray 11/10/19 Amoxicillin - [Amoxicillin 250mg Capsule -] 750 mg PO BID #10 capsule 11/17/19 - Medication-Assisted Treatment (MAT) Medication-Assisted Treatment (MAT): No - Discharge Instructions Diet, activity, other medical instructions: Diet:Regular Activity:oob ad sj Other medical instructions:follow up with CD aftercare recommendations. follow up with your primary care provider in 1 week for medical management. - Diagnosis (1) Alcohol dependence Current Visit: Yes Status: Chronic Qualifiers: Substance use status: uncomplicated Qualified Code(s): F10.20 - Alcohol dependence, uncomplicated (2) IVDU (intravenous drug user) Current Visit: Yes Status: Chronic (3) Weight loss Current Visit: Yes Status: Acute (4) Cocaine dependence Current Visit: Yes Status: Chronic Qualifiers: Substance use status: uncomplicated Qualified Code(s): F14.20 - Cocaine dependence, uncomplicated (5) Heroin dependence Current Visit: Yes Status: Chronic (6) Marijuana dependence Current Visit: Yes Status: Chronic - Follow-up Referral Minutes to complete discharge: 10 - AMA Did Patient Leave Against Medical Advice: Yes Additional Comments: Amoxicillin 750 mg po bid #10 electronically sent to patient [facility] pharmacy.
== END 2019-11-17 13:25 | disposition left against medical advice (07) | DRG 770 ==
LOC: YASAS 13:36 → Y5N 13:37
PROVIDERS: ADMIT Neuromusculoskeletal Medicine & OMM; ATTEND Neuromusculoskeletal Medicine & OMM
PROC: HZ42ZZZ Group Counseling for Substance Abuse Treatment, Cognitive-Behavioral (ICD-10-PCS; principal; 2019-11-14)
DX: F10.20 Alcohol dependence, uncomplicated (principal); F11.20 Opioid dependence, uncomplicated; F14.20 Cocaine dependence, uncomplicated; F12.20 Cannabis dependence, uncomplicated; R31.9 Hematuria, unspecified; R63.4 Abnormal weight loss; Z68.23 Body mass index [BMI] 23.0-23.9, adult
CPT/HCPCS: 81003; 87086; 93005; 93010

== ENCOUNTER 2019-12-17 10:00 | Inpatient (IN) | payer OTHER ==
[2019-12-17 10:47] VITALS: BMI 22.6
--- NOTE | 2019-12-17 11:16 | HP ---
COWS - Scale Resting Pulse: 1= [place] 81-100 Sweatin=Flushed/Facial Moisture Restless Observation: 3= Extraneous Movement Pupil Size: 2= Moderately Dilated Bone or Joint Aches: 1= Mild Discomfort Runny Nose/ Eye Tearin= Nasal Congestion GI Upset > 30mins: 1= Stomach Cramp Tremor Observation: 2= Slight Tremor Visible Yawning Observation: 1= 1-2x During Session Anxiety or Irritability: 2=Irritable/Anxious Goose Flesh Skin: 3=Piloerection COWS Score: 19 CIWA Score Nausea/Vomitin Muscle Tremors: 3 Anxiety: 2 Agitation: 2 Paroxysmal Sweats: 2 Orientation: 0-Oriented Tacttile Disturbances: 2-Mild Itch/Numbness/Burn Auditory Disturbances: 1-Very Mild Visual Disturbances: 1-Very Mild Sensitivity Headache: 1-Very Mild CIWA-Ar Total Score: 16 - Admission Criteria OASAS Guidelines: Admission for Medically Managed Detox: Requires at least one of the followin. CIWA greater than 12 2. Seizures within the past 24 hours 3. Delirium tremens within the past 24 hours 4. Hallucinations within the past 24 hours 5. Acute intervention needed for co occurring medical disorder 6. Acute intervention needed for co occurring psychiatric disorder 7. Severe withdrawal that cannot be handled at a lower level of care (continued vomiting, continued diarrhea, abnormal vital signs) requiring intravenous medication and/or fluids 8. Admitting History and Physical - Past Surgical History Past Surgical History: Yes: None - Smoking History Smoking history: Current some day smoker Have you smoked in the past 12 months: Yes Aproximately how many cigarettes per day: 2 If you are a former smoker, when did you quit?: at age 22 - Alcohol/Substance Use Hx Alcohol Use: Yes History of Substance Use: reports: Cocaine, Heroin Date of Last Use: 11/09/19 - Social History Usual Living Arrangement: Yes: Other (Homeless) ADL: Independent Occupation: Unemployed History of Recent Travel: No Admission ROS [facility] Chief Complaint: Withdrawal symptoms Allergies/Adverse Reactions: Allergies Allergy/AdvReac Type Severity Reaction Status Date / Time No Known Allergies Allergy Verified 12/17/19 10:33 History of Present Illness: 29 y.o. man with an extensive history of alcohol, heroin, marijuana, Xanax dependence is here seeking detox services. He was last here on 11/2019 for detox and rehab services. Does not have a significant period of sobriety and illicit drug abstinence. Exam Limitations: No Limitations - Ebola screening Have you traveled outside of the country in the last 21 days: No Have you had contact with anyone from an Ebola affected area: No Have you been sick,other than usual withdrawal symptoms: No Do you have a fever: No - Review of Systems Constitutional: Chills, Diaphoresis, Unexplained wgt Loss EENT: reports: Tearing, Nose Congestion Respiratory: reports: No Symptoms reported Cardiac: reports: No Symptoms Reported GI: reports: Nausea : reports: No Symptoms Reported Musculoskeletal: reports: Back Pain, Joint Pain Integumentary: reports: Bruising, Lumps, Sweating Neuro: reports: No Symptoms reported Endocrine: reports: No Symptoms Reported Hematology: reports: No Symptoms Reported Psychiatric: reports: Judgement Intact, Mood/Affect Appropiate Other Systems: Reviewed and Negative Patient History - Patient Medical History Hx Anemia: No Hx Asthma: No Hx Chronic Obstructive Pulmonary Disease (COPD): No Hx Cancer: No Hx Cardiac Disorders: No Hx Congestive Heart Failure: No Hx Hypertension: No Hx Hypercholesterolemia: No Hx Pacemaker: No HX Cerebrovascular Accident: No Hx Seizures: No Hx Dementia: No Hx Diabetes: No Hx Gastrointestinal Disorders: No Hx Liver Disease: No Hx Genitourinary Disorders: No Hx Sexually Transmitted Disorders: No Hx Renal Disease (ESRD): No Hx Thyroid Disease: No Hx Human Immunodeficiency Virus (HIV): No Hx Hepatitis C: No Hx Depression: Yes Hx Suicide Attempt: No Hx Bipolar Disorder: No Hx Schizophrenia: No - Patient Surgical History Past Surgical History: Yes Hx Neurologic Surgery: No Hx Cataract Extraction: No Hx Cardiac Surgery: No Hx Lung Surgery: No Hx Breast Surgery: No Hx Breast Biopsy: No Hx Abdominal Surgery: No Hx Appendectomy: No Hx Cholecystectomy: No Hx Genitourinary Surgery: No Hx Section: No Hx Orthopedic Surgery: No Other Surgical History: left inguinal hernia repair in 2016 Anesthesia Reaction: No - PPD History Previous Implant?: Yes Documented Results: Negative w/proof Implanted On Prior [facility] Admission?: Yes Date: 05/24/18 Results: 0 mm. PPD to be Administered?: Yes - Reproductive History Patient is a Female of Child Bearing Age (11 -55 yrs old): No - Smoking Cessation Smoking history: Current some day smoker Have you smoked in the past 12 months: Yes Aproximately how many cigarettes per day: 2 If you are a former smoker, when did you quit?: at age 22 Hx Chewing Tobacco Use: No Initiated information on smoking cessation: Yes 'Breaking Loose' booklet given: 12/17/19 - Substance & Tx. History Hx Alcohol Use: Yes Hx Substance Use: Yes Substance Use Type: Alcohol, Cocaine, Heroin, Marijuana - Substances abused Alcohol Substance route: Oral Frequency: Daily Amount used: 10 (24oz beers) Age of first use: 18 Date of last use: 12/16/19 Heroin Substance route: Injection Frequency: Daily Amount used: 10bags Age of first use: 26 Date of last use: 12/16/19 Cocaine Substance route: Injection Frequency: Daily Amount used: 1-2 grams Age of first use: 26 Date of last use: 12/16/19 Alprazolam (Xanax) Frequency: 1-3 times last 30 days Amount used: 4 Age of first use: 20 Date of last use: 12/10/19 Marijuana/Hashish Substance route: Inhalation Frequency: 3-6 times per week Amount used: $10 Age of first use: 18 Date of last use: 12/10/19 Admission Physical Exam S - Vital Signs Vital Signs: Vital Signs - 24 hr 12/17/19 10:41 Temperature 97.5 F L Pulse Rate 83 Respiratory 16 Rate Blood Pressure 134/60 - Physical General Appearance: Yes: Tremorous, Irritable, Sweating, Anxious HEENTM: Yes: Hearing grossly Normal, Normocephalic Respiratory: Yes: Lungs Clear, Normal Breath Sounds, No Respiratory Distress, Rapid RR Neck: Yes: No masses,lesions,Nodules, Trachea in good position Breast: Yes: Breast Exam Deferred Cardiology: Yes: Regular Rhythm, Regular Rate Abdominal: Yes: Within Normal Limits Genitourinary: Yes: Within Normal Limits Back: Yes: Within Normal Limits Musculoskeletal: Yes: Joint Stiffness Extremities: Yes: Tremors Neurological: Yes: Alert, Normal Mood/Affect, Normal Response Integumentary: Yes: Track [place] Lymphatic: Yes: Within Normal Limits - Diagnostic (1) Benzodiazepine abuse Current Visit: Yes Status: Acute (2) Abrasion of nose Current Visit: Yes Status: Acute (3) Alcohol dependence with uncomplicated withdrawal Current Visit: Yes Status: Chronic (4) Opioid dependence with withdrawal Current Visit: Yes Status: Chronic (5) Weight loss Current Visit: Yes Status: Acute (6) Cocaine dependence Current Visit: Yes Status: Chronic Qualifiers: Substance use status: uncomplicated Qualified Code(s): F14.20 - Cocaine dependence, uncomplicated (7) IVDU (intravenous drug user) Current Visit: Yes Status: Chronic (8) Marijuana dependence Current Visit: Yes Status: Chronic (9) Nicotine dependence Current Visit: Yes Status: Chronic Cleared for Admission S - Detox or Rehab [facility] Level of Care: Medically Managed Detox Regimen/Protocol: Methadone/Valium Breathalyzer - Breathalyzer Breathalyzer: 0 Urine Drug Screen - Test Device Lot number: [id number] Expiration date: 06/08/21 - Control Is test valid?: Yes - Results Drug screen NEGATIVE: No Urine drug screen results: THC-Marijuana, CHAKA-Cocaine, FEN-Fentanyl, MOP-Opiates , BUP-Suboxone Inpatient Rehab Admission - Rehab Decision to Admit Inpatient rehab admission?: No
[2019-12-17] MEDS ORDERED: hydrOXYzine PAMOATE 50 MG CAPSULE (FP) PO PRN (11:26)
[2019-12-17] MEDS ORDERED: MAG HYDROX/AL HYDROX/SIMETH 30 ML UNIT-DOSE CUP PO PRN (11:26)
[2019-12-17] MEDS ORDERED: ACETAMINOPHEN 325 MG TABLET (FP) PO PRN ×2 (11:26)
[2019-12-17] MEDS ORDERED: METHOCARBAMOL 500 MG TABLET PO PRN (11:26)
[2019-12-17] MEDS ORDERED: MAGNESIUM HYDROX 2400MG/30ML ORAL SUSPENSION 30 ML CUP PO PRN (11:26)
[2019-12-17] MEDS ORDERED: cloNIDine HCL 0.1 MG TABLET PO PRN (11:26)
[2019-12-17] MEDS ORDERED: MAGNESIUM CITRATE 300 ML BOTTLE PO PRN (11:26)
[2019-12-17] MEDS ORDERED: MENTHOL/PHENOL 1 EACH UD MM PRN (11:26)
[2019-12-17] MEDS ORDERED: BISMUTH SUBSALICYLATE 524 MG/30 ML UD PO PRN (11:26)
[2019-12-17] MEDS ORDERED: IBUPROFEN 400 MG TABLET (FP) PO PRN (11:26)
[2019-12-17] MEDS ORDERED: METHADONE HCL 10 MG TABLET (FOR DETOX USE ONLY) PO ONE (11:26)
[2019-12-17] MEDS ORDERED: diazePAM 5 MG TABLET PO ONE (11:45)
[2019-12-17] MEDS: diazePAM 5 MG TABLET PO SCH ×2 (14:03→21:38)
[2019-12-17] MEDS: METHYL SALICYLATE/MENTHOL OINT 30 GM TUBE TP SCH ×2 (14:11→21:40)
[2019-12-17] MEDS: THIAMINE HCL 100 MG TABLET (FP) PO SCH (21:37)
[2019-12-17] MEDS: MELATONIN 5 MG TABLETS PO PRN (21:38)
[2019-12-17] MEDS: BACITRACIN 15 GM TUBE TOPICAL OINTMENT TP SCH (21:40)
[2019-12-18] MEDS: diazePAM 5 MG TABLET PO SCH ×3 (05:53→22:09)
[2019-12-18] MEDS ORDERED: METHADONE HCL 10 MG TABLET (FOR DETOX USE ONLY) ONE (09:13)
[2019-12-18] MEDS ORDERED: METHADONE HCL 5 MG TABLET (FOR DETOX USE ONLY) ONE (09:13)
[2019-12-18] MEDS ORDERED: METHADONE (DETOX) 20 MG, METHADONE (DETOX) 5 MG PO ONE (10:00)
[2019-12-18 10:14] LABS: HEMATOCRIT 37.3 % (35.4-49); HEMOGLOBIN 12.4 GM/dL (11.7-16.9); MCH 30.2 pg (25.7-33.7); MCHC 33.3 g/dl (32.0-35.9); MEAN CELL VOLUME 90.8 fl (80-96); MEAN PLT VOLUME 7.6 fl (7.5-11.1); PLATELET COUNT 357 K/MM3 (134-434); RBC 4.11 M/mm3 (4.00-5.60); RDW 13.4 % (11.9-15.9)
[2019-12-18] MEDS: BACITRACIN 15 GM TUBE TOPICAL OINTMENT TP SCH ×2 (10:14→22:10)
[2019-12-18] MEDS: PRENATAL VITAMINS W/ FOLIC ACID TABLET (FP) PO SCH (10:14)
[2019-12-18] MEDS: METHYL SALICYLATE/MENTHOL OINT 30 GM TUBE TP SCH ×2 (10:14→22:10)
[2019-12-18] MEDS: diazePAM 5 MG TABLET PO PRN (10:15)
[2019-12-18 10:45] LABS: ALBUMIN 3.4 g/dl (3.4-5.0); BILIRUBIN,TOTAL 0.5 mg/dL (0.2-1); BLOOD UREA NITROGEN 15.9 mg/dL (7-18); CALCIUM 10.3 mg/dL (8.5-10.1); CREATININE 0.9 mg/dL (0.55-1.3); POTASSIUM 4.6 mmol/L (3.5-5.1); TOT PROT 6.8 g/dl (6.4-8.2)
--- NOTE | 2019-12-18 14:41 | PN ---
S CIWA - CIWA Score Nausea/Vomitin-Mild Nausea/No Vomiting Muscle Tremors: 4-Moderate,w/Arms Extend Anxiety: 4-Mod. Anxious/Guarded Agitation: 1-Slight > Activity Paroxysmal Sweats: 2 Orientation: 0-Oriented Tacttile Disturbances: 0-None Auditory Disturbances: 0-None Visual Disturbances: 1-Very Mild Sensitivity Headache: 1-Very Mild CIWA-Ar Total Score: 14 S COWS - Scale Resting Pulse: 0= [place] 80 or Below Sweatin= Chills/Flushing Restless Observation: 0= Sits Still Pupil Size: 1= Pupils >than Normal Bone or Joint Aches: 1= Mild Discomfort Runny Nose/ Eye Tearin= None GI Upset > 30mins: 2= Nausea/Diarrhea Tremor Observation of Outstretched Hands: 2= Slight Tremor Visible Yawning Observation: 0= None Anxiety or Irritability: 2=Irritable/Anxious Goose Flesh Skin: 3=Piloerection COWS Score: 12 S Progress Note (SOAP) Subjective: 29 years old male admitted on 12/17/19 for alcohol and opiate withdrawal sx management treating with valium and methadone detox regiment feeling ok today but tired prefers to stay in bed today limited conversation with staff Objective: 12/18/19 14:41 Vital Signs Temperature 98.1 F 12/18/19 13:03 Pulse Rate 78 12/18/19 13:03 Respiratory Rate 16 12/18/19 13:03 Blood Pressure 136/75 12/18/19 13:03 O2 Sat by Pulse Oximetry (%) Laboratory Last Values WBC 4.0 K/mm3 (4.0-10.0) 12/18/19 07:20 RBC 4.11 M/mm3 (4.00-5.60) 12/18/19 07:20 Hgb 12.4 GM/dL (11.7-16.9) 12/18/19 07:20 Hct 37.3 % (35.4-49) 12/18/19 07:20 MCV 90.8 fl (80-96) 12/18/19 07:20 MCH 30.2 pg (25.7-33.7) 12/18/19 07:20 MCHC 33.3 g/dl (32.0-35.9) 12/18/19 07:20 RDW 13.4 % (11.9-15.9) 12/18/19 07:20 Plt Count 357 K/MM3 (134-434) D 12/18/19 07:20 MPV 7.6 fl (7.5-11.1) 12/18/19 07:20 Sodium 139 mmol/L (136-145) 12/18/19 07:20 Potassium 4.6 mmol/L (3.5-5.1) 12/18/19 07:20 Chloride 106 mmol/L (98-107) 12/18/19 07:20 Carbon Dioxide 29 mmol/L (21-32) 12/18/19 07:20 Anion Gap 3 MMOL/L (8-16) L 12/18/19 07:20 BUN 15.9 mg/dL (7-18) 12/18/19 07:20 Creatinine 0.9 mg/dL (0.55-1.3) 12/18/19 07:20 Est GFR (CKD-EPI)AfAm 133.30 12/18/19 07:20 Est GFR (CKD-EPI)NonAf 115.01 12/18/19 07:20 Random Glucose 71 mg/dL (74-106) L 12/18/19 07:20 Calcium 10.3 mg/dL (8.5-10.1) H 12/18/19 07:20 Total Bilirubin 0.5 mg/dL (0.2-1) 12/18/19 07:20 AST 87 U/L (15-37) H 12/18/19 07:20 ALT 232 U/L (13-61) H 12/18/19 07:20 Alkaline Phosphatase 102 U/L (45-117) 12/18/19 07:20 Total Protein 6.8 g/dl (6.4-8.2) 12/18/19 07:20 Albumin 3.4 g/dl (3.4-5.0) 12/18/19 07:20 RPR Titer Nonreactive (NONREACTIVE) 12/18/19 07:20 lab noted Assessment: 12/18/19 14:41 alcohol and opiate withdrawal Plan: valium and methadone regiments
[2019-12-18] MEDS: THIAMINE HCL 100 MG TABLET (FP) PO SCH (22:09)
[2019-12-18] MEDS: MELATONIN 5 MG TABLETS PO PRN (22:09)
[2019-12-19] MEDS ORDERED: diazePAM 5 MG TABLET PO SCH (06:00)
--- NOTE | 2019-12-19 09:12 | PN ---
[facility] CIWA - CIWA Score Nausea/Vomitin-Mild Nausea/No Vomiting Muscle Tremors: 3 Anxiety: 3 Agitation: 1-Slight > Activity Paroxysmal Sweats: 2 Orientation: 0-Oriented Tacttile Disturbances: 0-None Auditory Disturbances: 0-None Visual Disturbances: 1-Very Mild Sensitivity Headache: 0-None Present CIWA-Ar Total Score: 11 S COWS - Scale Resting Pulse: 0= [place] 80 or Below Sweatin= Chills/Flushing Restless Observation: 0= Sits Still Pupil Size: 1= Pupils >than Normal Bone or Joint Aches: 1= Mild Discomfort Runny Nose/ Eye Tearin= Nasal Congestion GI Upset > 30mins: 2= Nausea/Diarrhea Tremor Observation of Outstretched Hands: 2= Slight Tremor Visible Yawning Observation: 1= 1-2x During Session Anxiety or Irritability: 2=Irritable/Anxious Goose Flesh Skin: 0=Smooth Skin COWS Score: 11 [facility] Progress Note (SOAP) Subjective: 29 years old male admitted on 12/17/19 for alcohol and opiate withdrawal sx management treating with valium and methadone detox regiments feeling ok today ate breakfast tolerated food and fluid well resting in bed strongly recommend Mr Hernandez to attend behavior and psychosocial therapies groups and meetings as part of detox process Objective: 12/19/19 09:09 Vital Signs Temperature 98.0 F 12/19/19 05:34 Pulse Rate 71 12/19/19 05:34 Respiratory Rate 18 12/19/19 05:34 Blood Pressure 101/51 L 12/19/19 05:34 O2 Sat by Pulse Oximetry (%) Laboratory Last Values WBC 4.0 K/mm3 (4.0-10.0) 12/18/19 07:20 RBC 4.11 M/mm3 (4.00-5.60) 12/18/19 07:20 Hgb 12.4 GM/dL (11.7-16.9) 12/18/19 07:20 Hct 37.3 % (35.4-49) 12/18/19 07:20 MCV 90.8 fl (80-96) 12/18/19 07:20 MCH 30.2 pg (25.7-33.7) 12/18/19 07:20 MCHC 33.3 g/dl (32.0-35.9) 12/18/19 07:20 RDW 13.4 % (11.9-15.9) 12/18/19 07:20 Plt Count 357 K/MM3 (134-434) D 12/18/19 07:20 MPV 7.6 fl (7.5-11.1) 12/18/19 07:20 Sodium 139 mmol/L (136-145) 12/18/19 07:20 Potassium 4.6 mmol/L (3.5-5.1) 12/18/19 07:20 Chloride 106 mmol/L (98-107) 12/18/19 07:20 Carbon Dioxide 29 mmol/L (21-32) 12/18/19 07:20 Anion Gap 3 MMOL/L (8-16) L 12/18/19 07:20 BUN 15.9 mg/dL (7-18) 12/18/19 07:20 Creatinine 0.9 mg/dL (0.55-1.3) 12/18/19 07:20 Est GFR (CKD-EPI)AfAm 133.30 12/18/19 07:20 Est GFR (CKD-EPI)NonAf 115.01 12/18/19 07:20 Random Glucose 71 mg/dL (74-106) L 12/18/19 07:20 Calcium 10.3 mg/dL (8.5-10.1) H 12/18/19 07:20 Total Bilirubin 0.5 mg/dL (0.2-1) 12/18/19 07:20 AST 87 U/L (15-37) H 12/18/19 07:20 ALT 232 U/L (13-61) H 12/18/19 07:20 Alkaline Phosphatase 102 U/L (45-117) 12/18/19 07:20 Total Protein 6.8 g/dl (6.4-8.2) 12/18/19 07:20 Albumin 3.4 g/dl (3.4-5.0) 12/18/19 07:20 RPR Titer Nonreactive (NONREACTIVE) 12/18/19 07:20 lab noted Assessment: 12/19/19 09:12 alcohol and opiate withdrawal Plan: valium and methadone regiments
[2019-12-19] MEDS ORDERED: METHADONE HCL 10 MG TABLET (FOR DETOX USE ONLY) PO ONE (10:00)
[2019-12-19] MEDS: PRENATAL VITAMINS W/ FOLIC ACID TABLET (FP) PO SCH (10:06)
[2019-12-19] MEDS: BACITRACIN 15 GM TUBE TOPICAL OINTMENT TP SCH (10:06)
[2019-12-19] MEDS: METHYL SALICYLATE/MENTHOL OINT 30 GM TUBE TP SCH (10:06)
[2019-12-19] MEDS: diazePAM 5 MG TABLET PO PRN (10:09)
[2019-12-19 13:56] VITALS: BP 123/72; PULSE 88; TEMP 97.4
--- NOTE | 2019-12-19 16:29 | DS ---
[facility] Detox Discharge Summary Admission Date: 12/17/19 Discharge Date: 12/19/19 - History Present History: Alcohol Dependence, Opioid Dependence Additional Comments: 29 years old male admitted on 12/17/19 for alcohol and opiate withdrawal sx mangement treated with valium adn methadone detox regiments patient demands resume valium regiment along with methadone patient became angry and demanding and verbally abuse toward staff team met with the patient verbally contract for self control and safety of the staff and other patients after lunch patient presents disrespectful demanding abusive threatening behavior toward staff aggressive language and demand for more valium "I use a lot of xanax" "I want valium" nurse web project manager, counselor machining department supervisor, nursing assistance, and manual writer met with the patient in day room along with the security staffer discuss inappropriate behavior with abusive language patient became angry that "I do what F I want" patient insists to leave the detox unit case discussed with the nurse against medical advice is appropriated Pertinent Past History: time for discharge 55 minutes patient is alert oriented x 3 speech clearly coherently ambulating steady gait [place]ian counselor presents at the team meeting with the patient encourage the patient to complete the detox regiment with acceptable behavior patient prefers to continue abusive language rather leave the detox unit at this time - Physical Exam Results Vital Signs: Vital Signs Temperature 97.4 F L 12/19/19 12:40 Pulse Rate 88 12/19/19 12:40 Respiratory Rate 19 12/19/19 12:40 Blood Pressure 123/72 12/19/19 12:40 O2 Sat by Pulse Oximetry (%) Pertinent Admission Physical Exam Findings: alcohol and opiate withdrawal Laboratory Last Values WBC 4.0 K/mm3 (4.0-10.0) 12/18/19 07:20 RBC 4.11 M/mm3 (4.00-5.60) 12/18/19 07:20 Hgb 12.4 GM/dL (11.7-16.9) 12/18/19 07:20 Hct 37.3 % (35.4-49) 12/18/19 07:20 MCV 90.8 fl (80-96) 12/18/19 07:20 MCH 30.2 pg (25.7-33.7) 12/18/19 07:20 MCHC 33.3 g/dl (32.0-35.9) 12/18/19 07:20 RDW 13.4 % (11.9-15.9) 12/18/19 07:20 Plt Count 357 K/MM3 (134-434) D 12/18/19 07:20 MPV 7.6 fl (7.5-11.1) 12/18/19 07:20 Sodium 139 mmol/L (136-145) 12/18/19 07:20 Potassium 4.6 mmol/L (3.5-5.1) 12/18/19 07:20 Chloride 106 mmol/L (98-107) 12/18/19 07:20 Carbon Dioxide 29 mmol/L (21-32) 12/18/19 07:20 Anion Gap 3 MMOL/L (8-16) L 12/18/19 07:20 BUN 15.9 mg/dL (7-18) 12/18/19 07:20 Creatinine 0.9 mg/dL (0.55-1.3) 12/18/19 07:20 Est GFR (CKD-EPI)AfAm 133.30 12/18/19 07:20 Est GFR (CKD-EPI)NonAf 115.01 12/18/19 07:20 Random Glucose 71 mg/dL (74-106) L 12/18/19 07:20 Calcium 10.3 mg/dL (8.5-10.1) H 12/18/19 07:20 Total Bilirubin 0.5 mg/dL (0.2-1) 12/18/19 07:20 AST 87 U/L (15-37) H 12/18/19 07:20 ALT 232 U/L (13-61) H 12/18/19 07:20 Alkaline Phosphatase 102 U/L (45-117) 12/18/19 07:20 Total Protein 6.8 g/dl (6.4-8.2) 12/18/19 07:20 Albumin 3.4 g/dl (3.4-5.0) 12/18/19 07:20 RPR Titer Nonreactive (NONREACTIVE) 12/18/19 07:20 lab noted - Treatment Hospital Course: Detox Protocol Followed Patient has Accepted a Rehab Referral to: community support resources - Medication Discharge Medications: Ambulatory Orders NK [No Known Home Medication] 12/17/19 - Diagnosis (1) Weight loss Status: Acute (2) Alcohol dependence with uncomplicated withdrawal Status: Acute (3) Nicotine dependence Status: Acute Qualifiers: Nicotine product type: cigarettes Substance use status: in withdrawal Qualified Code(s): F17.213 - Nicotine dependence, cigarettes, with withdrawal (4) Opioid dependence with withdrawal Status: Acute - AMA Did Patient Leave Against Medical Advice: Yes
[2019-12-20] MEDS ORDERED: diazePAM 5 MG TABLET PO ONE (06:00)
[2019-12-20] MEDS ORDERED: METHADONE (DETOX) 10 MG, METHADONE (DETOX) 5 MG PO ONE (10:00)
[2019-12-21] MEDS ORDERED: METHADONE HCL 10 MG TABLET (FOR DETOX USE ONLY) PO ONE (10:00)
[2019-12-22] MEDS ORDERED: METHADONE HCL 5 MG TABLET (FOR DETOX USE ONLY) PO ONE (06:00)
== END 2019-12-19 14:39 | disposition left against medical advice (07) | DRG 770 ==
LOC: YASAS 10:00 → Y3N 12:06
PROVIDERS: ADMIT Allergy & Immunology; ATTEND Allergy & Immunology
PROC: HZ2ZZZZ Detoxification Services for Substance Abuse Treatment (ICD-10-PCS; principal; 2019-12-17)
DX: F11.23 Opioid dependence with withdrawal (principal); F10.230 Alcohol dependence with withdrawal, uncomplicated; F14.20 Cocaine dependence, uncomplicated; F12.20 Cannabis dependence, uncomplicated; F13.10 Sedative, hypnotic or anxiolytic abuse, uncomplicated; F17.213 Nicotine dependence, cigarettes, with withdrawal; R63.4 Abnormal weight loss
CPT/HCPCS: 36415; 80053; 85027; 86593

== ENCOUNTER 2022-03-28 13:02 | Inpatient (IN) | payer OTHER ==
[2022-03-28] MEDS ORDERED: cloNIDine HCL 0.1 MG TABLET PO PRN (14:22)
[2022-03-28] MEDS ORDERED: LOPERAMIDE HCL 2 MG CAPSULE PO PRN (14:22)
[2022-03-28] MEDS ORDERED: methaDONE HCL 10 MG TABLET (FOR DETOX USE ONLY) PO ONE ×2 (14:22→20:00)
[2022-03-28] MEDS ORDERED: ONDANSETRON *ODT* 4 MG TABLET SL PRN (14:22)
[2022-03-28] MEDS ORDERED: MAG HYDROX/AL HYDROX/SIMETH 30 ML UNIT-DOSE CUP PO PRN (14:22)
[2022-03-28] MEDS ORDERED: ACETAMINOPHEN 325 MG TABLET (FP) PO PRN ×2 (14:22)
[2022-03-28] MEDS ORDERED: DICYCLOMINE HCL 10 MG CAPSULE PO PRN (14:22)
[2022-03-28] MEDS ORDERED: NICOTINE 10 MG CARTRIDGE (INHALER) IH PRN (14:22)
[2022-03-28] MEDS ORDERED: MAGNESIUM CITRATE 300 ML BOTTLE PO PRN (14:22)
[2022-03-28] MEDS ORDERED: BISMUTH SUBSALICYLATE 262 MG/15 ML BTL PO PRN (14:22)
[2022-03-28] MEDS ORDERED: BENZOCAINE/MENTHOL (CHLORASEPTIC ) LOZENGE MM PRN (14:22)
[2022-03-28] MEDS ORDERED: MAGNESIUM HYDROX 2400MG/30ML ORAL SUSPENSION 30 ML CUP PO PRN (14:22)
[2022-03-28] MEDS ORDERED: IBUPROFEN 400 MG TABLET (FP) PO PRN (14:22)
[2022-03-28] MEDS ORDERED: NALOXONE HCL (KLOXXADO) 8 MG SPRAY NS PRN (14:27)
[2022-03-28 14:56] VITALS: BMI 20.7
[2022-03-28] MEDS ORDERED: hydrOXYzine PAMOATE 25 MG CAPSULE (FP) PO SCH (18:00)
[2022-03-28] MEDS: BACITRACIN 0.9 GM PACKET TP SCH (18:35)
[2022-03-28] MEDS: THIAMINE HCL 100 MG TABLET (FP) PO SCH (22:24)
[2022-03-28] MEDS: valACYclovir HCL 500 MG TABLET (FP) PO SCH (22:24)
[2022-03-28] MEDS: MELATONIN 5 MG TABLETS PO SCH (22:24)
[2022-03-29] MEDS ORDERED: methaDONE HCL 10 MG TABLET (FOR DETOX USE ONLY) ONE (09:09)
[2022-03-29] MEDS: BACITRACIN 0.9 GM PACKET TP SCH (10:50)
[2022-03-29] MEDS: valACYclovir HCL 500 MG TABLET (FP) PO SCH (10:50)
[2022-03-29] MEDS: PRENATAL VITAMINS W/ FOLIC ACID TABLET (FP) PO SCH (10:50)
[2022-03-29 13:47] LABS: HEMOGLOBIN 14.2 GM/dL (11.7-16.9); MCHC 32.4 g/dl (32.0-35.9); MEAN CELL VOLUME 95.7 fl (80-96); MEAN PLT VOLUME 8.4 fl (7.5-11.1); PLATELET COUNT 277 10^3/uL (134-434); RBC 4.59 M/mm3 (4.00-5.60); RDW 13.1 % (11.9-15.9); WHITE BLOOD COUNT 5.8 K/mm3 (4.0-10.0)
[2022-03-29 14:07] LABS: ALBUMIN 3.3 g/dl (3.4-5.0); CREATININE 0.8 mg/dL (0.55-1.3)
[2022-03-29 14:08] LABS: CALCIUM 10.8 mg/dL (8.5-10.1)
[2022-03-29 14:09] LABS: TOT PROT 6.5 g/dl (6.4-8.2)
[2022-03-29 14:11] LABS: SARS-CoV-2 NAA Not Detected (Not Detected)
[2022-03-29 14:15] LABS: BILIRUBIN,TOTAL 0.7 mg/dL (0.2-1)
[2022-03-29 14:46] LABS: HIV INTERPRETATION NEGATIVE (NEGATIVE)
[2022-03-29 15:19] LABS: BLOOD UREA NITROGEN 21.1 mg/dL (7-18)
[2022-03-29] MEDS: MELATONIN 5 MG TABLETS PO SCH (23:53)
[2022-03-29] MEDS: THIAMINE HCL 100 MG TABLET (FP) PO SCH (23:53)
[2022-03-30] MEDS ORDERED: methaDONE HCL 10 MG TABLET (FOR DETOX USE ONLY) PO ONE (10:00)
[2022-03-30] MEDS: hydrOXYzine PAMOATE 25 MG CAPSULE (FP) PO PRN (10:07)
[2022-03-30] MEDS: PRENATAL VITAMINS W/ FOLIC ACID TABLET (FP) PO SCH (10:07)
[2022-03-30] MEDS: BACITRACIN 0.9 GM PACKET TP SCH (10:07)
[2022-03-30] MEDS: METHOCARBAMOL 500 MG TABLET PO PRN (10:07)
[2022-03-30 14:07] LABS: SARS-CoV-2 NAA Not Detected (Not Detected)
[2022-03-30] MEDS ORDERED: CEPHALEXIN MONOHYDRATE 500 MG CAPSULE (UD) PO ONE (15:31)
[2022-03-30] MEDS: CEPHALEXIN MONOHYDRATE 500 MG CAPSULE (UD) PO SCH (22:47)
[2022-03-30] MEDS: MUPIROCIN 2% TOPICAL OINTMENT 22 GM TUBE TP SCH (22:47)
[2022-03-30] MEDS: THIAMINE HCL 100 MG TABLET (FP) PO SCH (22:47)
[2022-03-30] MEDS: MELATONIN 5 MG TABLETS PO SCH (22:48)
[2022-03-31] MEDS ORDERED: methaDONE HCL 10 MG TABLET (FOR DETOX USE ONLY) ONE (09:07)
[2022-03-31] MEDS: PRENATAL VITAMINS W/ FOLIC ACID TABLET (FP) PO SCH (09:42)
[2022-03-31] MEDS: hydrOXYzine PAMOATE 25 MG CAPSULE (FP) PO PRN ×2 (09:42→22:16)
[2022-03-31] MEDS: CEPHALEXIN MONOHYDRATE 500 MG CAPSULE (UD) PO SCH ×2 (09:42→22:16)
[2022-03-31] MEDS: METHOCARBAMOL 500 MG TABLET PO PRN ×2 (09:42→22:16)
[2022-03-31] MEDS: MUPIROCIN 2% TOPICAL OINTMENT 22 GM TUBE TP SCH ×2 (09:44→22:16)
[2022-03-31] MEDS: BACITRACIN 0.9 GM PACKET TP SCH (09:50)
[2022-03-31] MEDS: MELATONIN 5 MG TABLETS PO SCH (22:16)
[2022-03-31] MEDS: THIAMINE HCL 100 MG TABLET (FP) PO SCH (22:16)
[2022-04-01 08:56] VITALS: TEMP 97.1
[2022-04-01] MEDS ORDERED: methaDONE HCL 10 MG TABLET (FOR DETOX USE ONLY) PO ONE (10:00)
[2022-04-01] MEDS: PRENATAL VITAMINS W/ FOLIC ACID TABLET (FP) PO SCH (11:05)
[2022-04-01] MEDS: hydrOXYzine PAMOATE 25 MG CAPSULE (FP) PO PRN (11:06)
[2022-04-01] MEDS: CEPHALEXIN MONOHYDRATE 500 MG CAPSULE (UD) PO SCH (11:06)
[2022-04-01] MEDS: BACITRACIN 0.9 GM PACKET TP SCH (11:06)
[2022-04-01] MEDS: MUPIROCIN 2% TOPICAL OINTMENT 22 GM TUBE TP SCH (11:06)
[2022-04-01] MEDS: METHOCARBAMOL 500 MG TABLET PO PRN (11:06)
[2022-04-01 13:28] VITALS: BP 116/60; PULSE 57
== END 2022-04-01 14:28 | disposition home or self-care (01) | DRG 773 ==
LOC: YASAS 13:02 → Y6N 16:59
PROVIDERS: ADMIT Allergy & Immunology; ATTEND Surgery
PROC: HZ2ZZZZ Detoxification Services for Substance Abuse Treatment (ICD-10-PCS; principal; 2022-03-28)
DX: F11.23 Opioid dependence with withdrawal (principal); F14.20 Cocaine dependence, uncomplicated; F12.20 Cannabis dependence, uncomplicated; F17.213 Nicotine dependence, cigarettes, with withdrawal; B00.1 Herpesviral vesicular dermatitis; R63.4 Abnormal weight loss; Z68.20 Body mass index [BMI] 20.0-20.9, adult
CPT/HCPCS: 36415; 80053; 85027; 86694; 86780; 87389; 93005; 93010; C9803-CS; J0735; U0003; U0005